=== PATIENT | male | born 1945 | race Caucasian/White ===

== ENCOUNTER 2017-04-14 15:30 | Inpatient (IN) | payer SELFPAY ==
--- NOTE | 2017-04-14 15:40 | ED PDOC ---
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 Shortness of breath has been progressively worsening for past 2 days. is at bedside and tells the history. Patient and speak French and international account representative machine is used. Pt is A&Ox 3. states that patient had subjective fever 2 days ago. Patient denies having any cough, CP, abd pain, N/V/D/C. Patient does complain of LE pain and per , patient is not ambulatory at home. No history of paracentesis. Patient has about 3-4 BMs daily. NKDA Denies Sx Denies tobacco, ETOH or drug use. GI: Dr. Bolivar (Shaniqua Smith) Past Medical History - Provider Review Nursing Documentation Reviewed: Yes - Travel History Have you recently traveled outside [place] w/in the past 3 mons?: No <Shaniqua Smith - Last Filed: 04/14/17 17:31> Family/Social History - Physician Review Nursing Documentation Reviewed: Yes Family/Social History: Unknown Family HX <Shaniqua Smith - Last Filed: 04/14/17 17:31> Allergies/Home Meds <Shaniqua Smith - Last Filed: 04/14/17 17:31> <Freddy Carney - Last Filed: 04/14/17 17:47> Allergies/Adverse Reactions: Allergies No Known Allergies Allergy (Verified 04/14/17 15:49) Home Medications: Home Meds Medication Instructions Recorded Confirmed Dicyclomine [Bentyl] 20 mg PO BID 04/14/17 04/14/17 Furosemide [Lasix] 20 mg PO DAILY 04/14/17 04/14/17 Ledipasvir/Sofosbuvir [Harvoni 1 tab PO DAILY 04/14/17 04/14/17 90-400 mg Tablet] Spironolactone [Aldactone] 50 g PO BID 04/14/17 04/14/17 Review of Systems - Review of Systems Constitutional: Fevers. absent: Fatigue, Weight Change Eyes: Normal. absent: Vision Changes, Photophobia ENT: Normal. absent: Hearing Changes, Sore Throat, Rhinorrhea Respiratory: SOB, Wheezing. absent: Cough, Sputum Cardiovascular: Normal. absent: Chest Pain, Palpitations, Edema, Calf Pain Gastrointestinal: Other (abdominal swelling ). absent: Abdominal Pain, Constipation, Diarrhea, Nausea, Vomiting Genitourinary Male: Normal. absent: Dysuria, Frequency Musculoskeletal: Joint Swelling (LE swelling B/L ). absent: Arthralgias, Back Pain, Neck Pain Skin: Normal. absent: Rash, Pruritis, Skin Lesions, Laceration Neurological: Normal. absent: Headache, Dizziness Endocrine: Normal. absent: Diaphoresis, Polyuria Hemo/Lymphatic: Normal. absent: Adenopathy Psychiatric: Normal. absent: Anxiety, Depression <Amn Saraha - Last Filed: 04/14/17 17:31> Physical Exam Vital Signs Reviewed: Yes Temperature: Febrile Blood Pressure: Normal Pulse: Tachycardic Respiratory Rate: Tachypneic Appearance: Positive for: Ill-Appearing, Uncomfortable Pain Distress: Mild Mental Status: Positive for: Alert and Oriented X 3 - Systems Exam Head: Present: Atraumatic, Normocephalic Pupils: Present: PERRL Conjunctiva: Present: Icteric Mouth: Present: Moist Mucous Membranes Respiratory/Chest: Present: Good Air Exchange, Wheezes, Tachypneic. No: Respiratory Distress, Accessory Muscle Use, Rales, Rhonchi Cardiovascular: Present: Normal S1, S2, Tachycardic. No: Irregular Rhythm Abdomen: Present: Distention, Normal Bowel Sounds. No: Tenderness, Peritoneal Signs, Rebound, Guarding Lower Extremity: Present: Edema (B/L LE edema 2+). No: CALF TENDERNESS Neurological: Present: GCS=15 Skin: Present: Warm, Dry, Normal Color. No: Rashes Psychiatric: Present: Alert, Oriented x 3, Normal Insight, Normal Concentration <SarahShaniqua - Last Filed: 04/14/17 17:31> Medical Decision Making - EKG Interpretation Interpreted by ED Physician: Yes Type: 12 lead EKG <Shaniqua Smith - Last Filed: 04/14/17 17:31> <Freddy Carney - Last Filed: 04/14/17 17:47> ED Course and Treatment: 04/14/17 16:19 71 y/o M presents for SOB likely 2/2 worsening ascites VS. PNA vs. brinchitis Will check: CBC, CMP, cardiac enzymes, lipase, ammonia, PT, PTT, blood and urine cultures, UA Patient will be given motrin, NS 500 cc bolus, xopenex. 04/14/17 16:41 Code sepsis is called at 4:41 pm. Patient is tachycardic, febrile and has lactic acid of 2.3 04/14/17 17:22 Therpeutic paracentesis performed at bedside. Dr. Carney spoke with Dr. Vines who accepts pt under hospitalists service. (Shaniqua Smith) pt seen with resident. pt with liver cirrhosis, febrile, tachycardic, r/o pna, sbp, sepsis. code sepsis called. diagnositic and therapeutic paracentesis performed under US guidance. 4 L removed. accepted by hospital r/o sbp 04/14/17 17:43 (Freddy Carney) - Lab Interpretations Narrative Lab Interpretation (Text): 04/14/17 16:42 lactic acid is 2.3 (Shaniqua Smith) Lab Results: 04/14/17 15:50 04/14/17 15:50 Lab Results 04/14/17 16:48: Ammonia 31 04/14/17 15:50: PT 16.4 H, INR 1.52 H, APTT 37.7 H 04/14/17 15:50: Sodium 130 L, Chloride 99, Potassium 3.8, Carbon Dioxide 27, Anion Gap 8 L, BUN 16, Creatinine 1.0, Est GFR ( Amer) > 60, Est GFR (Non -Af Amer) > 60, Random Glucose 107, Calcium 7.5 L, Total Bilirubin 1.8 H, AST 64 H, ALT 25, Alkaline Phosphatase 127, Lactate Dehydrogenase 574, Total Creatine Kinase 276 H, CK-MB (CK-2) < 0.2, CK-MB (CK-2) % Cancelled, Troponin I 0.03, Total Protein 7.6, Albumin 2.4 L, Globulin 5.2, Albumin/Globulin Ratio 0.5 L, Lipase 180 04/14/17 15:50: pO2 39, VBG pH 7.40, VBG pCO2 45.0, VBG HCO3 27.9, VBG Total CO2 29.3 H, VBG O2 Sat (Calc) 80.7 H, VBG Base Excess 2.6 H, VBG Potassium 4.0, Sodium 131.0 L, Chloride 97.0 L, Glucose 110, Lactate 2.3 H, FiO2 21.0, Venous Blood Potassium 4.0 04/14/17 15:50: WBC 10.3 D, RBC 3.89, Hgb 11.4 L, Hct 33.3 L, MCV 85.6, MCH 29.3, MCHC 34.2, RDW 15.1 H, Plt Count 98 L, MPV 10.4 - RAD Interpretation Radiology Orders: 04/14/17 16:08 CHEST PORTABLE [RAD] Stat - EKG Interpretation EKG Interpretation (Text): 04/14/17 15:40 Sinus tachycardia HR of [address] changes, normal interval and normal axis ( Karim,Shaniqua) - Medication Orders Current Medication Orders: Discontinued Medications Sodium Chloride (Sodium Chloride 0.9%) 500 mls @ 999 mls/hr IV .Q31M STA Stop: 04/14/17 16:36 Last Admin: 04/14/17 16:26 Dose: 999 mls/hr Vancomycin HCl (Vancomycin 1gm) 1 gm in 250 mls @ 167 mls/hr IVPB STAT STA PRN Reason: Protocol Stop: 04/14/17 17:37 Last Admin: 04/14/17 17:13 Dose: 167 mls/hr Piperacillin Sod/Tazobactam Sod (Zosyn 3.375 In Ns 100ml) 100 mls @ 200 mls/hr IVPB STAT STA PRN Reason: Protocol Stop: 04/14/17 16:37 Last Admin: 04/14/17 16:25 Dose: 200 mls/hr Ibuprofen (Motrin Tab) 400 mg PO STAT STA Stop: 04/14/17 16:25 Last Admin: 04/14/17 16:48 Dose: 400 mg Levalbuterol HCl (Xopenex) 0.63 mg IH ONCE STA Stop: 04/14/17 16:10 Last Admin: 04/14/17 16:24 Dose: 0.63 mg Procedures - Time-Out Type of Procedure: therapeutic paracentesis Site of Procedure: RLQ Correct Patient (with visual ID + MR# on ID Band): Yes Correct Procedure: Yes Correct Site Marked: Yes Physician Name: Dr. Shaniqua Smith <Shaniqua Smith - Last Filed: 04/14/17 17:31> Disposition/Present on Arrival - Present on Arrival Any Indicators Present on Arrival: No - Disposition Have Diagnosis and Disposition been Completed?: Yes Disposition Time: 17:23 Patient Plan: Admission <Shaniqua Smith - Last Filed: 04/14/17 17:31> <Freddy Carney - Last Filed: 04/14/17 17:47> - Disposition Diagnosis: Ascites, Sepsis, Shortness of breath Disposition: HOSPITALIZED Patient Problems: Current Active Problems Problem Status Onset Ascites Acute Sepsis Acute Shortness of breath Acute Condition: STABLE Discharge Instructions (ExitCare): Sepsis (ED) Referrals: Franky Rosario [Primary Care Provider] - Follow up with primary Procedure: Fluid Aspiration - Procedure Procedure: Paracentesis - Consent Obtained Consent obtained: Written - Performed By Performed by: Attending Physician - Indications Indication(s): Therapeutic, Diagnostic, Massive ascites, [email or web address] - Contraindications Contraindications: None - Location Location: Right, Abdomen - Anesthetic Technique Anesthetic Technique: Local Anesthetic: Lidocaine 1% Procedure: Usual prep and drape - Appearance Appearance: Straw-colored - Post-procedure Post-procedure: No fluid leak - Complications Complications: None - Patient tolerated procedure Patient tolerated procedure: Well <HadleyyeimiShaniqua - Last Filed: 04/14/17 17:31> - Time Performed Time Performed: 17:30 - Time Out Time Out: Side verified, Site verified, Patient ID confirmed, Sterile procedures obs. - Procedure Procedure: Paracentesis - Consent Obtained Consent obtained: Written - Performed By Performed by: Attending Physician - Indications Indication(s): Therapeutic, Diagnostic, Massive ascites, [email or web address] - Contraindications Contraindications: Coagulopathy (inr 1.5) - Location Location: Right - Anesthetic Technique Anesthetic Technique: Local Anesthetic: Lidocaine 1% Procedure: Usual prep and drape, Ultrasnd. guidance util. - Appearance Appearance: Serous - Drained Drained ml: 4 liters - Post-procedure Post-procedure: No fluid leak - Complications Complications: None - Patient tolerated procedure Patient tolerated procedure: Well <Freddy Carney - Last Filed: 04/14/17 17:47>
[2017-04-14] MEDS ORDERED: Sodium Chloride 0.9% 500 ML IV STA (16:06)
[2017-04-14] MEDS ORDERED: Piperacillin/Tazobact 3.375 gm 100 ML IVPB STA (16:08)
[2017-04-14] MEDS ORDERED: Vancomycin 1gm in NS 250ml 1 GM/250 ML BAG IVPB STA (16:08)
[2017-04-14] MEDS ORDERED: Levalbuterol 0.63 MG/3 ML Inhal Soln UD IH STA (16:09)
[2017-04-14 16:20] LABS: HEMATOCRIT 33.3 % (42.0-52.0); MEAN CELL VOLUME 85.6 fl (80.0-105.0); MEAN CORPUSCULAR HEMOGLOBIN 29.3 pg (25.0-35.0); MEAN CORPUSCULAR HGB CONC 34.2 g/dl (31.0-37.0); MEAN PLATELET VOLUME 10.4 fl (7.0-11.0); RED CELL DISTRIBUTION WIDTH 15.1 % (11.5-14.5); WHITE BLOOD COUNT 10.3 10^3/ul (4.5-11.0)
[2017-04-14 16:26] LABS: VENOUS BLOOD GAS BASE EXCESS 2.6 mmol/L (0.0-2.0)
[2017-04-14 16:36] LABS: ALB/GLOB RATIO 0.5 (1.1-1.8); ALKALINE PHOSPHATASE 127 U/L (38-133); ALT/SGPT 25 U/L (7-56); AST/SGOT 64 U/L (15-59); BILIRUBIN,TOTAL 1.8 mg/dL (0.2-1.3); BLOOD UREA NITROGEN 16 mg/dL (7-21); CALCIUM 7.5 mg/dL (8.4-10.5); CARBON DIOXIDE 27 mmol/L (21-33); CHLORIDE 99 mmol/L (98-107); GFR AFRICAN-AMERICAN > 60; GLUCOSE,RANDOM 107 mg/dL (70-110); LIPASE 180 U/L (23-300); POTASSIUM 3.8 mmol/L (3.6-5.0); SODIUM 130 mmol/L (132-148); TOTAL PROTEIN 7.6 g/dL (5.8-8.3)
[2017-04-14 16:41] LABS: INR 1.52 (0.93-1.08); PARTIAL THROMBOPLASTIN TIME 37.7 Seconds (23.7-30.8)
--- NOTE | 2017-04-14 16:46 | RAD ---
HISTORY: shortness of breath COMPARISON: No prior. FINDINGS: LUNGS: No active pulmonary disease. PLEURA: No significant pleural effusion identified, no pneumothorax apparent. CARDIOVASCULAR: Mild cardiomegaly OSSEOUS STRUCTURES: No significant abnormalities. VISUALIZED UPPER ABDOMEN: Normal. OTHER FINDINGS: None. IMPRESSION: No active disease.
[2017-04-14 16:48] LABS: TROPONIN I 0.03 ng/mL
[2017-04-14 18:08] LABS: BODY FLUID TYPE PERITONEAL
--- NOTE | 2017-04-14 18:26 | CP.PCM.HP ---
<ZEV WETZEL - Last Filed: 04/14/17 19:25> History of Present Illness - History of Present Illness History of Present Illness: CC: Shortness of breath 71 yo M Syriac-only speaking with 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 Pt son and mother is at bedside to translate. For the last 2 days, pt c/o worsening shortness of breath with subjective fevers. Pt states that he was unable to take care of him on his own at home as his condition was worsening and decided to bring him to the ED. Pt reports having a distended abdomen since being in [place], but denied ever having a paracentesis. Pt also c/o of b/l LE swelling and right LE pain with no apparent injury; pt is not ambulatory at home. Son reports no change in patient's mental status. Pt is originally from [place], where he was initially receiving treatment for his cirrhosis and hepatitis C. Pt came to the [place] about 1 year ago and is continuing treatment with [facility]. Pt denies CP, n/v/d, abdominal pain, melena, BRBPR, dysuria, pyuria, hematuria, chills, dizziness, ADAM, or rashes. PMHx: cirrhosis 2/2 hepatitis C Surg: denied PMHx: non-contributory All: NKDA Social: Denies tobacco, EtOH, or illicit drug use Meds: - Harvoni 90/400 daily - Dicyclomine 20 mg BID - Spironolactone 50 mg BID - Lasix 20 mg Daily Present on Admission - Present on Admission Any Indicators Present on Admission: No Review of Systems - Review of Systems Systems not reviewed;Unavailable: Language Barrier (Syriac speaking) - Constitutional Constitutional: Fever, Weakness. absent: Chills, Fatigue, Headache, Lethargy - EENT Eyes: absent: Change in Vision, Pain, Photophobia Ears: absent: Ear Pain Nose/Mouth/Throat: absent: Nasal Congestion, Nasal Discharge, Nasal Obstruction - Cardiovascular Cardiovascular: Leg Edema (b/l). absent: Chest Pain, Irregular Heart Rhythm, Syncope - Respiratory Respiratory: Dyspnea, Dyspnea on Exertion. absent: Hemoptysis, Wheezing, Stridor - Gastrointestinal Gastrointestinal: Bloating. absent: Abdominal Pain, Change in Stool Character, Coffee Ground Emesis, Constipation, Diarrhea, Dysphagia, Hematemesis, Hematochezia, Loose Stools, Melena - Genitourinary Genitourinary: absent: Dysuria, Flank Pain, Hematuria, Pyuria - Musculoskeletal Musculoskeletal: Arthralgias (RLE), Myalgias (RLE). absent: Numbness, Stiffness , Tingling - Integumentary Integumentary: absent: Erythema, Lesions, Non-Healing Lesions, Pruritus, Rash, Skin Ulcer, Jaundice - Neurological Neurological: absent: Behavioral Changes, Dizziness, Numbness, Tremor - Endocrine Endocrine: As Per HPI - Hematologic/Lymphatic Hematologic: As Per HPI Past Patient History - Infectious Disease Hx of Infectious Diseases: None - Past Social History Smoking Status: Never Smoked - CARDIAC Hx Cardiac Disorders: No - PULMONARY Hx Respiratory Disorders: No - NEUROLOGICAL Hx Neurological Disorder: No - HEENT Hx HEENT Problems: No - RENAL Hx Chronic Kidney Disease: No - ENDOCRINE/METABOLIC Hx Endocrine Disorders: No - HEMATOLOGICAL/ONCOLOGICAL Hx Blood Disorders: Yes Hx Hepatitis C: Yes - INTEGUMENTARY Hx Dermatological Problems: No - MUSCULOSKELETAL/RHEUMATOLOGICAL Hx Musculoskeletal Disorders: No - GASTROINTESTINAL Hx Gastrointestinal Disorders: Yes Hx Liver Failure: Yes - GENITOURINARY/GYNECOLOGICAL Hx Genitourinary Disorders: No - PSYCHIATRIC Hx Psychophysiologic Disorder: No Hx Substance Use: No - SURGICAL HISTORY Hx Surgeries: No - ANESTHESIA Hx Anesthesia: No Meds Allergies/Adverse Reactions: Allergies Allergy/AdvReac Type Severity Reaction Status Date / Time No Known Allergies Allergy Verified 04/14/17 15:49 Physical Exam - Constitutional Appears: No Acute Distress - Head Exam Head Exam: ATRAUMATIC, NORMOCEPHALIC - Eye Exam Eye Exam: EOMI, PERRL. absent: Scleral icterus Additional comments: Arcus senilis b/l - ENT Exam ENT Exam: Normal Oropharynx - Neck Exam Neck exam: Positive for: Full Rom. Negative for: Lymphadenopathy, Tenderness, Thyromegaly - Respiratory Exam Respiratory Exam: Clear to Auscultation Bilateral. absent: Rales, Rhonchi, Wheezes - Cardiovascular Exam Cardiovascular Exam: Tachycardia. absent: Diastolic murmur, Gallop, Rubs, Systolic Murmur - GI/Abdominal Exam GI & Abdominal Exam: Distended. absent: Firm, Guarding, Rebound, Tenderness ( No fluid wave, no caput medusae) - Exam Exam: Scrotal Swelling - Extremities Exam Extremities exam: Positive for: pedal edema (b/l L>R 2+/4 up to tibial plateau) , pedal pulses present. Negative for: normal capillary refill (slightly delayed ~3 seconds) Additional comments: L hip/knee PROM wnl, not TTP, negative anterior/posterior drawer test - Neurological Exam Neurological exam: Alert, CN II-XII Intact, Oriented x3 - Psychiatric Exam Psychiatric exam: Normal Affect, Normal Mood - Skin Skin Exam: Dry, Intact, Normal Color, Warm Additional comments: Poor skin turgor, no spider angiomas, no palmar erythema Results - Vital Signs Recent Vital Signs: Last Vital Signs Temp 102.9 F H 04/14/17 16:48 Pulse 116 H 04/14/17 15:30 Resp 18 04/14/17 15:42 BP 135/74 04/14/17 15:30 Pulse Ox 100 04/14/17 16:04 - Labs Result Diagrams: 04/14/17 15:50 04/14/17 15:50 Labs: Laboratory Results - last 24 hr 04/14/17 18:07 Fluid Source Peritoneal Assessment & Plan - Assessment and Plan (Free Text) Assessment: 71 yo Syriac speaking M with PMHx of cirrhosis 2/2 hepatitis C will be admitted for evaluation and treatment of sepsis and SOB 2/2 worsening ascites due to cirrhosis/hepatitis C. Plan: 1. Sepsis * On admission, pt febrile at 102.9 F, tachycardic at 116, and ascites * Code sepsis called in ED * Rocephin 1 gm IVPB daily * F/u fluid, blood, and urine cultures * F/u procalcitonin * Monitor on telemetry 2. Ascities 2/2 cirrhosis/hepatitis C * Paracentesis in the ED yielded 4 L of straw colored fluid * F/u peritoneal fluid analysis (Cell count, glucose, LDH, lipase, protein, culture) * Pt hypotensive s/p paracentesis, start Albumin 12.5 gm in AM * Cont. Harvoni daily x 5 days to complete treatment 3. Peripheral edema * Lasix 40 mg IVP * Spironolactone 50 mg PO BID GI/DVT PPx * Protonix * SCDs, will not give anticoagulation at this time as the pt is coagulopathic 2/ 2 cirrhosis Pt seen with Dr[address] Vines. <Humberto Vines B - Last Filed: 04/15/17 14:50> Results - Vital Signs Recent Vital Signs: Last Vital Signs Temp 98.5 F 04/15/17 00:01 Pulse 83 04/15/17 09:07 Resp 20 04/15/17 00:01 BP 98/67 L 04/15/17 09:20 Pulse Ox 100 04/15/17 00:01 - Labs Result Diagrams: 04/15/17 04:30 04/15/17 04:30 Labs: Laboratory Results - last 24 hr 04/14/17 04/14/17 04/15/17 18:07 19:10 04:30 WBC 5.9 D RBC 3.24 L Hgb 9.2 L D Hct 27.9 L MCV 86.1 MCH 28.4 MCHC 33.0 RDW 15.3 H Plt Count 86 L MPV 10.3 pO2 108 H VBG pH 7.44 H VBG pCO2 41.0 VBG HCO3 27.8 VBG Total CO2 29.1 H VBG O2 Sat (Calc) 99.2 H VBG Base Excess 3.3 H VBG Potassium 3.8 Sodium 131.0 L Chloride 103.0 Glucose 98 Lactate 1.7 FiO2 21.0 Potassium Carbon Dioxide Anion Gap BUN Creatinine Est GFR ( Amer) Est GFR (Non-Af Amer) Random Glucose Lactic Acid Calcium Phosphorus Magnesium Total Bilirubin AST ALT Alkaline Phosphatase Total Protein Albumin Globulin Albumin/Globulin Ratio Venous Blood Potassium 3.8 Urine Color Urine Appearance Urine pH Ur Specific Soper Urine Protein Urine Glucose (UA) Urine Ketones Urine Blood Urine Nitrate Urine Bilirubin Urine Urobilinogen Ur Leukocyte Esterase Urine RBC Urine WBC Urine Bacteria Fluid Source Peritoneal Fluid Appearance Clear Fluid WBC 25.3 Fluid RBC 26.4 H Fluid Tot Cell Count 100 H Fluid Neutrophils 1.0 H Fluid Lymphocytes 90.0 H Fld Monocyte/Macrophag 9 H Fluid Comment Yellow 04/15/17 04/15/17 04/15/17 04:30 09:08 10:33 WBC RBC Hgb Hct MCV MCH MCHC RDW Plt Count MPV pO2 VBG pH VBG pCO2 VBG HCO3 VBG Total CO2 VBG O2 Sat (Calc) VBG Base Excess VBG Potassium Sodium 133 Chloride 102 Glucose Lactate FiO2 Potassium 3.7 Carbon Dioxide 25 Anion Gap 10 BUN 21 Creatinine 1.2 Est GFR ( Amer) > 60 Est GFR (Non-Af Amer) 60 Random Glucose 84 Lactic Acid 4.1 H* Calcium 7.1 L Phosphorus 3.6 Magnesium 1.6 L Total Bilirubin 1.8 H AST 57 ALT 23 Alkaline Phosphatase 86 Total Protein 6.4 Albumin 2.1 L Globulin 4.3 Albumin/Globulin Ratio 0.5 L Venous Blood Potassium Urine Color Yellow Urine Appearance Sl cloudy Urine pH 5.5 Ur Specific Soper 1.025 Urine Protein 30 H Urine Glucose (UA) Negative Urine Ketones Negative Urine Blood Large H Urine Nitrate Positive H Urine Bilirubin Small H Urine Urobilinogen 1.0 H Ur Leukocyte Esterase Moderate H Urine RBC 1 - 3 Urine WBC 10 - 15 Urine Bacteria Many Fluid Source Fluid Appearance Fluid WBC Fluid RBC Fluid Tot Cell Count Fluid Neutrophils Fluid Lymphocytes Fld Monocyte/Macrophag Fluid Comment Attending/Attestation - Attestation I have personally seen and examined this patient.: Yes I have fully participated in the care of the patient.: Yes I have reviewed all pertinent clinical information: Yes Notes (Text): I have seen and examined patient at bedside. 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 Upon admission, he was found to have fever, tachycardia, coagulopathy, transaminitis and lactic acidosis. SBP was suspected. Ascitic fluid was tapped and 3-4 L were removed. Bergeron cultures ordered along with procal. Will start 3rd generation cephalosporin. Will follow up on ascitic fluid analysis. Subsequently he developed hypotension, therefore albumin was started. Hold diuretics due to hemodynamic instability. Will monitor patient very closely. Will order duplex US to rule out PVT. Ammonia level normal. Chilg Mora 9 and MELD score of 13. Will consult ID and GI. Upon discharge patient will follow up with Dr Little. Dr Humberto Vines
[2017-04-14 19:27] LABS: VENOUS BLOOD GAS BASE EXCESS 3.3 mmol/L (0.0-2.0); VENOUS BLOOD PH 7.44 (7.32-7.43)
[2017-04-14 20:40] LABS: BF GROSS APPEARANCE CLEAR (CLEAR)
[2017-04-14] MEDS: HARVONI PO SCH (21:00)
[2017-04-14] MEDS ORDERED: Pneumococcal 23-Valent Vaccine IM ONE (21:55)
[2017-04-14 22:27] VITALS: BMI 29.2
--- NOTE | 2017-04-14 23:54 | PCM.SEPTIC ---
<America Ambrose - Last Filed: 04/14/17 23:54> Sepsis Progress Note - Reassessment Type Date of Evaluation: 04/14/17 Time of Evaluation: 23:54 Reassessment Type: Non-invasive reassessment - Non Invasive Reassessment Were the most recent vital sign reviewed: Yes Vital Sign (Latest): Temp Pulse Resp BP Pulse Ox 98.3 F 96 H 20 84/48 L 100 04/14/17 21:39 04/14/17 21:39 04/14/17 21:39 04/14/17 21:39 04/14/17 18:30 Cardiovascular: Yes: Regular Rate, Rhythm Respiratory: Yes: Normal Breath Sounds Capillary Refill: Normal (Less than 2 sec) Pulses: Normal Radial, Normal Dorsalis Pedis, Normal Posterior Tibialis Skin: Normal Color <CarballoChio - Last Filed: 04/15/17 05:08> Sepsis Progress Note - Non Invasive Reassessment Vital Sign (Latest): Temp Pulse Resp BP Pulse Ox 98.5 F 83 20 88/43 L 100 04/15/17 00:01 04/15/17 02:00 04/15/17 00:01 04/15/17 00:01 04/15/17 00:01 Attending/Attestation - Attestation I have personally seen and examined this patient.: Yes I have fully participated in the care of the patient.: Yes I have reviewed all pertinent clinical information, including history, physical exam and plan: Yes Notes (Text): 04/15/17 05:07 Agree with biomedical engineering internship.
[2017-04-15 05:24] LABS: HEMATOCRIT 27.9 % (42.0-52.0); MEAN CELL VOLUME 86.1 fl (80.0-105.0); MEAN CORPUSCULAR HEMOGLOBIN 28.4 pg (25.0-35.0); MEAN PLATELET VOLUME 10.3 fl (7.0-11.0); RED CELL DISTRIBUTION WIDTH 15.3 % (11.5-14.5); WHITE BLOOD COUNT 5.9 10^3/ul (4.5-11.0)
[2017-04-15] MEDS ORDERED: Sodium Chloride 0.9% 500 ML IV STA ×2 (05:39→05:40)
[2017-04-15] MEDS: Albumin Human 25% (12.5 gm/50 ml) IV SCH ×3 (05:50→13:30)
[2017-04-15 06:38] LABS: ALB/GLOB RATIO 0.5 (1.1-1.8); ALKALINE PHOSPHATASE 86 U/L (38-133); ALT/SGPT 23 U/L (7-56); AST/SGOT 57 U/L (15-59); BILIRUBIN,TOTAL 1.8 mg/dL (0.2-1.3); BLOOD UREA NITROGEN 21 mg/dL (7-21); CALCIUM 7.1 mg/dL (8.4-10.5); CARBON DIOXIDE 25 mmol/L (21-33); CHLORIDE 102 mmol/L (95-110); GFR AFRICAN-AMERICAN > 60; GLUCOSE,RANDOM 84 mg/dL (70-110); MAGNESIUM 1.6 mg/dL (1.7-2.2); PHOSPHOROUS 3.6 mg/dL (2.5-4.5); POTASSIUM 3.7 mmol/L (3.6-5.0); SODIUM 133 mmol/L (132-148); TOTAL PROTEIN 6.4 g/dL (5.8-8.3)
--- NOTE | 2017-04-15 08:36 | US ---
PROCEDURE: Portal vein duplex ultrasound. CLINICAL HISTORY: Cirrhosis. Deteriorating liver function. Evaluate for portal vein thrombosis. PHYSICIAN(S): Ludwig Girard M.D. FINDINGS: The liver parenchyma is heterogeneous with a nodular contour, consistent with cirrhosis. No obvious mass is appreciated on these limited images. The extrahepatic portal vein is patent with hepatopetal flow. The hepatic artery is patent. Imaging of the central patent veins are patent. The spleen is borderline enlarged. There is moderate ascites in the upper abdomen. IMPRESSION: 1. Patent portal vein with hepatopetal flow.
[2017-04-15] MEDS ORDERED: Magnesium Sulfate 2 GM in Sodium Chloride 0.9% 100 ML IVPB ONE (08:55)
[2017-04-15] MEDS: Levalbuterol 0.63 MG/3 ML Inhal Soln UD IH SCH ×3 (08:59→20:06)
--- NOTE | 2017-04-15 09:18 | RAD ---
HISTORY: SOB COMPARISON: 04/14/2017 FINDINGS: LUNGS: No active pulmonary disease. PLEURA: No significant pleural effusion identified, no pneumothorax apparent. CARDIOVASCULAR: Mild vascular congestion OSSEOUS STRUCTURES: No significant abnormalities. VISUALIZED UPPER ABDOMEN: Normal. OTHER FINDINGS: None. IMPRESSION: Mild vascular congestion.
[2017-04-15 09:32] LABS: PH,URINE 5.5 (4.7-8.0); URINE BILIRUBIN SMALL (NEGATIVE); URINE BLOOD LARGE (NEGATIVE); URINE GLUCOSE (UA) NEGATIVE (NEGATIVE); URINE KETONE NEGATIVE (NEGATIVE); URINE LEUKOCYTE ESTERASE MODERATE Leu/uL (NEGATIVE); URINE PROTEIN 30 mg/dL (<30 mg/dL)
[2017-04-15 09:34] LABS: URINE APPEARANCE SL CLOUDY (CLEAR); URINE COLOR YELLOW (YELLOW)
--- NOTE | 2017-04-15 09:39 | CARD ---
APPROVED REPORT EKG Measurement Heart [id number] <Conclusion> Sinus tachycardia Otherwise normal ECG
[2017-04-15 09:44] LABS: URINE BACTERIA MANY (NEG)
[2017-04-15 09:52] LABS: BODY FLUID TOTAL COUNT 100 (0-0)
[2017-04-15] MEDS ORDERED: cefTRIAXone 1 gm 1 GM/100 ML BAG IVPB SCH (10:00)
[2017-04-15] MEDS ORDERED: Vancomycin 1gm in NS 250ml 1 GM/250 ML BAG IVPB SCH (10:15)
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
--- NOTE | 2017-04-15 11:41 | CP.PCM.PN ---
<Raquel Mccann - Last Filed: 04/15/17 12:57> Subjective - Date & Time of Evaluation Date of Evaluation: 04/15/17 Time of Evaluation: 07:50 - Subjective Subjective: Raquel Mccann DO, PGY-1, Internal Medicine, Hospitalist Service Patient seen and examined at bedside. Per nursing, patient has been tachycardic with HR in 140s and hypotensive overnight. Patient is s/p paracentesis with removal of 3L of fluid. Patient currently short of breath and c/o dysuria. Denies headache, dizziness, changes in vision, cp, palpitations, cough, diarrhea. Objective - Vital Signs/Intake and Output Vital Signs (last 24 hours): Temp Pulse Resp BP Pulse Ox 98.5 F 83 20 98/67 L 100 04/15/17 00:01 04/15/17 09:07 04/15/17 00:01 04/15/17 09:20 04/15/17 00:01 Intake and Output: 04/15/17 04/15/17 06:59 18:59 Intake Total 0 1200 Output Total 200 Balance 0 1000 - Medications Medications: Current Medications Albumin Human (Albumin Human 25% (12.5 Gm/50 Ml)) 12.5 gm IV Q6 [facility] Stop: 04/15/17 12:01 Last Admin: 04/15/17 05:50 Dose: 12.5 gm Famotidine (Pepcid) 40 mg PO HS [facility] Last Admin: 04/14/17 22:00 Dose: 40 mg Furosemide (Lasix) 40 mg IVP DAILY [facility] Home Med (Home Med) 1 unit PO 2000 [facility] Stop: 04/18/17 20:01 Last Admin: 04/14/17 21:00 Dose: 1 unit Vancomycin HCl (Vancomycin 1gm) 1 gm in 250 mls @ 167 mls/hr IVPB DAILY [facility] PRN Reason: Protocol Ceftriaxone Sodium (Rocephin 1 Gram Ivpb) 1 gm in 100 mls @ 100 mls/hr IVPB DAILY [facility] PRN Reason: Protocol Levalbuterol HCl (Xopenex) 0.63 mg IH [id number] [facility] Last Admin: 04/15/17 08:59 Dose: 0.63 mg Spironolactone (Aldactone) 50 mg PO BID [facility] - Labs Labs: 04/15/17 04:30 04/15/17 04:30 PT 16.4 Seconds (9.9-11.8) H 04/14/17 15:50 INR 1.52 (0.93-1.08) H 04/14/17 15:50 APTT 37.7 Seconds (23.7-30.8) H 04/14/17 15:50 - Constitutional Appears: In Acute Distress - Head Exam Head Exam: ATRAUMATIC, NORMAL INSPECTION - Eye Exam Eye Exam: EOMI, Normal appearance - ENT Exam ENT Exam: Mucous Membranes Moist - Neck Exam Neck Exam: Full ROM - Respiratory Exam Respiratory Exam: Rhonchi, Wheezes, Respiratory Distress. absent: Rales - Cardiovascular Exam Cardiovascular Exam: Tachycardia, +S1, +S2. absent: Murmur - GI/Abdominal Exam GI & Abdominal Exam: Distended, Soft. absent: Rigid, Tenderness - Exam Exam: Scrotal Swelling Additional comments: Valdez in - Extremities Exam Additional comments: +1 LE edema bilaterally + pedal pulses - Back Exam Back Exam: NORMAL INSPECTION - Neurological Exam Neurological Exam: Alert, Awake, Oriented x3 - Psychiatric Exam Psychiatric exam: Normal Affect, Normal Mood - Skin Skin Exam: Normal Color, Warm Assessment and Plan - Assessment and Plan (Free Text) Assessment: 71 yo Tajik speaking M with PMHx of cirrhosis 2/2 hepatitis C will be admitted for evaluation and treatment of sepsis and SOB 2/2 worsening ascites due to cirrhosis/hepatitis C. Plan: 1. Sepsis likely 2/2 to urinary tract infection * On admission, pt febrile at 102.9 F, tachycardic at 116, and ascites, lactate 2.3 * Code sepsis called in ED, recieved Vanco and Zosyn in the ED * Patient became hypotensive despite NS 500cc bolus x 2, receiving albumin * Patient was also tachypnic and in respiratory distress this morning, received Xopenex, lasix 20mg IVP STAT * CXR showing mild vascular congestion * ICU called to evaluate patient, BP on evaluation was 127/63, afebrile, will continue to monitor * Continue Rocephin 1 gm IVPB daily (day 1), started on Vancomycin (day 2) * UA showing +nitrates, +leuk esterase, many bacteria * ID consulted, f/u recommendations * F/u fluid, blood, and urine cultures * Urine output minimal, continue to monitor * F/u procalcitonin, lactate, repeat ammonia levels * Abd US: patent portal vein w hepatopetal flow * Monitor on telemetry 2. Ascities 2/2 cirrhosis/chronic hepatitis C * Paracentesis in the ED yielded 3 L of straw colored fluid * Low suspicion for SBP as fluid WBCs low * F/u peritoneal fluid analysis (Cell count, glucose, LDH, lipase, protein, culture) * Pt hypotensive s/p paracentesis, started on Albumin * Cont. Harvoni daily x 5 days to complete treatment * Will hold Diuresis for now 3. Scrotal Edema * Testicular US ordered * Urology consulted, f/u recommendations 4. Peripheral edema * S/P 500cc NS bolus x 2 * F/U echocardiogram to assess EF * Will hold diueresis at this time * LE doppler ordered to r/o DVT 5. Thrombocytopenia likely 2/2 Cirrhosis * Platelets 86 * Continue to monitor 6. Hypomagnesemia * Mg 1.6, will repleat * Continue to monitor GI/DVT PPx * Pepcid * SCDs, will not give anticoagulation at this time as the pt is coagulopathic 2/ 2 cirrhosis <Humberto Vines B - Last Filed: 04/15/17 15:12> Objective - Vital Signs/Intake and Output Vital Signs (last 24 hours): Temp Pulse Resp BP Pulse Ox 98.5 F 83 20 98/67 L 100 04/15/17 00:01 04/15/17 09:07 04/15/17 00:01 04/15/17 09:20 04/15/17 00:01 Intake and Output: 04/15/17 04/15/17 06:59 18:59 Intake Total 0 1200 Output Total 200 Balance 0 1000 - Medications Medications: Current Medications Famotidine (Pepcid) 40 mg PO [facility] Last Admin: 04/14/17 22:00 Dose: 40 mg Furosemide (Lasix) 40 mg IVP DAILY [facility] Home Med (Home Med) 1 unit PO 1999 [facility] Stop: 04/18/17 20:01 Last Admin: 04/14/17 21:00 Dose: 1 unit Vancomycin HCl (Vancomycin 1gm) 1 gm in 250 mls @ 167 mls/hr IVPB DAILY [facility] PRN Reason: Protocol Ceftriaxone Sodium (Rocephin 1 Gram Ivpb) 1 gm in 100 mls @ 100 mls/hr IVPB DAILY [facility] PRN Reason: Protocol Levalbuterol HCl (Xopenex) 0.63 mg IH [id number] [facility] Last Admin: 04/15/17 13:33 Dose: 0.63 mg Spironolactone (Aldactone) 50 mg PO BID [facility] - Labs Labs: 04/15/17 04:30 04/15/17 04:30 PT 16.4 Seconds (9.9-11.8) H 04/14/17 15:50 INR 1.52 (0.93-1.08) H 04/14/17 15:50 APTT 37.7 Seconds (23.7-30.8) H 04/14/17 15:50 Attending/Attestation - Attestation I have personally seen and examined this patient.: Yes I have fully participated in the care of the patient.: Yes I have reviewed all pertinent clinical information, including history, physical exam and plan: Yes Notes (Text): I have seen and examined patient at bedside. This is 71 year old Tajik male with history of hep c induced cirrhosis on Harvoni who was admitted for evaluation of worsening shortness of breath and worsening of abdominal distention and scrotal swelling. Upon admission, he was found to have fever, tachycardia, coagulopathy, transaminitis and lactic acidosis. SBP was suspected. Ascitic fluid was tapped and 3-4 L were removed. Subsequently he developed hypotension. Albumin was given. Since last night BP has been low. Patient also has been tachycardic and afebrile. NS bolus was given this morning. When I saw the patient, he was sob and crackles were noted. CXR revealed venous congestion. Lasix 20 IVP was given. As patient was hypotensive and was requiring lasix, ICU consult was obtained for hypotension however patient's BP improved on its own. Decision was made to closely observe the patient. Last night patient was not able to pass urine and valdez was inserted. UA was sent this morning and it is suggestive of UTI. Continue rocephin. Discussed with ID and GI. Today scrotal US, LE US and urology consult was ordered. Abdomen US revealed patent portal veins. Upon discharge patient will follow up with Dr Little. Dr Humberto Vines
[2017-04-15] MEDS ORDERED: Piperacillin/Tazobact 3.375 gm 100 ML IVPB SCH (12:00)
--- NOTE | 2017-04-15 12:48 | US ---
HISTORY: Scrotal edema TECHNIQUE: Realtime sonography through the scrotum with color and doppler flow. COMPARISON: None Available. FINDINGS: RIGHT TESTICLE: Measures 2.6 x 0.9 x 2.7 cm. Normal echotexture and flow. RIGHT EPIDIDYMIS: Right epididymis is not clearly visualized. . LEFT TESTICLE: Measures 2.3 x 1.7 x 3.9 cm. Normal echotexture and flow. LEFT EPIDIDYMIS: Left epididymis is not clearly visualized. HYDROCELE: Moderate to large left-sided hydrocele is seen VARICOCELE: None. OTHER FINDINGS: None. IMPRESSION: No evidence of testicular torsion or mass. [id number] left-sided hydroceles. Both epididymis are not well visualized in this study.
--- NOTE | 2017-04-15 13:17 | US ---
HISTORY: Leg pain and swelling. Evaluate for DVT PHYSICIAN(S): Ludwig Girard MD. TECHNIQUE: Duplex sonography and color-flow Doppler with graded compression were used to evaluate the deep venous systems of both lower extremities. FINDINGS: The visualized deep venous systems of both lower extremities are sonographically normal and compressible. Normal wave forms and augmentation are seen. There is no sonographic evidence for deep venous thrombosis in the visualized segments of both lower extremities. IMPRESSION: No sonographic evidence for deep venous thrombosis in the visualized segments of both lower extremities.
[2017-04-15] MEDS: cefTRIAXone 1 gm 1 GM/100 ML BAG IVPB SCH (14:58)
--- NOTE | 2017-04-15 17:37 | CARD ---
APPROVED REPORT EXAM: Two-dimensional and M-mode echocardiogram with Doppler and color Doppler. INDICATION CIRRHOTIC CMP 2D DIMENSIONS IVSd0.9 (0.7-1.1cm)LVDd4.5 (3.9-5.9cm) PWd1.0 (0.7-1.1cm)LVDs2.9 (2.5-4.0cm) FS (%) 35.0 %LVEF (%)64.5 (>50%) M-Mode DIMENSIONS Aortic Root3.20 (2.2-3.7cm)Aortic Cusp Exc.1.80 (1.5-2.0cm) Aortic Valve AoV Peak Oghrdcom863.0cm/sAoV VTI36.3cmAO Peak GR.20mmHg LVOT Peak Rlshjghi836.0cm/sLVOT VTI31.30cmAO Mean GR.10mmHg Mitral Valve MV E Lvicalbl21.7cm/sMV A Azfqvulx30.8cm/sE/A ratio1.1 TDI Lateral E' Peak V10.20cm/sMedial E' Peak V6.43cm/sE/Lateral E'9.5 E/Medial E'15.0 Pulmonary Valve PV Peak Hpxjzvgr54.3cm/sPV Peak Grad.3mmHg Tricuspid Valve TR Peak [id number]/sRAP SEAOWNCO61tyEdUR Peak Gr.30mmHg [id number] LEFT VENTRICLE The left ventricle is normal size. There is normal left ventricular wall thickness. The left ventricular function is normal. The left ventricular ejection fraction is within the normal range. There is normal LV segmental wall motion. The left ventricular diastolic function is normal. No left ventricle thrombus noted on this study. There is no ventricular septal defect visualized. There is no left ventricular aneurysm. There is no mass noted in the left ventricle. RIGHT VENTRICLE The right ventricle is normal size. There is normal right ventricular wall thickness. The right ventricular systolic function is normal. ATRIA The left atrium size is normal. The right atrium size is normal. The interatrial septum is intact with no evidence for an atrial septal defect. AORTIC VALVE The aortic valve is thickened but opens well. The aortic valve is severely sclerotic. There is trace aortic regurgitation. There is no aortic valvular stenosis. There is no aortic valvular vegetation. MITRAL VALVE The mitral valve is thickened but opens well. Mitral regurgitation is mild to moderate. There is no mitral valve stenosis. There is no evidence of mitral valve prolapse. TRICUSPID VALVE The tricuspid valve leaflets are thickened , but open well. There is mild to moderate tricuspid regurgitation.RVSP-40 mmof hg. There is no tricuspid valve stenosis. There is no tricuspid valve prolapse or vegetation. PULMONIC VALVE The pulmonary valve is normal in structure. There is trace pulmonic valvular regurgitation. There is no pulmonic valvular stenosis. GREAT VESSELS The aortic root is normal in size. The ascending aorta is normal in size. The pulmonary artery is normal. The IVC is normal in size and collapses >50% with inspiration. PERICARDIAL EFFUSION There is no pleural effusion. There is no pericardial effusion. <Conclusion> Normal Chamber SIZE. EF-60-65% The aortic valve is severely sclerotic. There is no aortic valvular stenosis. Mitral regurgitation is mild to moderate. There is mild to moderate tricuspid regurgitation.RVSP-40 mmof hg. The IVC is normal in size and collapses >50% with inspiration. There is no pericardial effusion. No Vegetation or thrombus noted.
[2017-04-15] MEDS: HARVONI PO SCH (21:57)
--- NOTE | 2017-04-15 23:37 | CON ---
DATE: 04/15/2017 REQUESTING PHYSICIAN: Dr. Vines. REASON FOR CONSULTATION: I have been asked to see this 71-year-old male with a history of cirrhosis of the liver secondary to hepatitis C, currently being treated with Harvoni, who comes to the hospital with increasing shortness of breath over the last several months. The patient only speaks Kinyarwanda, history is obtained from the chart and the patient's nurse. I have been asked to see this patient for possible sepsis and SBP, he underwent a large-volume paracentesis yesterday with removal of several liters of clear fluid. The fluid WBC was only 25. The patient's urine shows white blood cell count and is nitrite positive. The patient apparently has been having increasing abdominal distention and increasing scrotal size over the last several weeks. PAST MEDICAL HISTORY: Is as above. SOCIAL HISTORY: He denies cigarette smoking or alcohol use. FAMILY HISTORY: Noncontributory. REVIEW OF SYSTEMS: A 14-point review of systems is unobtainable due to language barrier. PHYSICAL EXAMINATION: GENERAL: An elderly male lying in bed, appearing comfortable. VITAL SIGNS: Reveal temperature of 98.5, blood pressure 98/67, heart rate of 83. HEENT: Reveal sclerae to be white. Conjunctivae pink. NECK: Supple. CHEST: Reveal scattered rales at the bases. HEART: Reveals a regular rate and rhythm. ABDOMEN: Softly distended, nontender. No mass. EXTREMITIES: Show 1+ pedal edema. He does have a markedly edematous fluid-filled scrotum. LABORATORY DATA: Reveal white blood cell count 5.9, hemoglobin 9.2. Chemistries reveal normal electrolytes, AST is 57, ALT 23, alkaline phosphatase of 86. Fluid white blood cell count is 25.3. Urine is positive for moderate leukocyte esterase and positive nitrites. IMPRESSION: This is a 71-year-old male with cirrhosis of the liver secondary to hepatitis C, admitted to the hospital with shortness of breath and possible sepsis. This does not appear to be spontaneous bacterial peritonitis as indicated by a non-elevated white blood cell count on paracentesis. He may have a urinary tract infection. He also has a markedly enlarged scrotum from third spacing. RECOMMENDATIONS: 1. Continue judicious diuresis with Lasix and Aldactone, closely monitoring his BUN and creatinine. 2. Urology evaluation. 3. No further GI workup is planned at this time. Mario Aguilar MD
[2017-04-16] MEDS: Levalbuterol 0.63 MG/3 ML Inhal Soln UD IH SCH ×5 (00:58→19:08)
[2017-04-16 07:36] LABS: BASO # 0.01 K/mm3 (0.0-2.0); BASO % 0.1 % (0.0-3.0); EOS % 0.1 % (1.5-5.0); GRAN % 81.5 % (50.0-68.0); HEMATOCRIT 27.6 % (42.0-52.0); LYMPH # 0.5 (1.2-3.4); LYMPH % 5.5 % (22.0-35.0); MEAN CELL VOLUME 84.4 fl (80.0-105.0); MEAN CORPUSCULAR HEMOGLOBIN 28.4 pg (25.0-35.0); MEAN CORPUSCULAR HGB CONC 33.7 g/dl (31.0-37.0); MEAN PLATELET VOLUME 10.2 fl (7.0-11.0); MONO # 1.1 (0.1-0.6); MONO % 12.8 % (1.0-6.0); PLATELET COUNT 87 10^3/uL (120.0-450.0); RED CELL DISTRIBUTION WIDTH 15.1 % (11.5-14.5); WHITE BLOOD COUNT 8.2 10^3/ul (4.5-11.0)
[2017-04-16 07:43] LABS: ALB/GLOB RATIO 0.5 (1.1-1.8); ALKALINE PHOSPHATASE 113 U/L (38-133); ALT/SGPT 29 U/L (7-56); AST/SGOT 77 U/L (15-59); BILIRUBIN,TOTAL 1.6 mg/dL (0.2-1.3); BLOOD UREA NITROGEN 32 mg/dL (7-21); CALCIUM 7.1 mg/dL (8.4-10.5); CARBON DIOXIDE 23 mmol/L (21-33); CHLORIDE 102 mmol/L (98-107); GFR AFRICAN-AMERICAN > 60; GLUCOSE,RANDOM 70 mg/dL (70-110); MAGNESIUM 2.1 mg/dL (1.7-2.2); PHOSPHOROUS 2.2 mg/dL (2.5-4.5); POTASSIUM 4.2 mmol/L (3.6-5.0); SODIUM 131 mmol/L (132-148); TOTAL PROTEIN 6.4 g/dL (5.8-8.3)
[2017-04-16 10:03] LABS: ANISOCYTOSIS 1+; HYPOCHROMIA 1+; NEUTROPHIL 86 % (50.0-70.0); PLATELET ESTIMATE LOW (NORMAL)
[2017-04-16 10:04] LABS: TOXIC GRANULATION 1+
[2017-04-16] MEDS: cefTRIAXone 1 gm 1 GM/100 ML BAG IVPB SCH (10:29)
--- NOTE | 2017-04-16 11:18 | CP.PCM.PN ---
Subjective - Date & Time of Evaluation Date of Evaluation: 04/16/17 Time of Evaluation: 08:30 - Subjective Subjective: I have seen and examined patient at bedside. Patient is alert however he is oriented to self only. He is not oriented to place or person. As per nursing staff, he constantly wants to get up and walk around. 1:1 started for safety purposes. Denies any complaints as per elevator troubleshooter. He does not appear to be in distress. Refusing to eat breakfast and is waiting for his family. Objective - Vital Signs/Intake and Output Vital Signs (last 24 hours): Temp Pulse Resp BP Pulse Ox 99.1 F 93 H 20 101/57 L 96 04/16/17 06:00 04/16/17 06:00 04/16/17 06:00 04/16/17 06:00 04/16/17 06:00 Intake and Output: 04/16/17 04/16/17 06:59 18:59 Intake Total 180 Output Total 300 Balance -120 - Medications Medications: Current Medications Famotidine (Pepcid) 40 mg PO [facility] Last Admin: 04/15/17 21:00 Dose: 40 mg Furosemide (Lasix) 40 mg IVP DAILY [facility] Last Admin: 04/15/17 14:52 Dose: Not Given Home Med (Home Med) 1 unit PO 2000 [facility] Stop: 04/18/17 20:01 Last Admin: 04/15/17 21:57 Dose: 1 unit Ceftriaxone Sodium (Rocephin 1 Gram Ivpb) 1 gm in 100 mls @ 100 mls/hr IVPB DAILY [facility] PRN Reason: Protocol Last Admin: 04/15/17 14:58 Dose: 100 mls/hr Lactulose (Enulose) 10 gm PO ONCE ONE Stop: 04/16/17 10:27 Levalbuterol HCl (Xopenex) 0.63 mg IH [id number] [facility] Last Admin: 04/16/17 07:49 Dose: 0.63 mg Spironolactone (Aldactone) 50 mg PO BID [facility] Last Admin: 04/15/17 18:20 Dose: 50 mg - Labs Labs: 04/16/17 07:15 04/16/17 07:15 PT 16.4 Seconds (9.9-11.8) H 04/14/17 15:50 INR 1.52 (0.93-1.08) H 04/14/17 15:50 APTT 37.7 Seconds (23.7-30.8) H 04/14/17 15:50 - Constitutional Appears: No Acute Distress - Head Exam Head Exam: ATRAUMATIC, NORMAL INSPECTION, NORMOCEPHALIC - Eye Exam Eye Exam: EOMI, Normal appearance Pupil Exam: PERRL - ENT Exam ENT Exam: Mucous Membranes Moist - Neck Exam Neck Exam: Full ROM, Normal Inspection - Respiratory Exam Respiratory Exam: Decreased Breath Sounds, Rales (at bases) - Cardiovascular Exam Cardiovascular Exam: REGULAR RHYTHM, +S1, +S2 - GI/Abdominal Exam GI & Abdominal Exam: Distended, Soft, Normal Bowel Sounds. absent: Tenderness Additional comments: fluid thrill - Rectal Exam Rectal Exam: Deferred - Exam Exam: Scrotal Swelling Additional comments: Avldez catheter in place - Extremities Exam Extremities Exam: Full ROM, Normal Capillary Refill, Normal Inspection - Back Exam Back Exam: Full ROM, NORMAL INSPECTION. absent: CVA tenderness (L), CVA tenderness (R), paraspinal tenderness, rash noted, tenderness, vertebral tenderness - Neurological Exam Neurological Exam: Alert, Awake. absent: Motor Sensory Deficit, Oriented x3 Neuro motor strength exam: Left Upper Extremity: 5, Right Upper Extremity: 5, Left Lower Extremity: 5, Right Lower Extremity: 5 - Psychiatric Exam Psychiatric exam: Normal Affect, Normal Mood - Skin Skin Exam: Dry, Intact, Pallor, Warm Additional comments: ziegler erythema Assessment and Plan - Assessment and Plan (Free Text) Plan: This is 71 year old Indonesian male with history of hep c induced cirrhosis on Harvoni who was admitted for evaluation of worsening shortness of breath and worsening of abdominal distention and scrotal swelling. Upon admission, he was found to have fever, tachycardia, coagulopathy, transaminitis, urinary retention and lactic acidosis. SBP was suspected. Ascitic fluid was tapped and 3 -4 L were removed. Subsequently he developed hypotension. Albumin was given. 1-Sepsis: Secondary to GNR bacteremia and UTI. Continue Rocephin. He has been afebrile overnight. HR improved. There is no leukocytosis. LA was 4 yesterday. Patient was hypotensive s/p paracentesis which improved with albumin infusion. SBP ruled out. Procal is elevated. Blood and urine culture is positive for GNR. Discussed with ID. 2-Scrotal edema: secondary to dependent edema due to decompensated Cirrhosis. Scrotal US ruled out testicular neoplasm and other inflammatory scrotal conditions. Awaiting urology consult. Patient also has urinary retention and valdez is in place 3-Decompensated cirrhosis secondary to Hep C: Almost completed 12 weeks of Harvoni as per patients son. Patient obtained this medication from [place]. Continue lasix and aldactone if BP tolerated that. There is no portal venous thrombosis. 4-AMS: Patient was oriented x3 for the past 2 days and I met the patient when family was at the bedside. Today electric motor winder helped with the translation and he appears slightly confused. He is very alert though. Ordered ammonia level which was normal yesterday and also ordered one dose of lactulose. 5-Peripheral edema: Improved. Continue diuretics. Echo did not reveal cirrhotic cardiomyopathy. Echo normal. LE duplex negative for DVT. 6-Thrombocytopenia: Most likely due to liver cirrhosis however can be due to consumption coagulopathy secondary to sepsis. 7-Coagulopathy: Due to cirrhosis. No active bleeding. Avoid anticoagulants. 8-Hyponatremia: secondary to inability to excrete free water primarily from high levels of ADH due to cirrhosis. 9-GI prophylaxis: continue pepcid 10--DVT prophylaxis: SCD's. 11-Dispo: Upon discharge patient will follow up with Dr Little.
[2017-04-16 12:12] LABS: GLUCOSE PERITONEAL FLUID 134 mg/dL; LDH PERITONEAL FLUID 32 U/L (<63); TOTAL PROTEIN PERITONEAL FLUID <3.0 g/dL
--- NOTE | 2017-04-16 17:06 | PN ---
DATE: 04/16/2017 SUBJECTIVE: The patient is in bed, in no acute distress, nontoxic, he appears to be comfortable. PHYSICAL EXAMINATION: VITAL SIGNS: Temperature is 98, blood pressure is 101/50, respiratory rate of 20. HEENT: Unremarkable. NECK: Supple. LUNGS: Decreased breath sounds. HEART: Normal S1 and S2. ABDOMEN: Soft and nontender. SCROTUM: With edema. LABORATORY DATA: Reveal the patient's white count of 8.2, hemoglobin of 9, platelets of 87, 86% polys. Chemistries reveal a BUN of 32, creatinine of 1.2, which is up to 1.4. AST is 77. Urinalysis is noted, 10 to 15 wbc's and 25 wbc's noted from the peritoneal fluid, 90% were lymphocytosis. Microbiology reveals a gram-negative lawrence in the blood and gram-negative lawrence in the urine and review of orders reveal the patient to be on ceftriaxone. ASSESSMENT AND PLAN: A 71-year-old male with past medical history of hepatitis C, liver cirrhosis and was treated with Harvoni and now presents with sepsis with gram-negative lawrence bacteremia secondary to gram-negative lawrence in urine and gram-negative lawrence in the blood. We will continue with ceftriaxone pending identification and sensitivity of the gram-negative lawrence in the urine and the blood and Dr. Madera is on consult for and pending his input, we will follow with you. Vasquez Luther MD
[2017-04-16] MEDS: Albuterol-Ipratrop 3 mg / 0.5 (3 ml) UD IH PRN ×2 (18:32→22:05)
[2017-04-16] MEDS: HARVONI PO SCH (21:49)
[2017-04-17] MEDS: Levalbuterol 0.63 MG/3 ML Inhal Soln UD IH SCH ×4 (02:50→20:40)
--- NOTE | 2017-04-17 09:01 | CT ---
PROCEDURE: CT HEAD WITHOUT CONTRAST. HISTORY: AMS COMPARISON: None available. TECHNIQUE: Axial computed tomography images were obtained through the head/brain without intravenous contrast. Radiation dose: Total exam DLP = 725.84 mGy-cm. This CT exam was performed using one or more of the following dose reduction techniques: Automated exposure control, adjustment of the mA and/or kV according to patient size, and/or use of iterative reconstruction technique. FINDINGS: HEMORRHAGE: No intracranial hemorrhage. BRAIN: No mass effect or edema. 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 No evidence of acute infarct. VENTRICLES: Unremarkable. No hydrocephalus. CALVARIUM: Unremarkable. PARANASAL SINUSES: Unremarkable as visualized. No significant inflammatory changes. MASTOID AIR CELLS: Unremarkable as visualized. No inflammatory changes. OTHER FINDINGS: None. IMPRESSION: No evidence of acute infarct. No intracranial mass or hemorrhage. 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
[2017-04-17] MEDS: cefTRIAXone 1 gm 1 GM/100 ML BAG IVPB SCH (10:36)
--- NOTE | 2017-04-17 12:14 | CP.PCM.PN ---
<ANIA RUDOLPH - Last Filed: 04/17/17 11:44> Subjective - Date & Time of Evaluation Date of Evaluation: 04/17/17 Time of Evaluation: 11:44 - Subjective Subjective: MEDICINE PROGRESS NOTE: Pt seen and examined at bedside with family members present and translating. Pt had no new complaints and was eating breakfast when evaluated. He is currently having a difficult time orienting to place and states that he is in the pharmacy when asked where he is. Patients family endorses that his mental status is changed from his baseline. Pt currently denies any headache, fever, chills, shortness of breath, chest pain, abdominal pain, N/V, diarrhea or constipation. Objective - Vital Signs/Intake and Output Vital Signs (last 24 hours): Temp Pulse Resp BP Pulse Ox 98.1 F 97 H 18 105/62 100 04/17/17 06:00 04/17/17 06:00 04/17/17 06:00 04/17/17 06:00 04/17/17 06:00 Intake and Output: 04/17/17 04/17/17 06:59 18:59 Intake Total 520 Output Total 1100 Balance -580 - Medications Medications: Current Medications Albuterol/Ipratropium (Duoneb 3 Mg/0.5 Mg (3 Ml) Ud) 3 ml IH Q2H PRN PRN Reason: Shortness of Breath Last Admin: 04/16/17 22:05 Dose: 3 ml Famotidine (Pepcid) 40 mg PO HS [facility] Last Admin: 04/16/17 21:52 Dose: 40 mg Furosemide (Lasix) 40 mg IVP DAILY [facility] Home Med (Home Med) 1 unit PO 1999 [facility] Stop: 04/18/17 20:01 Last Admin: 04/16/17 21:49 Dose: 1 unit Ceftriaxone Sodium (Rocephin 1 Gram Ivpb) 1 gm in 100 mls @ 100 mls/hr IVPB DAILY [facility] PRN Reason: Protocol Last Admin: 04/17/17 10:36 Dose: 100 mls/hr Levalbuterol HCl (Xopenex) 0.63 mg IH [id number] [facility] Last Admin: 04/17/17 08:18 Dose: 0.63 mg Spironolactone (Aldactone) 50 mg PO BID [facility] Last Admin: 04/17/17 10:36 Dose: 50 mg - Labs Labs: 04/16/17 07:15 04/16/17 07:15 PT 16.4 Seconds (9.9-11.8) H 04/14/17 15:50 INR 1.52 (0.93-1.08) H 04/14/17 15:50 APTT 37.7 Seconds (23.7-30.8) H 04/14/17 15:50 - Constitutional Appears: No Acute Distress - Head Exam Head Exam: ATRAUMATIC, NORMAL INSPECTION, NORMOCEPHALIC - Eye Exam Eye Exam: EOMI, Normal appearance, PERRL - ENT Exam ENT Exam: Mucous Membranes Moist - Neck Exam Neck Exam: Full ROM, Normal Inspection - Respiratory Exam Respiratory Exam: Decreased Breath Sounds, Rales Additional comments: At bases - Cardiovascular Exam Cardiovascular Exam: REGULAR RHYTHM, +S1, +S2 - GI/Abdominal Exam GI & Abdominal Exam: Distended, Soft, Normal Bowel Sounds. absent: Tenderness Additional comments: Fluid thrill - Exam Exam: Scrotal Swelling - Extremities Exam Extremities Exam: Full ROM, Normal Capillary Refill, Normal Inspection. absent : Calf Tenderness, Pedal Edema - Back Exam Back Exam: Full ROM, NORMAL INSPECTION. absent: CVA tenderness (L), CVA tenderness (R), paraspinal tenderness, rash noted, vertebral tenderness - Neurological Exam Neurological Exam: Alert, Awake. absent: Motor Sensory Deficit, Oriented x3 Neuro motor strength exam: Left Upper Extremity: 5, Right Upper Extremity: 5, Left Lower Extremity: 5, Right Lower Extremity: 5 - Psychiatric Exam Psychiatric exam: Normal Affect, Normal Mood - Skin Skin Exam: Dry, Intact, Pallor, Warm Additional comments: Palmar Erythema Assessment and Plan - Assessment and Plan (Free Text) Assessment: This is 71 year old Latvian male with history of hep c induced cirrhosis on Harvoni who was admitted for evaluation of worsening shortness of breath and worsening of abdominal distention and scrotal swelling. Upon admission, he was found to have fever, tachycardia, coagulopathy, transaminitis, urinary retention and lactic acidosis. SBP was suspected. Ascitic fluid was tapped and 3 -4 L were removed. Subsequently he developed hypotension. Albumin was given. Plan: 1. Sepsis -likely secondary to UTI with gram negative lawrence bacteremia with SBP ruled out -currently afebrile, normotensive, with no leukocytosis or tachycardia -continue rocephin (day 3) -blood and urine culture positive for gram negative rods -ID consulted, appreciate all recommendations 2. Scrotal Edema -likely secondary to dependent edema due to decompensated cirrhosis -scrotal US ruled out testicular neoplasm and other inflammatory scrotal conditions -valdez catheter in place for urinary retention -Urology consulted, appreciate all recommendations 3. Decompensated Cirrhosis -secondary to Hepatitis C -completed 12 weeks of harvoni therapy, per family -continue aldactone -holding lasix for uptrending creatinine -GI consulted, appreciate all recommendation 4. AMS -patient became acutely disoriented and agitated on 04/16 and was put on 1-to-1 monitoring and given a dose of lactulose -CT head negative for any acute infarct or bleed -ammonia level wnl -patients son endorsed that his fathers mental status is different from his baseline at todays evaluation -will continue to monitor 5. Peripheral Edema -improving on in physical exam -holding lasix for uptrending creatinine -Echo did not reveal cirrhotic cardiomyopathy and was otherwise normal -LE duplex negative for DVT 6. Thrombocytopenia -likely secondary to liver cirrhosis but also considering consumption coagulopathy secondary to sepsis -platelets at 87 on 04/17 7. Hyponatremia -secondary to high levels of ADH due to cirrhosis -sodium at 131 on 04/17 8. GI/DVT Prophylaxis -Pepcid/scd's Patient seen and case discussed with attending, Dr. Humberto Vines. <Humberto Vines B - Last Filed: 04/18/17 17:20> Objective - Vital Signs/Intake and Output Vital Signs (last 24 hours): Temp Pulse Resp BP Pulse Ox 97.5 F L 73 18 101/62 96 04/18/17 12:00 04/18/17 12:00 04/18/17 12:00 04/18/17 12:04 04/18/17 05:55 Intake and Output: 04/18/17 04/18/17 06:59 18:59 Intake Total 660 120 Output Total 620 1300 Balance 40 -1180 - Medications Medications: Current Medications Albuterol/Ipratropium (Duoneb 3 Mg/0.5 Mg (3 Ml) Ud) 3 ml IH Q2H PRN PRN Reason: Shortness of Breath Last Admin: 04/16/17 22:05 Dose: 3 ml Emollient Ointment (Vaseline Oint) 5 gm TOP Q6H PRN PRN Reason: Dry skin Famotidine (Pepcid) 40 mg PO HS [facility] Last Admin: 04/17/17 21:43 Dose: 40 mg Furosemide (Lasix) 40 mg IVP DAILY [facility] Home Med (Home Med) 1 unit PO 1999 [facility] Stop: 04/18/17 20:01 Last Admin: 04/17/17 21:43 Dose: 1 unit Ceftriaxone Sodium (Rocephin 2 Gm Ivpb) 2 gm in 100 mls @ 100 mls/hr IVPB DAILY [facility] PRN Reason: Protocol Last Admin: 04/18/17 09:15 Dose: 100 mls/hr Levalbuterol HCl (Xopenex) 0.63 mg IH [id number] [facility] Last Admin: 04/18/17 14:17 Dose: 0.63 mg Spironolactone (Aldactone) 50 mg PO BID [facility] Last Admin: 04/18/17 09:16 Dose: 50 mg - Labs Labs: 04/18/17 08:50 04/18/17 08:50 PT 16.4 Seconds (9.9-11.8) H 04/14/17 15:50 INR 1.52 (0.93-1.08) H 04/14/17 15:50 APTT 37.7 Seconds (23.7-30.8) H 04/14/17 15:50 Attending/Attestation - Attestation I have personally seen and examined this patient.: Yes I have fully participated in the care of the patient.: Yes I have reviewed all pertinent clinical information, including history, physical exam and plan: Yes Notes (Text): I have seen and examined the patient at bedside. Agree with the above note with the following additions/ exceptions: Briefly this is 71 year old Latvian male with history of hep c induced cirrhosis on Harvoni who was admitted for evaluation of worsening shortness of breath and worsening of abdominal distention and scrotal swelling. Upon admission, he was found to have sepsis, coagulopathy, transaminitis, urinary retention and lactic acidosis. Ascitic fluid was tapped and 3-4 L were removed. SBP ruled out. Sepsis is secondary to E cloacae bacteremia and UTI which is sensitive to rocephin. He has been afebrile. Urology consult appreciated. Patient also has urinary retention and valdez is in place. Continue lasix and aldactone . There is no portal venous thrombosis. Patient is alert, awake and oriented x3. Patients son is at the bedside. Son reported that patient was confused earlier. CT head ordered. Ammonia level normal. Continue diuretics. Echo normal. LE duplex negative for DVT. Most likely due to liver cirrhosis however can be due to consumption coagulopathy secondary to sepsis. Upon discharge patient will follow up with Dr Little. Dr Humberto Vines
--- NOTE | 2017-04-17 15:43 | PN ---
SUBJECTIVE: The patient is in bed, in no acute distress. PHYSICAL EXAMINATION: VITAL SIGNS: Temperature is 98, blood pressure is 105/60, respiratory rate of 18. HEENT: Unremarkable. NECK: Supple. LUNGS: Decreased breath sounds. HEART: Normal S1 and S2. ABDOMEN: Soft and nontender. LABORATORY DATA: Reveals a white count of 8.2, hemoglobin of 9, platelets of 87, BUN of 32, creatinine of 1.4, and urinalysis is noted and peritoneal fluid is noted. Microbiology reveals Enterobacter cloacae species in the blood and Enterobacter cloacae in the urine. It is pansensitive. It is sensitive to ceftriaxone, which is what the patient is on. The patient had a CAT scan of the head today and no infarct is noted. ASSESSMENT AND PLAN: A 71-year-old male with past medical history of hepatitis C, liver cirrhosis treated with Harvoni, presents with sepsis with Enterobacter cloacae bacteremia secondary to Enterobacter cloacae in the urine, currently on ceftriaxone. Continue the present course. Urology consultation has been requested for Dr. Ricky Navarro. Vasquez Luther MD
[2017-04-17] MEDS: HARVONI PO SCH (21:43)
[2017-04-18] MEDS: Levalbuterol 0.63 MG/3 ML Inhal Soln UD IH SCH ×4 (01:46→20:35)
--- NOTE | 2017-04-18 07:42 | CON ---
DATE: 04/15/2017 CHIEF COMPLAINT: Shortness of breath. HISTORY OF PRESENT ILLNESS: This is a 71-year-old French-speaking male with a history of cirrhosis, hepatitis C, who presented with worsening shortness of breath. A consultation was requested regarding scrotal swelling. The patient is seen with family there to interpret. Family reports the scrotum has been like this for many months and has not been worsening or improving. The patient has abdominal ascites as well and had a recent ascites tap. He currently has a Guajardo catheter in place. He denies any dysuria or gross hematuria. Unclear how many months the Guajardo catheter has been placed for. PAST MEDICAL HISTORY: Significant for cirrhosis and hepatitis C. MEDICATIONS: Include Harvoni, dicyclomine, spironolactone, and Lasix. ALLERGIES: NO KNOWN DRUG ALLERGIES. FAMILY HISTORY: Noncontributory. SOCIAL HISTORY: No smoking or ETOH use. REVIEW OF SYSTEMS: As per the HPI. PHYSICAL EXAMINATION GENERAL: The patient is awake, alert, lying in bed, in no acute distress. He is afebrile. VITAL SIGNS: Temperature 98.5, pulse 83, BP 88/43, and respirations 20. NECK: Supple. There is no adenopathy. CHEST: Revealed a normal inspiratory effort. CARDIAC: Shows positive S1 and S2. ABDOMEN: The abdomen is distended. There is a positive ascitic wave. There is no obvious organomegaly. There is no tenderness. No rebound or guarding. GENITOURINARY: Phallus is hidden in the edema. There is a Guajardo catheter exiting from the urethral meatus, draining clear urine. Scrotum is markedly distended with fluid. This does not appear to be an obvious hydrocele. The testicles are not palpable or are the epididymides. LABORATORY DATA: GFR is greater than 60. Lactic acid is 4.1. Albumin of 2.1. On imaging, the patient had a testicular ultrasound which showed no evidence of torsion or mass, [id number] left-sided hydroceles. Both epididymides are now well-visualized. The patient had an abdominal ultrasound done yesterday, showed moderate ascites. There was competent patent portal vein with hepatopetal flow. IMPRESSION AND PLAN: This is a 71-year-old male with multiple medical issues including ascites and scrotal edema. These do not appear to be hydroceles. The scrotal swelling appears to be related to his ascites, which appears to be due to liver failure and cirrhosis. The plan urologically is to elevate the scrotum on folded towels. The patient should be continued on diuretics and whatever treatment that will reduce the ascites, should reduce the scrotal swelling. There is no evidence of scrotal infection or abscess. I do not recommend any surgical intervention for the scrotal swelling as it should be improved with medical treatment. Paramjit Castro MD
[2017-04-18] MEDS ORDERED: Vancomycin 1gm in NS 250ml 1 GM/250 ML BAG IVPB STA (08:49)
[2017-04-18 08:53] LABS: BASO # 0.07 K/mm3 (0.0-2.0); BASO % 0.9 % (0.0-3.0); EOS # 0.2 (0.0-0.7); EOS % 3.2 % (1.5-5.0); GRAN # 4.43 (1.4-6.5); GRAN % 59.1 % (50.0-68.0); LYMPH # 0.6 (1.2-3.4); LYMPH % 8.4 % (22.0-35.0); MEAN CELL VOLUME 83.6 fl (80.0-105.0); MEAN CORPUSCULAR HEMOGLOBIN 27.8 pg (25.0-35.0); MEAN CORPUSCULAR HGB CONC 33.2 g/dl (31.0-37.0); MEAN PLATELET VOLUME 9.9 fl (7.0-11.0); MONO # 2.1 (0.1-0.6); MONO % 28.4 % (1.0-6.0); PLATELET COUNT 81 10^3/uL (120.0-450.0); RED CELL DISTRIBUTION WIDTH 14.9 % (11.5-14.5); WHITE BLOOD COUNT 7.5 10^3/ul (4.5-11.0)
[2017-04-18] MEDS ORDERED: Barium Sulfate Susp 2.1% w/v, 2.0% w/w 450 mL Bottle PO ONE (08:53)
[2017-04-18 09:07] LABS: ALB/GLOB RATIO 0.5 (1.1-1.8); ALKALINE PHOSPHATASE 143 U/L (38-133); ALT/SGPT 32 U/L (7-56); AST/SGOT 75 U/L (15-59); BILIRUBIN,TOTAL 1.5 mg/dL (0.2-1.3); BLOOD UREA NITROGEN 22 mg/dL (7-21); CALCIUM 7.5 mg/dL (8.4-10.5); CARBON DIOXIDE 27 mmol/L (21-33); CHLORIDE 103 mmol/L (98-107); GFR AFRICAN-AMERICAN > 60; GLUCOSE,RANDOM 105 mg/dL (70-110); MAGNESIUM 1.9 mg/dL (1.7-2.2); PHOSPHOROUS 2.2 mg/dL (2.5-4.5); SODIUM 134 mmol/L (132-148); TOTAL PROTEIN 6.2 g/dL (5.8-8.3)
[2017-04-18] MEDS: cefTRIAXone 2 GM IN NS 2 GM/100 ML BAG IVPB SCH (09:15)
[2017-04-18 09:33] LABS: BAND 2 % (0-2); NEUTROPHIL 70 % (50.0-70.0)
[2017-04-18 09:34] LABS: EOSINOPHIL 2 % (0.0-3.0)
[2017-04-18 09:35] LABS: ANISOCYTOSIS 1+; HYPOCHROMIA 1+; MICROCYTOSIS 1+; PLATELET ESTIMATE LOW (NORMAL); POLYCHROMASIA SLIGHT
[2017-04-18 09:36] LABS: LARGE PLATELETS PRESENT; OVALOCYTES SLIGHT
[2017-04-18] MEDS ORDERED: Iohexol 350 MG/100 ML VIAL ONE (10:48)
[2017-04-18 11:37] LABS: CHOLESTEROL 72 mg/dL (130-200)
[2017-04-18] MEDS ORDERED: Petrolatum Oint Foilpak (5 gm) TOP PRN ×2 (11:49→11:58)
--- NOTE | 2017-04-18 12:21 | CP.PCM.PN ---
<Mary Mccannm - Last Filed: 04/18/17 12:28> Subjective - Date & Time of Evaluation Date of Evaluation: 04/18/17 Time of Evaluation: 09:10 - Subjective Subjective: Raquel Mccann DO, PGY-1, Internal Medicine, Hospitalist Service Patient seen and examined at bedside. Patient had a 102.2 rectal temp last night , tylenol given with relief. Currently afebrile, No complaints this morning. Denies headache, dizziness, cp, sob, abdominal pain, changes in bowel habits. Objective - Vital Signs/Intake and Output Vital Signs (last 24 hours): Temp Pulse Resp BP Pulse Ox 98.1 F 84 18 101/51 L 96 04/18/17 05:55 04/18/17 05:55 04/18/17 05:55 04/18/17 05:55 04/18/17 05:55 Intake and Output: 04/18/17 04/18/17 06:59 18:59 Intake Total 660 Output Total 620 Balance 40 - Medications Medications: Current Medications Albuterol/Ipratropium (Duoneb 3 Mg/0.5 Mg (3 Ml) Ud) 3 ml IH Q2H PRN PRN Reason: Shortness of Breath Last Admin: 04/16/17 22:05 Dose: 3 ml Emollient Ointment (Vaseline Oint) 5 gm TOP Q6H PRN PRN Reason: Dry skin Famotidine (Pepcid) 40 mg PO HS [facility] Last Admin: 04/17/17 21:43 Dose: 40 mg Furosemide (Lasix) 40 mg IVP DAILY [facility] Home Med (Home Med) 1 unit PO 1999 [facility] Stop: 04/18/17 20:01 Last Admin: 04/17/17 21:43 Dose: 1 unit Ceftriaxone Sodium (Rocephin 2 Gm Ivpb) 2 gm in 100 mls @ 100 mls/hr IVPB DAILY [facility] PRN Reason: Protocol Last Admin: 04/18/17 09:15 Dose: 100 mls/hr Levalbuterol HCl (Xopenex) 0.63 mg IH [id number] [facility] Last Admin: 04/18/17 08:10 Dose: 0.63 mg Spironolactone (Aldactone) 50 mg PO BID [facility] Last Admin: 04/18/17 09:16 Dose: 50 mg - Labs Labs: 04/18/17 08:50 04/18/17 08:50 PT 16.4 Seconds (9.9-11.8) H 04/14/17 15:50 INR 1.52 (0.93-1.08) H 04/14/17 15:50 APTT 37.7 Seconds (23.7-30.8) H 04/14/17 15:50 - Constitutional Appears: No Acute Distress - Head Exam Head Exam: ATRAUMATIC, NORMAL INSPECTION - Eye Exam Eye Exam: EOMI, Normal appearance Pupil Exam: NORMAL ACCOMODATION - ENT Exam ENT Exam: Mucous Membranes Moist - Neck Exam Neck Exam: Full ROM - Respiratory Exam Respiratory Exam: Clear to Ausculation Bilateral, NORMAL BREATHING PATTERN. absent: Rales, Rhonchi, Wheezes - Cardiovascular Exam Cardiovascular Exam: REGULAR RHYTHM, +S1, +S2 - GI/Abdominal Exam GI & Abdominal Exam: Distended, Soft, Hypoactive Bowel Sounds. absent: Guarding , Rigid, Tenderness - Exam Exam: Scrotal Swelling Additional comments: +Scrotal edema Valdez Catheter in draining yellow urine - Extremities Exam Extremities Exam: Pedal Edema. 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 Upon admission, he was found to have fever, tachycardia, coagulopathy, transaminitis, urinary retention and lactic acidosis. SBP was suspected. Ascitic fluid was tapped and 3 -4 L were removed. Subsequently he developed hypotension. Albumin was given. Plan: 1. Sepsis likely 2/2 UTI and bacteremia -Urine cx and Blood cx gram negative lawrence; SBP ruled out -Tmax 102.2 (rectal), Tylenol given with relief -Currently afebrile, normotensive, with no leukocytosis or tachycardia -Lactate within normal limits -Continue rocephin (day 4), Vancomycin x 1 dose -CT abd/pelvis ordered to rule out intraabdominal pathology -ID consulted, appreciate all recommendations 2. Scrotal Edema -Likely secondary to dependent edema due to decompensated cirrhosis -Scrotal US ruled out testicular neoplasm and other inflammatory scrotal conditions -Valdez catheter in place for urinary retention -Keep Scrotrum elevated -Urology consulted, appreciate all recommendations 3. Decompensated Cirrhosis -Secondary to Hepatitis C -Completed 12 weeks of harvoni therapy, per family -Continue aldactone -Lasix 40mg IV daily -GI consulted, appreciate all recommendation 4. AMS -Patient became acutely disoriented and agitated on 04/16 and was put on 1-to-1 monitoring and s/p lactulose -CT head negative for any acute infarct or bleed -Ammonia level wnl -Patients son endorsed that his fathers mental status is different from his baseline at todays evaluation -Will continue to monitor 5. Peripheral Edema -Improving on in physical exam -Lasix 40mg IV daily -Echo did not reveal cirrhotic cardiomyopathy and was otherwise normal -LE duplex negative for DVT 6. Thrombocytopenia -Likely secondary to liver cirrhosis but also considering consumption coagulopathy secondary to sepsis -Platelets at 81 on 04/18 7. Hyponatremia -Secondary to high levels of ADH due to cirrhosis -Improving -Sodium at 134 on 04/18 8. GI/DVT Prophylaxis -Pepcid/scd's <Humberto Vines - Last Filed: 04/18/17 15:47> Objective - Vital Signs/Intake and Output Vital Signs (last 24 hours): Temp Pulse Resp BP Pulse Ox 97.5 F L 73 18 101/62 96 04/18/17 12:00 04/18/17 12:00 04/18/17 12:00 04/18/17 12:04 04/18/17 05:55 Intake and Output: 04/18/17 04/18/17 06:59 18:59 Intake Total 660 120 Output Total 620 1300 Balance 40 -1180 - Medications Medications: Current Medications Albuterol/Ipratropium (Duoneb 3 Mg/0.5 Mg (3 Ml) Ud) 3 ml IH Q2H PRN PRN Reason: Shortness of Breath Last Admin: 04/16/17 22:05 Dose: 3 ml Emollient Ointment (Vaseline Oint) 5 gm TOP Q6H PRN PRN Reason: Dry skin Famotidine (Pepcid) 40 mg PO HS [facility] Last Admin: 04/17/17 21:43 Dose: 40 mg Furosemide (Lasix) 40 mg IVP DAILY [facility] Home Med (Home Med) 1 unit PO 1999 [facility] Stop: 04/18/17 20:01 Last Admin: 04/17/17 21:43 Dose: 1 unit Ceftriaxone Sodium (Rocephin 2 Gm Ivpb) 2 gm in 100 mls @ 100 mls/hr IVPB DAILY [facility] PRN Reason: Protocol Last Admin: 04/18/17 09:15 Dose: 100 mls/hr Levalbuterol HCl (Xopenex) 0.63 mg IH [id number] [facility] Last Admin: 04/18/17 14:17 Dose: 0.63 mg Spironolactone (Aldactone) 50 mg PO BID [facility] Last Admin: 04/18/17 09:16 Dose: 50 mg - Labs Labs: 04/18/17 08:50 04/18/17 08:50 PT 16.4 Seconds (9.9-11.8) H 04/14/17 15:50 INR 1.52 (0.93-1.08) H 04/14/17 15:50 APTT 37.7 Seconds (23.7-30.8) H 04/14/17 15:50 Attending/Attestation - Attestation I have personally seen and examined this patient.: Yes I have fully participated in the care of the patient.: Yes I have reviewed all pertinent clinical information, including history, physical exam and plan: Yes Notes (Text): I have seen and examined the patient at bedside. 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 Upon admission, he was found to have sepsis, coagulopathy, transaminitis, urinary retention and lactic acidosis. Ascitic fluid was tapped and 3-4 L were removed. SBP ruled out. Sepsis is secondary to E cloacae bacteremia and UTI which is sensitive to rocephin. He was febrile yesterday. He was given one dose of vanco as well. CT abdomen ordered. Urology consult appreciated. Patient also has urinary retention and valdez is in place. Continue lasix and aldactone . There is no portal venous thrombosis. Patient is alert, awake and oriented x3. CT head did not show any acute changes. Ammonia level normal. Continue diuretics. Echo normal. LE duplex negative for DVT. Most likely due to liver cirrhosis however can be due to consumption coagulopathy secondary to sepsis. Hyponatremia is secondary to inability to excrete free water primarily from high levels of ADH due to cirrhosis. Upon discharge patient will follow up with Dr Little. Dr Humberto Vines
--- NOTE | 2017-04-18 12:41 | CP.PCM.PN ---
Subjective - Date & Time of Evaluation Date of Evaluation: 04/18/17 Time of Evaluation: 10:10 - Subjective Subjective: Patient is comfortable in bed, but had fevers overnight. Objective - Vital Signs/Intake and Output Vital Signs (last 24 hours): Temp Pulse Resp BP Pulse Ox 98.1 F 84 18 101/51 L 96 04/18/17 05:55 04/18/17 05:55 04/18/17 05:55 04/18/17 05:55 04/18/17 05:55 Intake and Output: 04/18/17 04/18/17 06:59 18:59 Intake Total 660 Output Total 620 Balance 40 - Medications Medications: Current Medications Albuterol/Ipratropium (Duoneb 3 Mg/0.5 Mg (3 Ml) Ud) 3 ml IH Q2H PRN PRN Reason: Shortness of Breath Last Admin: 04/16/17 22:05 Dose: 3 ml Famotidine (Pepcid) 40 mg PO HS [facility] Last Admin: 04/17/17 21:43 Dose: 40 mg Furosemide (Lasix) 40 mg IVP DAILY [facility] Home Med (Home Med) 1 unit PO 1999 [facility] Stop: 04/18/17 20:01 Last Admin: 04/17/17 21:43 Dose: 1 unit Ceftriaxone Sodium (Rocephin 2 Gm Ivpb) 2 gm in 100 mls @ 100 mls/hr IVPB DAILY [facility] PRN Reason: Protocol Vancomycin HCl (Vancomycin 1gm) 1 gm in 250 mls @ 167 mls/hr IVPB [facility] PRN Reason: Protocol Stop: 04/18/17 10:18 Levalbuterol HCl (Xopenex) 0.63 mg IH [id number] [facility] Last Admin: 04/18/17 08:10 Dose: 0.63 mg Spironolactone (Aldactone) 50 mg PO BID [facility] Last Admin: 04/17/17 17:49 Dose: 50 mg - Labs Labs: 04/16/17 07:15 04/16/17 07:15 PT 16.4 Seconds (9.9-11.8) H 04/14/17 15:50 INR 1.52 (0.93-1.08) H 04/14/17 15:50 APTT 37.7 Seconds (23.7-30.8) H 08/17/17 15:50 - Constitutional Appears: Non-toxic, No Acute Distress - Head Exam Head Exam: NORMAL INSPECTION - ENT Exam ENT Exam: Mucous Membranes Moist - Neck Exam Neck Exam: absent: Meningismus - Respiratory Exam Respiratory Exam: Decreased Breath Sounds - Cardiovascular Exam Cardiovascular Exam: +S1, +S2 - GI/Abdominal Exam GI & Abdominal Exam: Soft. absent: Tenderness Assessment and Plan - Assessment and Plan (Free Text) Plan: Assessment sepsis due to Enterobacter UTI with bacteremia; new onset fever R/O intra- abdominal infection ascites S/P paracentesis - no evidence of spontaneous bacterial peritonitis since WBC count in the peritoneal fluid is only 25 chronic active hepatitis C with liver cirrhosis on treatment for Hepatitis C with Harvoni Plan will repeat blood and urine cx; will continue Rocephin and give a dose of IV Vancomycin will get CT scan of the abdomen and pelvis will continue to monitor clinically discussed with Dr. Vines
--- NOTE | 2017-04-18 13:21 | CT ---
PROCEDURE: CT Abdomen and Pelvis with contrast HISTORY: rule out intra-abdominal abscess COMPARISON: None. TECHNIQUE: Contrast dose: 100 cc of Omni 350 Radiation dose: Total exam DLP = 2508 mGy-cm. This CT exam was performed using one or more of the following dose reduction techniques: Automated exposure control, adjustment of the mA and/or kV according to patient size, and/or use of iterative reconstruction technique. FINDINGS: LOWER THORAX: Unremarkable. LIVER: There is severe cirrhosis and atrophy of the liver. The liver has an irregular contour. There is normal enhancement of the portal veins and hepatic veins. GALLBLADDER AND BILE DUCTS: Unremarkable. PANCREAS: Unremarkable. No gross lesion or ductal dilatation. SPLEEN: Unremarkable. ADRENALS: Unremarkable. No mass. KIDNEYS AND URETERS: Unremarkable. No hydronephrosis. No solid mass. VASCULATURE: Unremarkable. No aortic aneurysm. BOWEL: Unremarkable. No obstruction. No gross mural thickening. APPENDIX: Normal appendix. PERITONEUM: There is severe ascites the distends the abdomen and fills the pelvis. Fluid also extends into the left scrotum which measures 15 cm in diameter. This is best seen on coronal image 57. There is no evidence of a discrete abscess. There is also a moderate amount of subcutaneous edema LYMPH NODES: Unremarkable. No enlarged lymph nodes. BLADDER: Unremarkable. REPRODUCTIVE: Unremarkable. BONES: Multilevel degenerative changes are seen in the lumbar spine OTHER FINDINGS: None. IMPRESSION: Severe cirrhosis. Severe ascites. Ascites extends into the left scrotum via an inguinal hernia. The scrotum is grossly enlarged measuring 15 cm. No evidence of discrete abscess
[2017-04-18] MEDS ORDERED: Potassium & Sodium Phosphate PO ONE (15:30)
[2017-04-18 18:19] LABS: URINE BILIRUBIN NEGATIVE (NEGATIVE); URINE BLOOD SMALL (NEGATIVE); URINE GLUCOSE (UA) NEGATIVE (NEGATIVE); URINE KETONE NEGATIVE (NEGATIVE); URINE LEUKOCYTE ESTERASE MODERATE Leu/uL (NEGATIVE); URINE PROTEIN NEGATIVE mg/dL (<30 mg/dL); URINE UROBILINOGEN 0.2 E.U./dL (<1 E.U./dL)
[2017-04-18 18:36] LABS: URINE APPEARANCE CLEAR (CLEAR); URINE COLOR YELLOW (YELLOW)
--- NOTE | 2017-04-18 18:46 | PN ---
DATE: 04/18/2017 SUBJECTIVE: The patient is lying in bed comfortable. There is no report of abdominal pain, nausea or vomiting. PHYSICAL EXAMINATION: VITAL SIGNS: Reveal temperature of 98.1, blood pressure 101/51, heart rate of 84. ABDOMEN: Distended with ascites. EXTREMITIES: Show 1+ pedal edema. There is also a large scrotal edema. LABORATORY DATA: Reveal BUN 22, creatinine 0.9, albumin 2.0, AST 75, ALT 32, total bilirubin 1.5, hemoglobin of 9.3. White blood cell count 7.5, platelet count 81,000. Blood and urine cultures are positive for Enterobacter cloacae. IMPRESSION: This is a 71-year-old male with advanced cirrhosis of the liver secondary to hepatitis C with ascites, scrotal edema, Enterobacter sepsis secondary to Enterobacter urinary tract infection, currently on IV antibiotics. The patient did have a large-volume paracentesis which was not suggestive of SPP. RECOMMENDATIONS: Continue IV Lasix 40 mg once a day as well as Aldactone 50 mg b.i.d. Continue IV antibiotics for urosepsis. The patient's long-term prognosis is guarded. Mario Aguilar MD
[2017-04-18 19:10] LABS: URINE BACTERIA SMALL (NEG); URINE EPITHELIAL CELLS 0 - 2 /hpf (0-5)
[2017-04-18] MEDS: HARVONI PO SCH (20:42)
[2017-04-19] MEDS: Levalbuterol 0.63 MG/3 ML Inhal Soln UD IH SCH ×4 (02:05→19:56)
[2017-04-19 07:17] LABS: BASO # 0.17 K/mm3 (0.0-2.0); EOS # 0.3 (0.0-0.7); EOS % 3.7 % (1.5-5.0); GRAN # 4.85 (1.4-6.5); GRAN % 58.2 % (50.0-68.0); HEMATOCRIT 27.5 % (42.0-52.0); LYMPH # 1.4 (1.2-3.4); LYMPH % 16.2 % (22.0-35.0); MEAN CELL VOLUME 82.8 fl (80.0-105.0); MEAN CORPUSCULAR HGB CONC 33.8 g/dl (31.0-37.0); MEAN PLATELET VOLUME 9.5 fl (7.0-11.0); MONO # 1.7 (0.1-0.6); MONO % 19.9 % (1.0-6.0); RED CELL DISTRIBUTION WIDTH 14.9 % (11.5-14.5); WHITE BLOOD COUNT 8.3 10^3/ul (4.5-11.0)
[2017-04-19 07:32] LABS: ALB/GLOB RATIO 0.5 (1.1-1.8); ALKALINE PHOSPHATASE 135 U/L (38-133); ALT/SGPT 35 U/L (7-56); AST/SGOT 77 U/L (15-59); BILIRUBIN,TOTAL 1.4 mg/dL (0.2-1.3); BLOOD UREA NITROGEN 21 mg/dL (7-21); CALCIUM 7.7 mg/dL (8.4-10.5); CARBON DIOXIDE 28 mmol/L (21-33); CHLORIDE 101 mmol/L (98-107); GFR AFRICAN-AMERICAN > 60; GLUCOSE,RANDOM 83 mg/dL (70-110); MAGNESIUM 1.6 mg/dL (1.7-2.2); PHOSPHOROUS 2.4 mg/dL (2.5-4.5); POTASSIUM 4.2 mmol/L (3.6-5.0); SODIUM 135 mmol/L (132-148); TOTAL PROTEIN 6.4 g/dL (5.8-8.3)
[2017-04-19] MEDS ORDERED: Magnesium Sulfate 1 gm in D5W 1 GM/100 ML BAG IVPB ONE (07:50)
[2017-04-19] MEDS: cefTRIAXone 2 GM IN NS 2 GM/100 ML BAG IVPB SCH (09:54)
[2017-04-19 10:01] LABS: INR 1.45 (0.93-1.08); PARTIAL THROMBOPLASTIN TIME 38.5 Seconds (23.7-30.8)
--- NOTE | 2017-04-19 12:16 | CP.PCM.PN ---
Subjective - Date & Time of Evaluation Date of Evaluation: 04/19/17 Time of Evaluation: 10:10 - Subjective Subjective: Comfortable, not in distress, afebrile overnight, no abdominal pain. Objective - Vital Signs/Intake and Output Vital Signs (last 24 hours): Temp Pulse Resp BP Pulse Ox 98.8 F 91 H 18 111/71 94 L 04/19/17 06:00 04/19/17 10:00 04/19/17 06:00 04/19/17 09:05 04/19/17 06:00 Intake and Output: 04/19/17 04/19/17 06:59 18:59 Intake Total 240 Output Total 500 Balance -260 - Medications Medications: Current Medications Albuterol/Ipratropium (Duoneb 3 Mg/0.5 Mg (3 Ml) Ud) 3 ml IH Q2H PRN PRN Reason: Shortness of Breath Last Admin: 04/16/17 22:05 Dose: 3 ml Emollient Ointment (Vaseline Oint) 5 gm TOP Q6H PRN PRN Reason: Dry skin Famotidine (Pepcid) 40 mg PO HS [facility] Last Admin: 04/18/17 21:12 Dose: 40 mg Furosemide (Lasix) 40 mg IVP DAILY [facility] Last Admin: 04/19/17 09:05 Dose: 40 mg Ceftriaxone Sodium (Rocephin 2 Gm Ivpb) 2 gm in 100 mls @ 100 mls/hr IVPB DAILY [facility] PRN Reason: Protocol Last Admin: 04/19/17 09:54 Dose: 100 mls/hr Lactulose (Enulose) 20 gm PO DAILY [facility] PRN Reason: titrate for 2 soft BMs/day Last Admin: 04/19/17 11:45 Dose: 20 gm Levalbuterol HCl (Xopenex) 0.63 mg IH [id number] [facility] Last Admin: 04/19/17 08:24 Dose: 0.63 mg Potassium Phos/Sodium Phos (Neutra-Phos) 3 pkt PO BID [facility] Spironolactone (Aldactone) 50 mg PO BID [facility] Last Admin: 04/19/17 09:05 Dose: 50 mg - Labs Labs: 04/19/17 07:00 04/19/17 07:00 PT 15.7 Seconds (9.9-11.8) H 04/19/17 09:16 INR 1.45 (0.93-1.08) H 04/19/17 09:16 APTT 38.5 Seconds (23.7-30.8) H 04/19/17 09:16 - Constitutional Appears: Non-toxic, No Acute Distress - Head Exam Head Exam: NORMAL INSPECTION - ENT Exam ENT Exam: Mucous Membranes Moist - Neck Exam Neck Exam: absent: Meningismus - Respiratory Exam Respiratory Exam: Decreased Breath Sounds - Cardiovascular Exam Cardiovascular Exam: +S1, +S2 - GI/Abdominal Exam GI & Abdominal Exam: Distended, Soft. absent: Firm, Guarding, Rigid, Tenderness , Rebound Assessment and Plan - Assessment and Plan (Free Text) Plan: Assessment sepsis due to Enterobacter UTI with bacteremia; new onset fever R/O intra- abdominal infection ascites S/P paracentesis - no evidence of spontaneous bacterial peritonitis since WBC count in the peritoneal fluid is only 25 chronic active hepatitis C with liver cirrhosis on treatment for Hepatitis C with Harvoni Plan follow up repeat blood and urine cx from yesterday (negative x 1 day); will continue Rocephin and gave a dose of IV Vancomycin CT scan of the abdomen and pelvis did not show acute pathology will continue to monitor clinically discussed with Dr. Vines previously
--- NOTE | 2017-04-19 15:10 | CP.PCM.PN ---
Subjective - Date & Time of Evaluation Date of Evaluation: 04/19/17 Time of Evaluation: 07:15 - Subjective Subjective: Raquel Mccann DO, PGY-1, Internal Medicine, Hospitalist Service Patient seen and examined at bedside. Per nursing, no acute events overnight. Patient is doing well, no complaints at this time. Denies headaches, dizziness, nausea, vomiting, cp, palpitations, sob, abdominal pain. Per the , patient occasionally gets confused, currently AAOx3. Objective - Vital Signs/Intake and Output Vital Signs (last 24 hours): Temp Pulse Resp BP Pulse Ox 98.6 F 87 19 101/62 94 L 04/19/17 12:00 04/19/17 14:00 04/19/17 12:00 04/19/17 12:00 04/19/17 06:00 Intake and Output: 04/19/17 04/19/17 06:59 18:59 Intake Total 240 Output Total 500 Balance -260 - Medications Medications: Current Medications Albuterol/Ipratropium (Duoneb 3 Mg/0.5 Mg (3 Ml) Ud) 3 ml IH Q2H PRN PRN Reason: Shortness of Breath Last Admin: 04/16/17 22:05 Dose: 3 ml Emollient Ointment (Vaseline Oint) 5 gm TOP Q6H PRN PRN Reason: Dry skin Famotidine (Pepcid) 40 mg PO HS [facility] Last Admin: 04/18/17 21:12 Dose: 40 mg Furosemide (Lasix) 40 mg IVP DAILY [facility] Last Admin: 04/19/17 09:05 Dose: 40 mg Ceftriaxone Sodium (Rocephin 2 Gm Ivpb) 2 gm in 100 mls @ 100 mls/hr IVPB DAILY [facility] PRN Reason: Protocol Last Admin: 04/19/17 09:54 Dose: 100 mls/hr Lactulose (Enulose) 20 gm PO DAILY [facility] PRN Reason: titrate for 2 soft BMs/day Last Admin: 04/19/17 11:45 Dose: 20 gm Levalbuterol HCl (Xopenex) 0.63 mg IH [id number] [facility] Last Admin: 04/19/17 13:57 Dose: 0.63 mg Potassium Phos/Sodium Phos (Neutra-Phos) 3 pkt PO BID [facility] Spironolactone (Aldactone) 50 mg PO BID [facility] Last Admin: 04/19/17 09:05 Dose: 50 mg - Labs Labs: 04/19/17 07:00 04/19/17 07:00 PT 15.7 Seconds (9.9-11.8) H 04/19/17 09:16 INR 1.45 (0.93-1.08) H 04/19/17 09:16 APTT 38.5 Seconds (23.7-30.8) H 04/19/17 09:16 - Constitutional Appears: Non-toxic, No Acute Distress - Head Exam Head Exam: ATRAUMATIC, NORMAL INSPECTION - Eye Exam Eye Exam: EOMI, Normal appearance Pupil Exam: NORMAL ACCOMODATION - ENT Exam ENT Exam: Mucous Membranes Moist, Normal Exam - Neck Exam Neck Exam: Full ROM, Normal Inspection - Respiratory Exam Respiratory Exam: Clear to Ausculation Bilateral, NORMAL BREATHING PATTERN. absent: Rales, Rhonchi, Wheezes - Cardiovascular Exam Cardiovascular Exam: REGULAR RHYTHM, +S1, +S2. absent: Diastolic murmur - GI/Abdominal Exam GI & Abdominal Exam: Distended, Soft. 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 Upon admission, he was found to have fever, tachycardia, coagulopathy, transaminitis, urinary retention and lactic acidosis. SBP was suspected. Ascitic fluid was tapped and 3 -4 L were removed. Subsequently he developed hypotension. Albumin was given. Plan: 1. Sepsis likely 2/2 UTI and bacteremia -Stable, afebrile -Currently normotensive, with no leukocytosis or tachycardia -Urine cx and Blood cx on admission growing gram negative lawrence; SBP ruled out -Repeat blood cx showing no growth x 24 hours; urine cx showing no growth -Continue Rocephin (day 5), s/p Vancomycin x 1 dose -CT abd/pelvis ordered to rule out intraabdominal pathology -ID consulted, appreciate all recommendations 2. Scrotal Edema -Likely secondary to dependent edema due to decompensated cirrhosis -Scrotal US ruled out testicular neoplasm and other inflammatory scrotal conditions -Guajardo catheter in place for urinary retention -Keep Scrotrum elevated -Urology consulted, appreciate all recommendations 3. Decompensated Cirrhosis -Secondary to Hepatitis C -Completed 12 weeks of harvoni therapy, per family -Continue aldactone -Lasix 40mg IV daily -GI consulted, appreciate all recommendation 4. AMS -Currently on 1:1 as patient occasionally becomes confused -CT head negative for any acute infarct or bleed -Ammonia level wnl -Will order Lactulose 20mg every other day, titrate to 2 BMs/day -Will continue to monitor 5. Peripheral Edema -Improving on in physical exam -Lasix 40mg IV daily -Echo did not reveal cirrhotic cardiomyopathy and was otherwise normal -LE duplex negative for DVT 6. Thrombocytopenia -Likely secondary to liver cirrhosis but also considering consumption coagulopathy secondary to sepsis -Platelets at 106 today -Continue to monitor 7. Hyponatremia -Secondary to high levels of ADH due to cirrhosis -Improving -Sodium at 135 on 04/19 8. Hypomagnesemia -Mg repleted -Continue to monitor 9. GI/DVT Prophylaxis -Pepcid -In the setting of thrombocytopenia, will keep patient on SCDs for DVT ppx -Will avoid Heparin at this time
[2017-04-19] MEDS: Potassium & Sodium Phosphate PO SCH (17:20)
[2017-04-19] MEDS: Albuterol-Ipratrop 3 mg / 0.5 (3 ml) UD IH PRN (23:51)
[2017-04-20] MEDS: Levalbuterol 0.63 MG/3 ML Inhal Soln UD IH SCH ×4 (01:21→20:30)
[2017-04-20 07:35] LABS: BASO # 0.12 K/mm3 (0.0-2.0); BASO % 1.7 % (0.0-3.0); EOS # 0.6 (0.0-0.7); EOS % 7.9 % (1.5-5.0); GRAN # 3.94 (1.4-6.5); GRAN % 56.4 % (50.0-68.0); HEMATOCRIT 25.9 % (42.0-52.0); LYMPH # 0.9 (1.2-3.4); LYMPH % 12.9 % (22.0-35.0); MEAN CORPUSCULAR HEMOGLOBIN 27.9 pg (25.0-35.0); MEAN CORPUSCULAR HGB CONC 33.6 g/dl (31.0-37.0); MEAN PLATELET VOLUME 9.3 fl (7.0-11.0); MONO # 1.5 (0.1-0.6); MONO % 21.1 % (1.0-6.0); RED CELL DISTRIBUTION WIDTH 15.3 % (11.5-14.5)
[2017-04-20 07:47] LABS: INR 1.44 (0.93-1.08); PARTIAL THROMBOPLASTIN TIME 37.6 Seconds (23.7-30.8)
[2017-04-20 07:49] LABS: ALB/GLOB RATIO 0.5 (1.1-1.8); ALKALINE PHOSPHATASE 126 U/L (38-133); ALT/SGPT 34 U/L (7-56); AST/SGOT 74 U/L (15-59); BILIRUBIN,TOTAL 1.4 mg/dL (0.2-1.3); BLOOD UREA NITROGEN 21 mg/dL (7-21); CALCIUM 7.8 mg/dL (8.4-10.5); CARBON DIOXIDE 30 mmol/L (21-33); CHLORIDE 102 mmol/L (98-107); GFR AFRICAN-AMERICAN > 60; GLUCOSE,RANDOM 88 mg/dL (70-110); MAGNESIUM 1.7 mg/dL (1.7-2.2); PHOSPHOROUS 2.9 mg/dL (2.5-4.5); POTASSIUM 3.9 mmol/L (3.6-5.0); SODIUM 136 mmol/L (132-148); TOTAL PROTEIN 6.2 g/dL (5.8-8.3)
[2017-04-20] MEDS: cefTRIAXone 2 GM IN NS 2 GM/100 ML BAG IVPB SCH (10:18)
[2017-04-20] MEDS: Potassium & Sodium Phosphate PO SCH ×2 (10:18→17:37)
--- NOTE | 2017-04-20 15:05 | CP.PCM.PN ---
Subjective - Date & Time of Evaluation Date of Evaluation: 04/20/17 Time of Evaluation: 10:10 - Subjective Subjective: Comfortable, not in distress, afebrile, no abdominal pain. Objective - Vital Signs/Intake and Output Vital Signs (last 24 hours): Temp Pulse Resp BP Pulse Ox 98.2 F 90 18 102/60 96 04/20/17 05:50 04/20/17 05:50 04/20/17 05:50 04/20/17 05:50 04/20/17 05:50 Intake and Output: 04/20/17 04/20/17 06:59 18:59 Intake Total 500 Output Total 1500 Balance -1000 - Medications Medications: Current Medications Albuterol/Ipratropium (Duoneb 3 Mg/0.5 Mg (3 Ml) Ud) 3 ml IH Q2H PRN PRN Reason: Shortness of Breath Last Admin: 04/19/17 23:51 Dose: 3 ml Emollient Ointment (Vaseline Oint) 5 gm TOP Q6H PRN PRN Reason: Dry skin Famotidine (Pepcid) 40 mg PO HS [facility] Last Admin: 04/19/17 22:20 Dose: 40 mg Furosemide (Lasix) 40 mg IVP DAILY [facility] Last Admin: 04/19/17 09:05 Dose: 40 mg Ceftriaxone Sodium (Rocephin 2 Gm Ivpb) 2 gm in 100 mls @ 100 mls/hr IVPB DAILY [facility] PRN Reason: Protocol Last Admin: 04/19/17 09:54 Dose: 100 mls/hr Lactulose (Enulose) 20 gm PO DAILY PRN PRN Reason: titrate for 2 soft BMs/day Last Admin: 04/19/17 11:45 Dose: 20 gm Levalbuterol HCl (Xopenex) 0.63 mg IH [id number] [facility] Last Admin: 04/20/17 01:21 Dose: Not Given Potassium Phos/Sodium Phos (Neutra-Phos) 3 pkt PO BID [facility] Last Admin: 04/19/17 17:20 Dose: 3 pkt Spironolactone (Aldactone) 50 mg PO BID [facility] Last Admin: 04/19/17 17:20 Dose: 50 mg - Labs Labs: 04/19/17 07:00 04/19/17 07:00 PT 15.7 Seconds (9.9-11.8) H 04/19/17 09:16 INR 1.45 (0.93-1.08) H 04/19/17 09:16 APTT 38.5 Seconds (23.7-30.8) H 04/19/17 09:16 - Constitutional Appears: Non-toxic, No Acute Distress - Head Exam Head Exam: NORMAL INSPECTION - Neck Exam Neck Exam: absent: Meningismus - Respiratory Exam Respiratory Exam: Decreased Breath Sounds - Cardiovascular Exam Cardiovascular Exam: +S1, +S2 - GI/Abdominal Exam GI & Abdominal Exam: Distended, Guarding, Soft. absent: Rigid, Tenderness, Rebound Assessment and Plan - Assessment and Plan (Free Text) Plan: Assessment sepsis due to Enterobacter UTI with bacteremia; no evidence of intra-abdominal infection ascites S/P paracentesis - no evidence of spontaneous bacterial peritonitis since WBC count in the peritoneal fluid is only 25 chronic active hepatitis C with liver cirrhosis on treatment for Hepatitis C with Harvoni Plan repeat blood and urine cx from 2 days ago are negative; will continue Rocephin ( day 6 of antibiotics) CT scan of the abdomen and pelvis did not show acute pathology will continue to monitor clinically discussed with Dr. Vines previously
--- NOTE | 2017-04-20 15:17 | CP.PCM.PN ---
Subjective - Date & Time of Evaluation Date of Evaluation: 04/20/17 Time of Evaluation: 07:30 - Subjective Subjective: Raquel Mccann DO, PGY-1, Internal Medicine, Hospitalist Service Patient seen and examined at bedside. Per nursing no acute events overnight. Patient is doing well, AAOx3. Offers no complaints at this time. Refusing to wear SCDs. Denies headaches, dizziness, chest pain, palpitations, sob, abdominal pain, urinary symptoms, changes in bowel habits. Objective - Vital Signs/Intake and Output Vital Signs (last 24 hours): Temp Pulse Resp BP Pulse Ox 98 F 84 19 122/69 96 04/20/17 12:00 04/20/17 12:00 04/20/17 12:00 04/20/17 12:00 04/20/17 05:50 Intake and Output: 04/20/17 04/20/17 06:59 18:59 Intake Total 500 Output Total 1500 Balance -1000 - Medications Medications: Current Medications Albuterol/Ipratropium (Duoneb 3 Mg/0.5 Mg (3 Ml) Ud) 3 ml IH Q2H PRN PRN Reason: Shortness of Breath Last Admin: 04/19/17 23:51 Dose: 3 ml Emollient Ointment (Vaseline Oint) 5 gm TOP Q6H PRN PRN Reason: Dry skin Famotidine (Pepcid) 40 mg PO HS [facility] Last Admin: 04/19/17 22:20 Dose: 40 mg Furosemide (Lasix) 40 mg IVP DAILY [facility] Last Admin: 04/20/17 10:17 Dose: 40 mg Furosemide (Lasix) 20 mg IVP ONCE ONE Stop: 04/20/17 18:01 Ceftriaxone Sodium (Rocephin 2 Gm Ivpb) 2 gm in 100 mls @ 100 mls/hr IVPB DAILY [facility] PRN Reason: Protocol Last Admin: 04/20/17 10:18 Dose: 100 mls/hr Lactulose (Enulose) 20 gm PO DAILY PRN PRN Reason: titrate for 2 soft BMs/day Last Admin: 04/19/17 11:45 Dose: 20 gm Levalbuterol HCl (Xopenex) 0.63 mg IH [id number] [facility] Last Admin: 04/20/17 13:31 Dose: 0.63 mg Potassium Phos/Sodium Phos (Neutra-Phos) 3 pkt PO BID [facility] Last Admin: 04/20/17 10:18 Dose: 3 pkt Spironolactone (Aldactone) 50 mg PO BID [facility] Last Admin: 04/20/17 10:17 Dose: 50 mg - Labs Labs: 04/20/17 06:30 04/20/17 06:30 PT 15.5 Seconds (9.9-11.8) H 04/20/17 06:30 INR 1.44 (0.93-1.08) H 04/20/17 06:30 APTT 37.6 Seconds (23.7-30.8) H 04/20/17 06:30 - Constitutional Appears: Well, No Acute Distress - Head Exam Head Exam: ATRAUMATIC, NORMAL INSPECTION - Eye Exam Eye Exam: EOMI, Normal appearance - ENT Exam ENT Exam: Mucous Membranes Moist - Neck Exam Neck Exam: Full ROM - Respiratory Exam Respiratory Exam: Clear to Ausculation Bilateral, Wheezes, NORMAL BREATHING PATTERN. absent: Rales, Rhonchi - Cardiovascular Exam Cardiovascular Exam: REGULAR RHYTHM, +S1, +S2, Murmur - GI/Abdominal Exam GI & Abdominal Exam: Distended, Soft, Normal Bowel Sounds. 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 Upon admission, he was found to have fever, tachycardia, coagulopathy, transaminitis, urinary retention and lactic acidosis. SBP was suspected. Ascitic fluid was tapped and 3 -4 L were removed. Subsequently he developed hypotension. Albumin was given. Plan: 1. Sepsis likely 2/2 UTI and bacteremia -Stable, afebrile -Currently normotensive, with no leukocytosis or tachycardia -Urine cx and Blood cx on admission growing gram negative lawrence; SBP ruled out -Repeat blood cx showing no growth x 48 hours; urine cx showing no growth -Continue Rocephin (day 6), s/p Vancomycin x 1 dose -CT abd/pelvis ordered to rule out intraabdominal pathology -ID consulted, appreciate all recommendations 2. Scrotal Edema -Likely secondary to dependent edema due to decompensated cirrhosis -Scrotal US ruled out testicular neoplasm and other inflammatory scrotal conditions -Guajardo catheter in place for urinary retention -Keep Scrotrum elevated -Urology consulted, appreciate all recommendations 3. Decompensated Cirrhosis -Secondary to Hepatitis C -Completed 12 weeks of harvoni therapy, per family -Continue Aldactone 50mg BID -Lasix 40mg IV daily -Will give additional Lasix 20mg IV this evening -GI consulted, appreciate all recommendation 4. AMS -Currently on 1:1 as patient occasionally becomes confused -CT head negative for any acute infarct or bleed -Ammonia level wnl -Continue lactulose, titrate to 2 BMs/day -Will continue to monitor 5. Peripheral Edema -Improving on in physical exam -Lasix 40mg IV daily -Echo did not reveal cirrhotic cardiomyopathy and was otherwise normal -LE duplex negative for DVT 6. Thrombocytopenia -Likely secondary to liver cirrhosis but also considering consumption coagulopathy secondary to sepsis -Platelets at 106 today -Continue to monitor 7. Hyponatremia -Secondary to high levels of ADH due to cirrhosis -Improving -Sodium at 136 on 04/19 8. Hypomagnesemia -Continue to monitor 9. GI/DVT Prophylaxis -Pepcid daily -In the setting of thrombocytopenia, will keep patient on SCDs for DVT ppx -Will avoid Heparin at this time
[2017-04-21] MEDS: Levalbuterol 0.63 MG/3 ML Inhal Soln UD IH SCH ×4 (01:36→20:52)
[2017-04-21 07:20] LABS: BASO # 0.1 K/mm3 (0.0-2.0); BASO % 1.4 % (0.0-3.0); EOS # 0.6 (0.0-0.7); EOS % 7.8 % (1.5-5.0); GRAN # 4.65 (1.4-6.5); GRAN % 63.9 % (50.0-68.0); HEMATOCRIT 26.1 % (42.0-52.0); LYMPH % 13.6 % (22.0-35.0); MEAN CELL VOLUME 83.7 fl (80.0-105.0); MEAN CORPUSCULAR HEMOGLOBIN 28.2 pg (25.0-35.0); MEAN CORPUSCULAR HGB CONC 33.7 g/dl (31.0-37.0); MEAN PLATELET VOLUME 9.1 fl (7.0-11.0); MONO % 13.3 % (1.0-6.0); RED CELL DISTRIBUTION WIDTH 15.5 % (11.5-14.5); WHITE BLOOD COUNT 7.3 10^3/ul (4.5-11.0)
[2017-04-21 07:33] LABS: ALB/GLOB RATIO 0.5 (1.1-1.8); ALKALINE PHOSPHATASE 138 U/L (38-133); ALT/SGPT 33 U/L (7-56); AST/SGOT 71 U/L (15-59); BILIRUBIN,TOTAL 1.4 mg/dL (0.2-1.3); BLOOD UREA NITROGEN 19 mg/dL (7-21); CALCIUM 7.9 mg/dL (8.4-10.5); CARBON DIOXIDE 31 mmol/L (21-33); CHLORIDE 100 mmol/L (98-107); GFR AFRICAN-AMERICAN > 60; GLUCOSE,RANDOM 79 mg/dL (70-110); MAGNESIUM 1.5 mg/dL (1.7-2.2); PHOSPHOROUS 3.7 mg/dL (2.5-4.5); POTASSIUM 4.4 mmol/L (3.6-5.0); SODIUM 136 mmol/L (132-148); TOTAL PROTEIN 6.6 g/dL (5.8-8.3)
[2017-04-21 07:40] LABS: INR 1.45 (0.93-1.08); PARTIAL THROMBOPLASTIN TIME 36.3 Seconds (23.7-30.8)
[2017-04-21] MEDS ORDERED: Magnesium Sulfate 2 GM in Sodium Chloride 0.9% 100 ML IVPB ONE (08:56)
[2017-04-21] MEDS: Potassium & Sodium Phosphate PO SCH ×2 (09:34→17:29)
[2017-04-21] MEDS: cefTRIAXone 2 GM IN NS 2 GM/100 ML BAG IVPB SCH (09:35)
--- NOTE | 2017-04-21 10:25 | CP.PCM.PN ---
Subjective - Date & Time of Evaluation Date of Evaluation: 04/21/17 Time of Evaluation: 08:55 - Subjective Subjective: Comfortable in bed, not in distress, afebrile. Objective - Vital Signs/Intake and Output Vital Signs (last 24 hours): Temp Pulse Resp BP Pulse Ox 99.1 F 74 19 100/59 L 96 04/21/17 00:01 04/21/17 02:00 04/21/17 00:01 04/21/17 00:01 04/20/17 05:50 Intake and Output: 04/20/17 04/21/17 18:59 06:59 Intake Total 180 Output Total 250 Balance -70 - Medications Medications: Current Medications Albuterol/Ipratropium (Duoneb 3 Mg/0.5 Mg (3 Ml) Ud) 3 ml IH Q2H PRN PRN Reason: Shortness of Breath Last Admin: 04/19/17 23:51 Dose: 3 ml Emollient Ointment (Vaseline Oint) 5 gm TOP Q6H PRN PRN Reason: Dry skin Famotidine (Pepcid) 40 mg PO HS [facility] Last Admin: 04/20/17 21:28 Dose: 40 mg Furosemide (Lasix) 40 mg IVP DAILY [facility] Last Admin: 04/20/17 10:17 Dose: 40 mg Ceftriaxone Sodium (Rocephin 2 Gm Ivpb) 2 gm in 100 mls @ 100 mls/hr IVPB DAILY [facility] PRN Reason: Protocol Last Admin: 04/20/17 10:18 Dose: 100 mls/hr Lactulose (Enulose) 20 gm PO DAILY PRN PRN Reason: titrate for 2 soft BMs/day Last Admin: 04/19/17 11:45 Dose: 20 gm Levalbuterol HCl (Xopenex) 0.63 mg IH [id number] [facility] Last Admin: 04/21/17 01:36 Dose: Not Given Potassium Phos/Sodium Phos (Neutra-Phos) 3 pkt PO BID [facility] Last Admin: 04/20/17 17:37 Dose: 3 pkt Spironolactone (Aldactone) 50 mg PO BID [facility] Last Admin: 04/20/17 17:37 Dose: 50 mg - Labs Labs: 04/20/17 06:30 04/20/17 06:30 PT 15.5 Seconds (9.9-11.8) H 04/20/17 06:30 INR 1.44 (0.93-1.08) H 04/20/17 06:30 APTT 37.6 Seconds (23.7-30.8) H 04/20/17 06:30 - Constitutional Appears: Non-toxic, No Acute Distress - Head Exam Head Exam: NORMAL INSPECTION - ENT Exam ENT Exam: Mucous Membranes Moist - Neck Exam Neck Exam: absent: Lymphadenopathy, Meningismus - Respiratory Exam Respiratory Exam: Decreased Breath Sounds - Cardiovascular Exam Cardiovascular Exam: +S1, +S2 - GI/Abdominal Exam GI & Abdominal Exam: Soft. absent: Tenderness Assessment and Plan - Assessment and Plan (Free Text) Plan: Assessment sepsis due to Enterobacter UTI with bacteremia; no evidence of intra-abdominal infection ascites S/P paracentesis - no evidence of spontaneous bacterial peritonitis since WBC count in the peritoneal fluid is only 25 chronic active hepatitis C with liver cirrhosis on treatment for Hepatitis C with Harvoni Plan repeat blood and urine cx from 3 days ago are negative; will continue Rocephin ( day 7 of antibiotics) - target 10-14 days of antibiotics - can switch to PO Ciprofloxacin or Levaquin when ready for discharge to complete therapy CT scan of the abdomen and pelvis did not show acute pathology will continue to monitor clinically discussed with Dr. Vines previously
--- NOTE | 2017-04-21 14:49 | CP.PCM.PN ---
<Raquel Mccann - Last Filed: 04/21/17 16:34> Subjective - Date & Time of Evaluation Date of Evaluation: 04/21/17 Time of Evaluation: 07:50 - Subjective Subjective: Raquel Mccann DO, PGY-1, Internal Medicine, Hospitalist Service Patient seen and examined at bedside. Per nursing, no acute events overnight. Patient is doing well, offers no complaints at this time. SOB improving. Denies headaches, dizziness, cp, palpitations, abdominal pain, urinary symptoms, changes in bowel habit. Objective - Vital Signs/Intake and Output Vital Signs (last 24 hours): Temp Pulse Resp BP Pulse Ox 98.7 F 83 21 113/73 96 04/21/17 12:00 04/21/17 12:00 04/21/17 12:00 04/21/17 12:00 04/21/17 06:00 Intake and Output: 04/21/17 04/21/17 06:59 18:59 Intake Total 280 1100 Output Total 250 2854 Balance 30 -1754 - Medications Medications: Current Medications Albuterol/Ipratropium (Duoneb 3 Mg/0.5 Mg (3 Ml) Ud) 3 ml IH Q2H PRN PRN Reason: Shortness of Breath Last Admin: 04/19/17 23:51 Dose: 3 ml Emollient Ointment (Vaseline Oint) 5 gm TOP Q6H PRN PRN Reason: Dry skin Famotidine (Pepcid) 40 mg PO HS [facility] Last Admin: 04/20/17 21:28 Dose: 40 mg Furosemide (Lasix) 40 mg IVP Q12 [facility] Ceftriaxone Sodium (Rocephin 2 Gm Ivpb) 2 gm in 100 mls @ 100 mls/hr IVPB DAILY [facility] PRN Reason: Protocol Last Admin: 04/21/17 09:35 Dose: 100 mls/hr Lactulose (Enulose) 20 gm PO DAILY PRN PRN Reason: titrate for 2 soft BMs/day Last Admin: 04/21/17 07:11 Dose: 20 gm Levalbuterol HCl (Xopenex) 0.63 mg IH [id number] [facility] Last Admin: 04/21/17 14:04 Dose: 0.63 mg Potassium Phos/Sodium Phos (Neutra-Phos) 3 pkt PO BID [facility] Last Admin: 04/21/17 09:34 Dose: 3 pkt Spironolactone (Aldactone) 50 mg PO BID [facility] Last Admin: 04/21/17 09:34 Dose: 50 mg - Labs Labs: 04/21/17 06:30 04/21/17 06:30 PT 15.7 Seconds (9.9-11.8) H 04/21/17 06:30 INR 1.45 (0.93-1.08) H 04/21/17 06:30 APTT 36.3 Seconds (23.7-30.8) H 04/21/17 06:30 - Constitutional Appears: No Acute Distress - Head Exam Head Exam: ATRAUMATIC, NORMAL INSPECTION - Eye Exam Eye Exam: EOMI, Normal appearance Pupil Exam: NORMAL ACCOMODATION - ENT Exam ENT Exam: Mucous Membranes Moist - Neck Exam Neck Exam: Full ROM - Respiratory Exam Respiratory Exam: Clear to Ausculation Bilateral, NORMAL BREATHING PATTERN. absent: Rales, Rhonchi, Wheezes - Cardiovascular Exam Cardiovascular Exam: REGULAR RHYTHM, +S1, +S2, Murmur - GI/Abdominal Exam GI & Abdominal Exam: Distended, Soft, Normal Bowel Sounds. absent: Guarding, Rigid, Tenderness - Rectal Exam Rectal Exam: Deferred - Extremities Exam Extremities Exam: Normal Capillary Refill, Normal Inspection. 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 Upon admission, he was found to have fever, tachycardia, coagulopathy, transaminitis, urinary retention and lactic acidosis. SBP was suspected. Ascitic fluid was tapped and 3 -4 L were removed. Subsequently he developed hypotension. Albumin was given. Plan: 1. Sepsis likely 2/2 UTI and bacteremia -Stable, afebrile -Currently normotensive, with no leukocytosis or tachycardia -Urine cx and Blood cx on admission growing gram negative lawrence; SBP ruled out -Repeat blood cx showing no growth x 3 days; urine cx showing no growth -Continue Rocephin (day 7), s/p Vancomycin x 1 dose -CT abd/pelvis did not show acute pathology -ID consulted, appreciate all recommendations 2. Scrotal Edema -Secondary to ascites -Scrotal US ruled out testicular neoplasm and other inflammatory scrotal conditions -Will discontinue valdez, f/u voiding trial -Keep Scrotrum elevated -Continue diuresis -Urology consulted, appreciate all recommendations 3. Decompensated Cirrhosis -Secondary to Hepatitis C -Completed 12 weeks of harvoni therapy, per family -Continue Aldactone 50mg BID -Lasix 40mg IV BID -GI consulted, appreciate all recommendation 4. AMS -Currently on 1:1 as patient occasionally becomes confused -CT head negative for any acute infarct or bleed -Ammonia level wnl -Continue lactulose, titrate to 2 BMs/day -Will continue to monitor 5. Peripheral Edema -Improving on in physical exam -Lasix 40mg IV BID -LE duplex negative for DVT 6. Thrombocytopenia -Likely secondary to liver cirrhosis but also considering consumption coagulopathy secondary to sepsis -Platelets at 126 today -Continue to monitor 7. Hyponatremia -Secondary to high levels of ADH due to cirrhosis -Improving -Sodium at 136 on 04/21 8. Hypomagnesemia -Continue to monitor 9. GI/DVT Prophylaxis -Pepcid daily -In the setting of thrombocytopenia, will keep patient on SCDs for DVT ppx -Will avoid Heparin at this time <Humberto Vines - Last Filed: 04/21/17 17:40> Objective - Vital Signs/Intake and Output Vital Signs (last 24 hours): Temp Pulse Resp BP Pulse Ox 98.1 F 77 18 109/77 100 04/21/17 16:00 04/21/17 16:00 04/21/17 16:00 04/21/17 16:00 04/21/17 16:00 Intake and Output: 04/21/17 04/21/17 06:59 18:59 Intake Total 280 1460 Output Total 250 3894 Balance 30 -2434 - Medications Medications: Current Medications Albuterol/Ipratropium (Duoneb 3 Mg/0.5 Mg (3 Ml) Ud) 3 ml IH Q2H PRN PRN Reason: Shortness of Breath Last Admin: 04/19/17 23:51 Dose: 3 ml Emollient Ointment (Vaseline Oint) 5 gm TOP Q6H PRN PRN Reason: Dry skin Famotidine (Pepcid) 40 mg PO HS [facility] Last Admin: 04/20/17 21:28 Dose: 40 mg Furosemide (Lasix) 40 mg IVP Q12 [facility] Ceftriaxone Sodium (Rocephin 2 Gm Ivpb) 2 gm in 100 mls @ 100 mls/hr IVPB DAILY [facility] PRN Reason: Protocol Last Admin: 04/21/17 09:35 Dose: 100 mls/hr Lactulose (Enulose) 20 gm PO DAILY PRN PRN Reason: titrate for 2 soft BMs/day Last Admin: 04/21/17 07:11 Dose: 20 gm Levalbuterol HCl (Xopenex) 0.63 mg IH [id number] [facility] Last Admin: 04/21/17 14:04 Dose: 0.63 mg Potassium Phos/Sodium Phos (Neutra-Phos) 3 pkt PO BID [facility] Last Admin: 04/21/17 17:29 Dose: 3 pkt Spironolactone (Aldactone) 50 mg PO BID [facility] Last Admin: 04/21/17 17:29 Dose: 50 mg - Labs Labs: 04/21/17 06:30 04/21/17 06:30 PT 15.7 Seconds (9.9-11.8) H 04/21/17 06:30 INR 1.45 (0.93-1.08) H 04/21/17 06:30 APTT 36.3 Seconds (23.7-30.8) H 04/21/17 06:30 Attending/Attestation - Attestation I have personally seen and examined this patient.: Yes I have fully participated in the care of the patient.: Yes I have reviewed all pertinent clinical information, including history, physical exam and plan: Yes Notes (Text): I have seen and examined the patient at bedside. 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 Upon admission, he was found to have sepsis, coagulopathy, transaminitis, urinary retention and lactic acidosis. Ascitic fluid was tapped and 3-4 L were removed. SBP ruled out. Sepsis is secondary to E cloacae bacteremia and UTI which is sensitive to rocephin. Repeat cultures are all negative. Urology consult appreciated. Patient also had urinary retention and valdez is in place. Increase lasix and continue aldactone . There is no portal venous thrombosis. Will discontinue valdez today. Patient is alert, awake and oriented x3. CT head did not show any acute changes. Ammonia level normal. Continue diuretics. Echo normal. LE duplex negative for DVT. Upon discharge patient will follow up with Dr Little. Dr Humberto Vines
[2017-04-22] MEDS: Levalbuterol 0.63 MG/3 ML Inhal Soln UD IH SCH ×3 (02:24→13:20)
[2017-04-22 08:05] LABS: BASO # 0.08 K/mm3 (0.0-2.0); BASO % 1.2 % (0.0-3.0); EOS # 0.5 (0.0-0.7); EOS % 6.8 % (1.5-5.0); GRAN # 4.41 (1.4-6.5); GRAN % 66.1 % (50.0-68.0); HEMATOCRIT 28.4 % (42.0-52.0); LYMPH # 0.9 (1.2-3.4); LYMPH % 13.4 % (22.0-35.0); MEAN CELL VOLUME 84.5 fl (80.0-105.0); MEAN CORPUSCULAR HGB CONC 33.1 g/dl (31.0-37.0); MEAN PLATELET VOLUME 8.9 fl (7.0-11.0); MONO # 0.8 (0.1-0.6); MONO % 12.5 % (1.0-6.0); RED CELL DISTRIBUTION WIDTH 15.5 % (11.5-14.5); WHITE BLOOD COUNT 6.7 10^3/ul (4.5-11.0)
[2017-04-22 08:11] LABS: ALB/GLOB RATIO 0.5 (1.1-1.8); ALKALINE PHOSPHATASE 135 U/L (38-133); ALT/SGPT 28 U/L (7-56); AST/SGOT 91 U/L (15-59); BILIRUBIN,TOTAL 1.7 mg/dL (0.2-1.3); BLOOD UREA NITROGEN 17 mg/dL (7-21); CALCIUM 8.1 mg/dL (8.4-10.5); CARBON DIOXIDE 34 mmol/L (21-33); CHLORIDE 98 mmol/L (98-107); GFR AFRICAN-AMERICAN > 60; GLUCOSE,RANDOM 78 mg/dL (70-110); MAGNESIUM 1.6 mg/dL (1.7-2.2); POTASSIUM 4.3 mmol/L (3.6-5.0); SODIUM 134 mmol/L (132-148); TOTAL PROTEIN 7.1 g/dL (5.8-8.3)
[2017-04-22 08:32] VITALS: PULSE 81; RESP 21; TEMP 98.2; O2SAT 95
[2017-04-22] MEDS ORDERED: Magnesium Sulfate 2 GM in Sodium Chloride 0.9% 100 ML IVPB ONE (09:35)
[2017-04-22] MEDS: Potassium & Sodium Phosphate PO SCH (09:49)
[2017-04-22 09:55] VITALS: BP 110/63
--- NOTE | 2017-04-22 11:20 | CP.PCM.DIS ---
<Raquel Mccann - Last Filed: 04/22/17 17:26> Provider - Provider Date of Admission: 04/14/17 17:18 Attending physician: Humberto Vines MD Primary care physician: Franky Rosario MD Consults: GI: Dr Aguilar ID: Dr Giron Urology: Dr. Navarro Time Spent in preparation of Discharge (in minutes): 33 Hospital Course - Lab Results Lab Results: Micro Results 04/18/17 09:36 Blood-Venous Blood Culture - Preliminary NO GROWTH AFTER 4 DAYS 04/18/17 09:36 Blood-Venous Blood Culture - Preliminary NO GROWTH AFTER 4 DAYS 04/14/17 18:07 Peritoneal Fluid Gram Stain - Final 04/14/17 18:07 Peritoneal Fluid Body Fluid Culture - Final No growth. 04/18/17 18:00 Urine,Valdez Urine Culture - Final No Growth (<1,000 CFU/ML) 04/15/17 09:08 Urine Urine Culture - Final Enterobacter Cloacae Ssp Cloac Most Recent Lab Values WBC 6.7 10^3/ul (4.5-11.0) 04/22/17 07:30 RBC 3.36 10^6/uL (3.5-6.1) L 04/22/17 07:30 Hgb 9.4 g/dL (14.0-18.0) L 04/22/17 07:30 Hct 28.4 % (42.0-52.0) L 04/22/17 07:30 MCV 84.5 fl (80.0-105.0) 04/22/17 07:30 MCH 28.0 pg (25.0-35.0) 04/22/17 07:30 MCHC 33.1 g/dl (31.0-37.0) 04/22/17 07:30 RDW 15.5 % (11.5-14.5) H 04/22/17 07:30 Plt Count 159 10^3/uL (120.0-450.0) 04/22/17 07:30 MPV 8.9 fl (7.0-11.0) 04/22/17 07:30 Gran % 66.1 % (50.0-68.0) 04/22/17 07:30 Lymph % (Auto) 13.4 % (22.0-35.0) L 04/22/17 07:30 [place] % (Auto) 12.5 % (1.0-6.0) H 04/22/17 07:30 Eos % (Auto) 6.8 % (1.5-5.0) H 04/22/17 07:30 Baso % (Auto) 1.2 % (0.0-3.0) 04/22/17 07:30 Gran # 4.41 (1.4-6.5) 04/22/17 07:30 Lymph # 0.9 (1.2-3.4) L 04/22/17 07:30 [place] # 0.8 (0.1-0.6) H 04/22/17 07:30 Eos # 0.5 (0.0-0.7) 04/22/17 07:30 Baso # 0.08 K/mm3 (0.0-2.0) 04/22/17 07:30 Neutrophils % (Manual) 70 % (50.0-70.0) 04/18/17 08:50 Band Neutrophils % 2 % (0-2) 04/18/17 08:50 Lymphocytes % (Manual) 13 % (22.0-35.0) L 04/18/17 08:50 Monocytes % (Manual) 13 % (1.0-6.0) H 04/18/17 08:50 Eosinophils % (Manual) 2 % (0.0-3.0) 04/18/17 08:50 Toxic Granulation 1+ 04/16/17 07:15 Platelet Evaluation Low (NORMAL) 04/18/17 08:50 Large Platelets Present 04/18/17 08:50 Polychromasia Slight 04/18/17 08:50 Hypochromasia 1+ 04/18/17 08:50 Anisocytosis (manual) 1+ 04/18/17 08:50 Microcytosis (manual) 1+ 04/18/17 08:50 Ovalocytes Slight 04/18/17 08:50 PT 15.7 Seconds (9.9-11.8) H 04/21/17 06:30 INR 1.45 (0.93-1.08) H 04/21/17 06:30 APTT 36.3 Seconds (23.7-30.8) H 04/21/17 06:30 pO2 108 mm/Hg (30-55) H 04/14/17 19:10 VBG pH 7.44 (7.32-7.43) H 04/14/17 19:10 VBG pCO2 41.0 (40-60) 04/14/17 19:10 VBG HCO3 27.8 mmol/l (21-28) 04/14/17 19:10 VBG Total CO2 29.1 mmol.L (22-28) H 04/14/17 19:10 VBG O2 Sat (Calc) 99.2 % (40-65) H 04/14/17 19:10 VBG Base Excess 3.3 mmol/L (0.0-2.0) H 04/14/17 19:10 VBG Potassium 3.8 mmol/L (3.6-5.2) 04/14/17 19:10 Sodium 131.0 mmol/L (132-148) L 04/14/17 19:10 Chloride 103.0 mmol/L (98-107) 04/14/17 19:10 Glucose 98 mg/dl (75-110) 04/14/17 19:10 Lactate 1.7 mmol/L (0.7-2.1) 04/14/17 19:10 FiO2 21.0 % 04/14/17 19:10 Sodium 134 mmol/L (132-148) 04/22/17 07:30 Potassium 4.3 mmol/L (3.6-5.0) 04/22/17 07:30 Chloride 98 mmol/L (98-107) 04/22/17 07:30 Carbon Dioxide 34 mmol/L (21-33) H 04/22/17 07:30 Anion Gap 6 (10-20) L 04/22/17 07:30 BUN 17 mg/dL (7-21) 04/22/17 07:30 Creatinine 0.9 mg/dL (0.5-1.4) 04/22/17 07:30 Est GFR ( Amer) > 60 04/22/17 07:30 Est GFR (Non-Af Amer) > 60 04/22/17 07:30 Random Glucose 78 mg/dL (70-110) 04/22/17 07:30 Lactic Acid 1.1 mmol/L (0.7-2.1) 04/18/17 08:50 Calcium 8.1 mg/dL (8.4-10.5) L 04/22/17 07:30 Phosphorus 4.0 mg/dL (2.5-4.5) 04/22/17 07:30 Magnesium 1.6 mg/dL (1.7-2.2) L 04/22/17 07:30 Total Bilirubin 1.7 mg/dL (0.2-1.3) H 04/22/17 07:30 AST 91 U/L (15-59) H 04/22/17 07:30 ALT 28 U/L (7-56) 04/22/17 07:30 Alkaline Phosphatase 135 U/L (38-133) H 04/22/17 07:30 Ammonia 33 umol/L (9-33) 04/16/17 12:40 Lactate Dehydrogenase 574 U/L (333-699) 04/14/17 15:50 Total Creatine Kinase 276 U/L (35-230) H 04/14/17 15:50 CK-MB (CK-2) < 0.2 ng/mL (0.0-3.6) 04/14/17 15:50 CK-MB (CK-2) % Cancelled 04/14/17 15:50 Troponin I 0.03 ng/mL 04/14/17 15:50 Total Protein 7.1 g/dL (5.8-8.3) 04/22/17 07:30 Albumin 2.3 g/dL (3.0-4.8) L 04/22/17 07:30 Globulin 4.9 gm/dL 04/22/17 07:30 Albumin/Globulin Ratio 0.5 (1.1-1.8) L 04/22/17 07:30 Triglycerides 94 mg/dL (35-160) 04/18/17 11:14 Cholesterol 72 mg/dL (130-200) L 04/18/17 11:14 LDL Cholesterol Direct 39 mg/dL (0-129) 04/18/17 11:14 HDL Cholesterol 9 mg/dL (29-60) L 04/18/17 11:14 Lipase 180 U/L (23-300) 04/14/17 15:50 Procalcitonin 1.52 NG/ML (0.19-0.49) H 04/18/17 09:09 Venous Blood Potassium 3.8 mmol/L (3.6-5.2) 04/14/17 19:10 Urine Color Yellow (YELLOW) 04/18/17 18:00 Urine Appearance Clear (CLEAR) 04/18/17 18:00 Urine pH 6.0 (4.7-8.0) 04/18/17 18:00 Ur Specific [place] 1.010 (1.005-1.035) 04/18/17 18:00 Urine Protein Negative mg/dL (<30 mg/dL) 04/18/17 18:00 Urine Glucose (UA) Negative mg/dL (NEGATIVE) 04/18/17 18:00 Urine Ketones Negative mg/dL (NEGATIVE) 04/18/17 18:00 Urine Blood Small (NEGATIVE) H 04/18/17 18:00 Urine Nitrate Negative (NEGATIVE) 04/18/17 18:00 Urine Bilirubin Negative (NEGATIVE) 04/18/17 18:00 Urine Urobilinogen 0.2 E.U./dL (<1 E.U./dL) 04/18/17 18:00 Ur Leukocyte Esterase Moderate Stacie/uL (NEGATIVE) H 04/18/17 18:00 Urine RBC 5 - 10 /hpf (0-2) 04/18/17 18:00 Urine WBC 2 - 5 /hpf (0-6) 04/18/17 18:00 Ur Epithelial Cells 0 - 2 /hpf (0-5) 04/18/17 18:00 Urine Bacteria Small (NEG) 04/18/17 18:00 Fluid Source Peritoneal 04/14/17 18:07 Fluid Appearance Clear (CLEAR) 04/14/17 18:07 Fluid WBC 25.3 /uL (0.0-300.0) 04/14/17 18:07 Fluid RBC 26.4 /uL (0.0-0.0) H 04/14/17 18:07 Fluid Tot Cell Count 100 (0-0) H 04/14/17 18:07 Fluid Neutrophils 1.0 % (0-0) H 04/14/17 18:07 Fluid Lymphocytes 90.0 % (0-0) H 04/14/17 18:07 Fld Monocyte/Macrophag 9 % (0-0) H 04/14/17 18:07 Fluid Comment Yellow 04/14/17 18:07 Peritoneal Tot Protein <3.0 g/dL 04/14/17 18:07 Peritoneal LDH 32 U/L (<63) 04/14/17 18:07 Peritoneal Glucose 134 mg/dL 04/14/17 18:07 Peritoneal Lipase 5.0 U/L (<10) 04/14/17 18:07 - Hospital Course Hospital Course: 71 yo M Upper Sorbian-only speaking with 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 Pt son and mother is at bedside to translate. For the last 2 days, pt c/o worsening shortness of breath with subjective fevers. Pt states that he was unable to take care of him on his own at home as his condition was worsening and decided to bring him to the ED. Pt reports having a distended abdomen since being in [place], but denied ever having a paracentesis. Pt also c/o of b/l LE swelling and right LE pain with no apparent injury; pt is not ambulatory at home. Son reports no change in patient's mental status. Pt is originally from [place], where he was initially receiving treatment for his cirrhosis and hepatitis C. Pt came to the [place] about 1 year ago and is continuing treatment with [facility]. Pt denies CP, n/v/d, abdominal pain, melena, BRBPR, dysuria, pyuria, hematuria, chills, dizziness, ADAM, or rashes Patient with liver cirrhosis, was febrile and tachycardic. Code sepsis called. Diagnostic and therapeutic paracentesis performed under US guidance. 4 L removed. After the procedure, patient became hypotensive, was subsequently given fluid boluses and started on albumin. Fluid was analysis, SBP ruled out. Urine output was low so valdez catheter was inserted. Patient was evaluated for possible ICU admission however BPs improved. Patient was treated for sepsis 2/2 UTI and bacteremia. Lactate was elevated but eventually normalized. ID was consulted and on the case. Urine cx and Blood cx grew enterobacter. Patient was on Rocephin and completed 7 day course. Repeat blood and urine cx were negative. For shortness of breath, patient was given nebulizer treatments. Patient was also started on diuresis with Lasix and Aldactone. Patient presented with scrotal swelling and urinary retention. Testicular ultrasound was performed. Urology was consulted and on the case. Scrotum was elevated with towels. Patient was receiving Harvoni treatment for hepatitis C. Patient brought medication to the hospital and continued to course of treatment during his stay. Per the son, patient mobility is limited at home, in the setting of LE edema, LE dopplers were ordered to rule out DVT. Doppler were negative. On 04/17, patient spiked a fever of 102.2. Patient was given [address] abd/pelvis was ordered and showed no acute pathology. Patient remained afebrile for the remainder of hospital course. During hospital stay, patient was noted to be confused. CT head showed no acute intracranial findings. Patient was placed on 1:1 sitter, ammonia level was wnl. Started on lactulose which was titrated to two bowel movements. Labs were monitored and electrolytes were repleated as needed. On day of discharge, patient was doing well. OOB to chair. Patient was tolerating diet and voiding freely. PT evaluated the patient and recommended dispo home with services. Patient lives at home with the son, who states that he will be taking care of the patient. Prescription given for Cipro 500mg PO BID x 1 week. Patient also given prescription for Lasix 40mg BID. Keep scrotum elevated. Patient instructed to follow up with PMD, GI and urology within 1 week. All questions and concerns were addressed Discharge Exam - Head Exam Head Exam: ATRAUMATIC, NORMAL INSPECTION - Eye Exam Eye Exam: EOMI, Normal appearance, PERRL Pupil Exam: NORMAL ACCOMODATION - ENT Exam ENT Exam: Mucous Membranes Moist - Neck Exam Neck exam: Full Rom - Respiratory Exam Respiratory Exam: Clear to PA & Lateral, Wheezes, NORMAL BREATHING PATTERN. absent: Rales, Rhonchi - Cardiovascular Exam Cardiovascular Exam: REGULAR RHYTHM, +S1, +S2, Systolic Murmur - GI/Abdominal Exam GI & Abdominal Exam: Distended, Normal Bowel Sounds, Soft. absent: Guarding, Rebound, Rigid, Tenderness - Exam Exam: Scrotal Swelling. absent: Uretheral Discharge - Extremities Exam Extremities exam: normal inspection, pedal pulses present - Back Exam Back exam: NORMAL INSPECTION - Neurological Exam Neurological exam: Alert, Oriented x3 - Psychiatric Exam Psychiatric exam: Normal Affect, Normal Mood - Skin Skin Exam: Dry, Normal Color, Warm Discharge Plan - Discharge Medications Prescriptions: Ciprofloxacin HCl [Cipro] 500 mg PO BID 7 Days Furosemide [Lasix] 40 mg PO BID #60 tablet - Follow Up Plan Condition: STABLE Disposition: HOME/ ROUTINE Instructions: Sepsis (GEN), Ascites (DC), Dyspnea (GEN) Additional Instructions: Patient is cleared for discharge home. Continue antibiotics, Cipro 500mg BID x 7 days. Also prescribed Lasix 40mg PO BID. Patient completed Harvoni treatment. Instructed to follow up with PMD Urology and GI within 1 week. Continue scrotal support Referrals: Franky Rosario [Primary Care Provider] - <Humberto Vines - Last Filed: 04/23/17 10:16> Provider - Provider Date of Admission: 04/14/17 17:18 Attending physician: Humberto Vines MD Primary care physician: Franky Rosario MD Hospital Course - Lab Results Lab Results: Micro Results 04/18/17 09:36 Blood-Venous Blood Culture - Final NO GROWTH AFTER 5 DAYS 04/18/17 09:36 Blood-Venous Gram Stain - Final TEST NOT PERFORMED 04/18/17 09:36 Blood-Venous Blood Culture - Final NO GROWTH AFTER 5 DAYS 04/18/17 09:36 Blood-Venous Gram Stain - Final TEST NOT PERFORMED 04/14/17 18:07 Peritoneal Fluid Gram Stain - Final 04/14/17 18:07 Peritoneal Fluid Body Fluid Culture - Final No growth. 04/18/17 18:00 Urine,Valdez Urine Culture - Final No Growth (<1,000 CFU/ML) 04/15/17 09:08 Urine Urine Culture - Final Enterobacter Cloacae Ssp Cloac Most Recent Lab Values WBC 6.7 10^3/ul (4.5-11.0) 04/22/17 07:30 RBC 3.36 10^6/uL (3.5-6.1) L 04/22/17 07:30 Hgb 9.4 g/dL (14.0-18.0) L 04/22/17 07:30 Hct 28.4 % (42.0-52.0) L 04/22/17 07:30 MCV 84.5 fl (80.0-105.0) 04/22/17 07:30 MCH 28.0 pg (25.0-35.0) 04/22/17 07:30 MCHC 33.1 g/dl (31.0-37.0) 04/22/17 07:30 RDW 15.5 % (11.5-14.5) H 04/22/17 07:30 Plt Count 159 10^3/uL (120.0-450.0) 04/22/17 07:30 MPV 8.9 fl (7.0-11.0) 04/22/17 07:30 Gran % 66.1 % (50.0-68.0) 04/22/17 07:30 Lymph % (Auto) 13.4 % (22.0-35.0) L 04/22/17 07:30 [place] % (Auto) 12.5 % (1.0-6.0) H 04/22/17 07:30 Eos % (Auto) 6.8 % (1.5-5.0) H 04/22/17 07:30 Baso % (Auto) 1.2 % (0.0-3.0) 04/22/17 07:30 Gran # 4.41 (1.4-6.5) 04/22/17 07:30 Lymph # 0.9 (1.2-3.4) L 04/22/17 07:30 [place] # 0.8 (0.1-0.6) H 04/22/17 07:30 Eos # 0.5 (0.0-0.7) 04/22/17 07:30 Baso # 0.08 K/mm3 (0.0-2.0) 04/22/17 07:30 Neutrophils % (Manual) 70 % (50.0-70.0) 04/18/17 08:50 Band Neutrophils % 2 % (0-2) 04/18/17 08:50 Lymphocytes % (Manual) 13 % (22.0-35.0) L 04/18/17 08:50 Monocytes % (Manual) 13 % (1.0-6.0) H 04/18/17 08:50 Eosinophils % (Manual) 2 % (0.0-3.0) 04/18/17 08:50 Toxic Granulation 1+ 04/16/17 07:15 Platelet Evaluation Low (NORMAL) 04/18/17 08:50 Large Platelets Present 04/18/17 08:50 Polychromasia Slight 04/18/17 08:50 Hypochromasia 1+ 04/18/17 08:50 Anisocytosis (manual) 1+ 04/18/17 08:50 Microcytosis (manual) 1+ 04/18/17 08:50 Ovalocytes Slight 04/18/17 08:50 PT 15.7 Seconds (9.9-11.8) H 04/21/17 06:30 INR 1.45 (0.93-1.08) H 04/21/17 06:30 APTT 36.3 Seconds (23.7-30.8) H 04/21/17 06:30 pO2 108 mm/Hg (30-55) H 04/14/17 19:10 VBG pH 7.44 (7.32-7.43) H 04/14/17 19:10 VBG pCO2 41.0 (40-60) 04/14/17 19:10 VBG HCO3 27.8 mmol/l (21-28) 04/14/17 19:10 VBG Total CO2 29.1 mmol.L (22-28) H 04/14/17 19:10 VBG O2 Sat (Calc) 99.2 % (40-65) H 04/14/17 19:10 VBG Base Excess 3.3 mmol/L (0.0-2.0) H 04/14/17 19:10 VBG Potassium 3.8 mmol/L (3.6-5.2) 04/14/17 19:10 Sodium 131.0 mmol/L (132-148) L 04/14/17 19:10 Chloride 103.0 mmol/L (98-107) 04/14/17 19:10 Glucose 98 mg/dl (75-110) 04/14/17 19:10 Lactate 1.7 mmol/L (0.7-2.1) 04/14/17 19:10 FiO2 21.0 % 04/14/17 19:10 Sodium 134 mmol/L (132-148) 04/22/17 07:30 Potassium 4.3 mmol/L (3.6-5.0) 04/22/17 07:30 Chloride 98 mmol/L (98-107) 04/22/17 07:30 Carbon Dioxide 34 mmol/L (21-33) H 04/22/17 07:30 Anion Gap 6 (10-20) L 04/22/17 07:30 BUN 17 mg/dL (7-21) 04/22/17 07:30 Creatinine 0.9 mg/dL (0.5-1.4) 04/22/17 07:30 Est GFR ( Amer) > 60 04/22/17 07:30 Est GFR (Non-Af Amer) > 60 04/22/17 07:30 Random Glucose 78 mg/dL (70-110) 04/22/17 07:30 Lactic Acid 1.1 mmol/L (0.7-2.1) 04/18/17 08:50 Calcium 8.1 mg/dL (8.4-10.5) L 04/22/17 07:30 Phosphorus 4.0 mg/dL (2.5-4.5) 04/22/17 07:30 Magnesium 1.6 mg/dL (1.7-2.2) L 04/22/17 07:30 Total Bilirubin 1.7 mg/dL (0.2-1.3) H 04/22/17 07:30 AST 91 U/L (15-59) H 04/22/17 07:30 ALT 28 U/L (7-56) 04/22/17 07:30 Alkaline Phosphatase 135 U/L (38-133) H 04/22/17 07:30 Ammonia 33 umol/L (9-33) 04/16/17 12:40 Lactate Dehydrogenase 574 U/L (333-699) 04/14/17 15:50 Total Creatine Kinase 276 U/L (35-230) H 04/14/17 15:50 CK-MB (CK-2) < 0.2 ng/mL (0.0-3.6) 04/14/17 15:50 CK-MB (CK-2) % Cancelled 04/14/17 15:50 Troponin I 0.03 ng/mL 04/14/17 15:50 Total Protein 7.1 g/dL (5.8-8.3) 04/22/17 07:30 Albumin 2.3 g/dL (3.0-4.8) L 04/22/17 07:30 Globulin 4.9 gm/dL 04/22/17 07:30 Albumin/Globulin Ratio 0.5 (1.1-1.8) L 04/22/17 07:30 Triglycerides 94 mg/dL (35-160) 04/18/17 11:14 Cholesterol 72 mg/dL (130-200) L 04/18/17 11:14 LDL Cholesterol Direct 39 mg/dL (0-129) 04/18/17 11:14 HDL Cholesterol 9 mg/dL (29-60) L 04/18/17 11:14 Lipase 180 U/L (23-300) 04/14/17 15:50 Procalcitonin 1.52 NG/ML (0.19-0.49) H 04/18/17 09:09 Venous Blood Potassium 3.8 mmol/L (3.6-5.2) 04/14/17 19:10 Urine Color Yellow (YELLOW) 04/18/17 18:00 Urine Appearance Clear (CLEAR) 04/18/17 18:00 Urine pH 6.0 (4.7-8.0) 04/18/17 18:00 Ur Specific [place] 1.010 (1.005-1.035) 04/18/17 18:00 Urine Protein Negative mg/dL (<30 mg/dL) 04/18/17 18:00 Urine Glucose (UA) Negative mg/dL (NEGATIVE) 04/18/17 18:00 Urine Ketones Negative mg/dL (NEGATIVE) 04/18/17 18:00 Urine Blood Small (NEGATIVE) H 04/18/17 18:00 Urine Nitrate Negative (NEGATIVE) 04/18/17 18:00 Urine Bilirubin Negative (NEGATIVE) 04/18/17 18:00 Urine Urobilinogen 0.2 E.U./dL (<1 E.U./dL) 04/18/17 18:00 Ur Leukocyte Esterase Moderate Stacie/uL (NEGATIVE) H 04/18/17 18:00 Urine RBC 5 - 10 /hpf (0-2) 04/18/17 18:00 Urine WBC 2 - 5 /hpf (0-6) 04/18/17 18:00 Ur Epithelial Cells 0 - 2 /hpf (0-5) 04/18/17 18:00 Urine Bacteria Small (NEG) 04/18/17 18:00 Fluid Source Peritoneal 04/14/17 18:07 Fluid Appearance Clear (CLEAR) 04/14/17 18:07 Fluid WBC 25.3 /uL (0.0-300.0) 04/14/17 18:07 Fluid RBC 26.4 /uL (0.0-0.0) H 04/14/17 18:07 Fluid Tot Cell Count 100 (0-0) H 04/14/17 18:07 Fluid Neutrophils 1.0 % (0-0) H 04/14/17 18:07 Fluid Lymphocytes 90.0 % (0-0) H 04/14/17 18:07 Fld Monocyte/Macrophag 9 % (0-0) H 04/14/17 18:07 Fluid Comment Yellow 04/14/17 18:07 Peritoneal Tot Protein <3.0 g/dL 04/14/17 18:07 Peritoneal LDH 32 U/L (<63) 04/14/17 18:07 Peritoneal Glucose 134 mg/dL 04/14/17 18:07 Peritoneal Lipase 5.0 U/L (<10) 04/14/17 18:07 Attending/Attestation - Attestation I have personally seen and examined this patient.: Yes I have fully participated in the care of the patient.: Yes I have reviewed all pertinent clinical information, including history, physical exam and plan: Yes Notes (Text): I have seen and examined the patient at bedside. 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 Upon admission, he was found to have sepsis, coagulopathy, transaminitis, urinary retention and lactic acidosis. Ascitic fluid was tapped and 3-4 L were removed. SBP ruled out. Sepsis is secondary to E cloacae bacteremia and UTI which is sensitive to rocephin. Repeat cultures are all negative. Patient will be sent home on po cipro. Urology consult appreciated. Patient also had urinary retention and valdez was placed however valdez was removed prior to discharge and patient was able to void without any difficulty.Continue lasix and aldactone . There is no portal venous thrombosis. Patient is alert, awake and oriented x3. CT head did not show any acute changes. Ammonia level normal. Continue diuretics. Echo normal. LE duplex negative for DVT. PT recommended to discharge patient home with sevices. Patient lives with family at home with his and son. Upon discharge patient will follow up with Dr Little. Dr Humberto Vines
[2017-04-22] MEDS: cefTRIAXone 2 GM IN NS 2 GM/100 ML BAG IVPB SCH (11:54)
--- NOTE | 2017-04-23 02:37 | PN ---
DATE: 04/22/2017 SUBJECTIVE: Patient seen in bed in no acute distress, nontoxic. PHYSICAL EXAMINATION: VITAL SIGNS: Temperature is 98, blood pressure is 103/60 and respiratory rate of 21. HEENT: Unremarkable. NECK: Supple. LUNGS: Decreased breath sounds. HEART: Normal S1 and S2. ABDOMEN: Soft and nontender. LABORATORY DATA: Reveals white count of 6.7, hemoglobin of 9 and platelets of 159. Chemistry reveals BUN of 17 and creatinine of 0.9. Urinalysis is noted. Peritoneal fluid is noted and microbiology is reviewed. ASSESSMENT AND PLAN: This is a 71-year-old male seen earlier this morning in room #374, bed 1 with sepsis due to Enterobacter urinary tract infection and bacteremia. No evidence of intraabdominal infection. Study status post thoracentesis,no evidence of spontaneous bacterial peritonitis and day #8 of antibiotics and switched to p.o. Cipro and Levaquin upon discharge. Vasquez Luther MD
== END 2017-04-22 17:47 | disposition home or self-care (01) | DRG 584 ==
LOC: ED 15:30 → ERH 17:18 → 2RNO 21:30 → UNDODISIN 04-15 06:32 → 2RSO 04-16 07:05 → 3RSO 04-21 15:30
PROVIDERS: ADMIT Hospitalist; ATTEND Hospitalist
PROC: 0W9G3ZZ Drainage of Peritoneal Cavity, Percutaneous Approach (ICD-10-PCS; principal; 2017-04-14)
PROC: 3E0F7GC Introduction of Other Therapeutic Substance into Respiratory Tract, Via Natural or Artificial Opening (ICD-10-PCS; 2017-04-15)
DX: A41.59 Other Gram-negative sepsis (principal); R65.20 Severe sepsis without septic shock; N39.0 Urinary tract infection, site not specified; R18.8 Other ascites; B18.2 Chronic viral hepatitis C; K74.60 Unspecified cirrhosis of liver; E87.2 Acidosis; D65 Disseminated intravascular coagulation [defibrination syndrome]; E87.1 Hypo-osmolality and hyponatremia; N50.89 Other specified disorders of the male genital organs; R33.9 Retention of urine, unspecified; N50.82 Scrotal pain; D69.6 Thrombocytopenia, unspecified; E83.42 Hypomagnesemia

== ENCOUNTER 2018-09-02 21:35 | Inpatient (IN) | payer MEDICAID, SELFPAY ==
[2018-09-02 23:05] VITALS: BMI 28.5
[2018-09-02] MEDS ORDERED: Sodium Chloride 0.9% 1,000 ML IV STA (23:55)
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
[2018-09-03 00:15] LABS: BASO # 0.03 K/mm3 (0.0-2.0); BASO % 0.9 % (0.0-3.0); EOS % 0.6 % (1.5-5.0); GRAN # 2.8 (1.4-6.5); GRAN % 81.9 % (50.0-68.0); HEMOGLOBIN 12.3 g/dL (14.0-18.0); LYMPH # 0.3 (1.2-3.4); LYMPH % 9.6 % (22.0-35.0); MEAN CELL VOLUME 85.2 fl (80.0-105.0); MEAN CORPUSCULAR HEMOGLOBIN 27.6 pg (25.0-35.0); MEAN CORPUSCULAR HGB CONC 32.5 g/dl (31.0-37.0); MEAN PLATELET VOLUME 10.6 fl (7.0-11.0); MONO # 0.2 (0.1-0.6); RBC 4.45 10^6/uL (3.5-6.1); RED CELL DISTRIBUTION WIDTH 14.7 % (11.5-14.5); WHITE BLOOD COUNT 3.4 10^3/uL (4.5-11.0)
[2018-09-03 00:18] LABS: INR 1.22; PARTIAL THROMBOPLASTIN TIME 31.7 Seconds (25.1-36.5)
[2018-09-03 00:30] LABS: ALB/GLOB RATIO 0.8 (1.1-1.8); ALBUMIN 3.4 g/dL (3.0-4.8); ALT/SGPT 21 U/L (7-56); AST/SGOT 48 U/L (17-59); BLOOD UREA NITROGEN 11 mg/dL (7-21); CALCIUM 8.6 mg/dL (8.4-10.5); GFR NON-AFRICAN AMERICAN > 60; LIPASE 131 U/L (23-300)
[2018-09-03 00:41] LABS: TROPONIN I < 0.01 ng/mL
[2018-09-03] MEDS ORDERED: Iohexol 350 MG/100 ML VIAL ONE (01:47)
[2018-09-03 03:15] LABS: PH,URINE 6.5 (4.7-8.0); URINE BILIRUBIN NEGATIVE (NEGATIVE); URINE BLOOD TRACE-INTACT (NEGATIVE); URINE GLUCOSE (UA) NEGATIVE (NEGATIVE); URINE LEUKOCYTE ESTERASE NEGATIVE Leu/uL (NEGATIVE); URINE PROTEIN NEGATIVE mg/dL (<30 mg/dL); URINE UROBILINOGEN 0.2 E.U./dL (<1 E.U./dL)
[2018-09-03 03:19] LABS: URINE APPEARANCE CLEAR (CLEAR); URINE COLOR YELLOW (YELLOW)
[2018-09-03 03:31] LABS: URINE EPITHELIAL CELLS 0 - 2 /hpf (0-5); URINE WBC 0 - 2 /hpf (0-6)
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
[2018-09-03] MEDS: Sodium Chloride 0.9% 1,000 ML IV SCH (05:10)
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
[2018-09-03 05:31] LABS: VENOUS BLOOD GAS PO2 41 mm/Hg (30-55)
[2018-09-03] MEDS ORDERED: Morphine 2 mg/ml ISec IVP PRN ×2 (06:00→06:24)
--- NOTE | 2018-09-03 09:38 | CARD ---
APPROVED REPORT Date of service: 09/02/2018 EKG Measurement Heart [id number] <Conclusion> Normal sinus rhythm with sinus arrhythmia Normal ECG
--- NOTE | 2018-09-03 10:08 | RAD ---
Date of service: 09/03/2018 HISTORY: preop COMPARISON: 04/15/2017 TECHNIQUE: Chest PA and lateral FINDINGS: LUNGS: No active pulmonary disease. PLEURA: No significant pleural effusion identified. No pneumothorax apparent. CARDIOVASCULAR: No aortic atherosclerotic calcification present. Normal cardiac size. No pulmonary vascular congestion. OSSEOUS STRUCTURES: No significant abnormalities. VISUALIZED UPPER ABDOMEN: Normal. OTHER FINDINGS: None. IMPRESSION: No active disease.
[2018-09-03] MEDS ORDERED: Propofol 10 mg/ml Inj (20 ML) ONE (11:41)
[2018-09-03] MEDS ORDERED: Midazolam 2 MG/2 ML VIAL ONE (11:41)
[2018-09-03] MEDS ORDERED: Sevoflurane - Inhalation Anesthetic Liq (250 ml) ONE (11:42)
[2018-09-03] MEDS ORDERED: Rocuronium 10 mg/ml (5 ml) ONE (11:45)
[2018-09-03] MEDS ORDERED: Succinylcholine 200 mg/10 ml Inj IV ONE (11:45)
[2018-09-03] MEDS ORDERED: Phenylephrine 10 mg/ml Inj ONE (12:23)
[2018-09-03] MEDS ORDERED: CeFAZolin 1 gm in NS 100ml IVPB ONE (12:40)
[2018-09-03] MEDS ORDERED: Bupivacaine 0.5% 50 ML IJ ONE ×2 (12:43→13:30)
[2018-09-03] MEDS ORDERED: Glycopyrrolate 0.2 mg/ml (2ml vial) ONE (13:17)
[2018-09-03] MEDS ORDERED: Neostigmine Methylsulfate 3mg/3ml Syringe IV ONE (13:17)
[2018-09-03] MEDS ORDERED: HYDROmorphone 0.5 mg/0.5 ml ISec IVP PRN (13:55)
--- NOTE | 2018-09-03 13:57 | PCM.SURG1 ---
Surgeon's Initial Post Op Note - Surgeon's Notes Surgeon: Deandre Lithographic Proofer: Panfilo PGY4 Type of Anesthesia: General Endo, Local Pre-Operative Diagnosis: Incarcerated R spigelian hernia Operative Findings: Incarcerated loops small bowel, dusky in appearance, ascites Post-Operative Diagnosis: same Operation Performed: Open repair of R spigelian hernia w. 4.6cm ventralex mesh Specimen/Specimens Removed: hernia sac Estimated Blood Loss: EBL {In ML}: 25 Blood Products Given: N/A Drains Used: No Drains Post-Op Condition: Good Date of Surgery/Procedure: 09/03/18 Time of Surgery/Procedure: 14:01
[2018-09-03] MEDS ORDERED: Sodium Chloride 0.9% 1,000 ML IV SCH (14:00)
[2018-09-03] MEDS ORDERED: Oxycodone/Acetaminophen 5/325 mg Tab PO PRN (14:03)
--- NOTE | 2018-09-03 14:05 | CT ---
Date of service: 09/03/2018 PROCEDURE: CT Abdomen and Pelvis with contrast HISTORY: abdominal pain COMPARISON: 04/18/2017 CT TECHNIQUE: Contrast dose: 100 cc of Omni 350 Radiation dose: Total exam DLP = 406.69 mGy-cm. This CT exam was performed using one or more of the following dose reduction techniques: Automated exposure control, adjustment of the mA and/or kV according to patient size, and/or use of iterative reconstruction technique. FINDINGS: LOWER THORAX: Unremarkable. LIVER: The liver has an irregular contour consistent with cirrhosis. The portal vein is patent. There is significant improvement in the severe ascites seen previously GALLBLADDER AND BILE DUCTS: Multiple gallstones. No acute cholecystitis PANCREAS: Unremarkable. No gross lesion or ductal dilatation. SPLEEN: Unremarkable. ADRENALS: Unremarkable. No mass. KIDNEYS AND URETERS: Unremarkable. No hydronephrosis. No solid mass. 5 mm stone in the lower pole of the right kidney VASCULATURE: Unremarkable. No aortic aneurysm. No aortic atherosclerotic calcification or mural plaque present. BOWEL: Small bowel obstruction secondary to right inguinal hernia APPENDIX: Normal appendix. PERITONEUM: Bilateral abdominal wall hernias containing fluid collections at the level of the iliac crests. Right inguinal hernia containing a segment of small bowel with associated small bowel obstruction LYMPH NODES: Unremarkable. No enlarged lymph nodes. BLADDER: Unremarkable. REPRODUCTIVE: Unremarkable. BONES: No acute fracture. OTHER FINDINGS: The report concurs with the preliminary [facility] report IMPRESSION: Bilateral abdominal wall hernias containing fluid collections at the level of the iliac crests. Right inguinal hernia containing a segment of small bowel with associated small bowel obstruction See comments
[2018-09-03] MEDS ORDERED: DICYCLOMINE 20 MG PO SCH (18:00)
--- NOTE | 2018-09-04 02:00 | OP ---
PROCEDURE DATE: 09/03/2018 PREOPERATIVE DIAGNOSIS: Incarcerated right-sided spigelian hernia. POSTOPERATIVE DIAGNOSIS: Incarcerated right-sided spigelian hernia. PROCEDURE: Open repair of right-sided spigelian hernia with mesh. SURGEON: Luis Carrera MD. TECHNOLOGY INTEGRATION SPECIALIST: Bhavin Whittaker DO. INDICATIONS: This is a 72-year-old male who presented to the ER with acute onset of right lower quadrant abdominal pain. CAT scan done in the ED was significant for small bowel obstruction secondary to an incarcerated right-sided spigelian hernia. Operative repair was indicated. DESCRIPTION OF PROCEDURE: After informed consent was obtained, the patient was brought to the operating room and placed on the operating room table in a supine position. A general anesthesia was induced, and the patient was then prepped and draped in the usual sterile fashion. A timeout was then completed verifying correct patient, position, site, laterality, and implant. Next preoperative antibiotics were given and a transverse incision was made over the hernia in the right lower quadrant. The incision was deepened down to the external oblique at which time the external oblique was divided and the hernia sac was then encountered. The hernia sac was then dissected free and the peritoneum of the sac was then entered at which time a large amount of ascites was encountered as well as an ischemic appearing small bowel. Once the bowel was freed, in appearance and we were able to reduce it back into the abdomen without any difficulty. Next the sac was then suture ligated and the sac region was returned to the abdominal cavity. Next, a 4.6 cm Ventralex mesh was placed into the defect and this was sutured to the internal oblique in a running fashion using a #0 PDS. Next the external oblique was closed in a running manner using 2-0 Vicryl, and then the Foreign's fascia was closed using interrupted 2-0 Vicryl. Skin was then closed with sesar and the surgical site was infiltrated with Marcaine. The patient tolerated the procedure well and is brought to the PACU in stable condition. Bhavin Whittaker DO Luis Carrera MD [facility] # [id number]
[2018-09-04] MEDS: Sodium Chloride 0.9% 1,000 ML IV SCH ×2 (03:23→15:40)
--- NOTE | 2018-09-04 07:12 | CP.PCM.PN ---
<JudyShayyantonina L - Last Filed: 09/04/18 14:39> Subjective - Date & Time of Evaluation Date of Evaluation: 09/04/18 Time of Evaluation: 07:11 - Subjective Subjective: Resident Progress Note for Hospitalist Service Patient examined at bedside. No acute events overnight. Patient is POD#1 s/p repair of Spigelian hernia. Patient has not passed flatus or bowel movement yet. Tolerating liquid diet. Denies fevers, chills, chest pain, shortness of breath. Objective - Vital Signs/Intake and Output Vital Signs (last 24 hours): Temp Pulse Resp BP Pulse Ox 98.9 F 91 H 20 134/75 95 09/03/18 22:00 09/03/18 22:00 09/03/18 22:00 09/03/18 22:00 09/03/18 22:00 Intake and Output: 09/04/18 09/04/18 06:59 18:59 Intake Total 1100 Output Total 300 Balance 800 - Medications Medications: Current Medications Dicyclomine HCl (Bentyl) 20 mg PO BID [facility] Last Admin: 09/03/18 19:04 Dose: 20 mg Docusate Sodium (Colace) 100 mg PO BID [facility] Last Admin: 09/03/18 19:04 Dose: 100 mg Enoxaparin Sodium (Lovenox) 40 mg SC DAILY [facility]; Protocol Hydromorphone HCl (Dilaudid) 0.5 mg IVP Q15M PRN PRN Reason: Pain, Moderate/Severe (4-10) Sodium Chloride (Sodium Chloride 0.9%) 1,000 mls @ 100 mls/hr IV .Q10H [facility] Last Admin: 09/04/18 03:23 Dose: 100 mls/hr Ibuprofen (Motrin Tab) 400 mg PO Q6H PRN PRN Reason: Pain, Mild (1-3) Morphine Sulfate (Morphine) 1 mg IVP Q6H PRN PRN Reason: Pain, severe (8-10) Morphine Sulfate (Morphine) 2 mg IVP Q4 PRN PRN Reason: Pain, moderate (4-7) Ledipasvir/Sofosbuvir [Harvoni 90-400 Mg Tablet] 1 Tab (Home Med) 1 tab PO DAILY [facility] Ondansetron HCl (Zofran Inj) 4 mg IVP Q6H PRN PRN Reason: Nausea/Vomiting Last Admin: 09/03/18 04:05 Dose: 4 mg Oxycodone/Acetaminophen (Percocet 5/325 Mg Tab) 1 tab PO Q4H PRN PRN Reason: Pain, moderate (4-7) Stop: 09/06/18 14:04 Pantoprazole Sodium (Protonix Inj) 40 mg IVP DAILY [facility] Last Admin: 09/03/18 11:00 Dose: 40 mg - Labs Labs: 09/02/18 23:56 09/02/18 23:56 PT 14.0 SECONDS (9.4-12.5) H 09/02/18 23:56 INR 1.22 09/02/18 23:56 APTT 31.7 Seconds (25.1-36.5) 09/02/18 23:56 - Additional Findings Additional findings: - Constitutional Appears: Well, Non-toxic, No Acute Distress - Head Exam Head Exam: ATRAUMATIC, NORMAL INSPECTION, NORMOCEPHALIC - Eye Exam Eye Exam: EOMI Pupil Exam: PERRL - Respiratory Exam Respiratory Exam: Clear to Auscultation Bilateral, NORMAL BREATHING PATTERN - Cardiovascular Exam Cardiovascular Exam: REGULAR RHYTHM, RRR - GI/Abdominal Exam GI & Abdominal Exam: Soft, Tenderness (diffuse), Guarding. absent: Rebound, Distended. Additional comments: surgical dressing in RLQ clean/dry/intact - Extremities Exam Extremities exam: Positive for: full ROM - Neurological Exam Neurological exam: Alert, CN II-XII Intact, Oriented x3 - Skin Skin Exam: Dry, Intact, Normal Color Assessment and Plan - Assessment and Plan (Free Text) Assessment: 72 year old male with past medical history cirrhosis 2/2 to treated hepatitis C and hydrocele presents with diffuse abdominal pain, found to have right spigelian hernia and SBO, now s/p hernia repair POD#1. Plan: Spigelian hernia - s/p hernia repair POD#1 - further management per surgery team - advance diet as tolerated - Zofran PRN - morphine and dilaudid for pain control Calcified prostate gland - incidental finding suspicious for prostate cancer - asymptomatic at this time - outpatient urology for further evaluation History of cirrhosis - resolved Hepatitis C - CT Abdomen results consistent with diagnosis of cirrhosis, perihepatic ascites - AST and ALT are unremarkable. ALP is elevated at 191. - continue home Harvoni 90-400 mg tablet once daily PPX - Protonix 40 mg IVP daily - Lovenox 40 mg SC daily Case discussed with Dr. Arjun Kim PGY-1 <Gene Díaz - Last Filed: 09/06/18 08:56> Objective - Vital Signs/Intake and Output Vital Signs (last 24 hours): Temp Pulse Resp BP Pulse Ox 99.3 F 96 H 20 120/74 97 09/05/18 14:00 09/05/18 14:00 09/05/18 14:00 09/05/18 17:32 09/05/18 14:00 - Labs Labs: 09/05/18 06:30 09/05/18 06:30 PT 14.0 SECONDS (9.4-12.5) H 09/02/18 23:56 INR 1.22 09/02/18 23:56 APTT 31.7 Seconds (25.1-36.5) 09/02/18 23:56 Attending/Attestation - Attestation I have personally seen and examined this patient.: Yes I have fully participated in the care of the patient.: Yes I have reviewed all pertinent clinical information, including history, physical exam and plan: Yes Notes (Text): 09/06/18 08:56 Medical record note made by the resident after discussion with my direction and input after the patient was personally seen and examined by me. I have reviewed the chart and agree that the record accurately reflects by personal performance of the history, physical exam, data review, and medical decision-making, in the course for the patient. I have also personally directed the plan of care.
[2018-09-04 07:14] LABS: BASO # 0.02 K/mm3 (0.0-2.0); BASO % 0.3 % (0.0-3.0); EOS % 0.4 % (1.5-5.0); GRAN # 5.68 (1.4-6.5); HEMOGLOBIN 11.5 g/dL (14.0-18.0); LYMPH # 0.8 (1.2-3.4); LYMPH % 10.4 % (22.0-35.0); MEAN CELL VOLUME 85.4 fl (80.0-105.0); MEAN CORPUSCULAR HEMOGLOBIN 27.1 pg (25.0-35.0); MEAN CORPUSCULAR HGB CONC 31.8 g/dl (31.0-37.0); MEAN PLATELET VOLUME 10.7 fl (7.0-11.0); MONO # 1.1 (0.1-0.6); MONO % 13.9 % (1.0-6.0); RBC 4.24 10^6/uL (3.5-6.1); RED CELL DISTRIBUTION WIDTH 15.3 % (11.5-14.5); WHITE BLOOD COUNT 7.6 10^3/uL (4.5-11.0)
--- NOTE | 2018-09-04 07:46 | CP.PCM.PN ---
Subjective - Date & Time of Evaluation Date of Evaluation: 09/04/18 Time of Evaluation: 06:49 - Subjective Subjective: PGY-1 Scarlet Jain D.O. Surgery progress note for Dr. Carrera: Patient was seen and examined this morning. He states he is having pain at his incision site, but it is tolerable. He has not yet had a BM. He is tolerating a clear liquid diet. Denies nausea and vomiting. Objective - Vital Signs/Intake and Output Vital Signs (last 24 hours): Temp Pulse Resp BP Pulse Ox 98.9 F 91 H 20 134/75 95 09/03/18 22:00 09/03/18 22:00 09/03/18 22:00 09/03/18 22:00 09/03/18 22:00 Intake and Output: 09/04/18 09/04/18 06:59 18:59 Intake Total 1100 Output Total 300 Balance 800 - Medications Medications: Current Medications Dicyclomine HCl (Bentyl) 20 mg PO BID [facility] Last Admin: 09/03/18 19:04 Dose: 20 mg Docusate Sodium (Colace) 100 mg PO BID [facility] Last Admin: 09/03/18 19:04 Dose: 100 mg Enoxaparin Sodium (Lovenox) 40 mg SC DAILY [facility]; Protocol Hydromorphone HCl (Dilaudid) 0.5 mg IVP Q15M PRN PRN Reason: Pain, Moderate/Severe (4-10) Sodium Chloride (Sodium Chloride 0.9%) 1,000 mls @ 100 mls/hr IV .Q10H [facility] Last Admin: 09/04/18 03:23 Dose: 100 mls/hr Ibuprofen (Motrin Tab) 400 mg PO Q6H PRN PRN Reason: Pain, Mild (1-3) Morphine Sulfate (Morphine) 1 mg IVP Q6H PRN PRN Reason: Pain, severe (8-10) Morphine Sulfate (Morphine) 2 mg IVP Q4 PRN PRN Reason: Pain, moderate (4-7) Ledipasvir/Sofosbuvir [Harvoni 90-400 Mg Tablet] 1 Tab (Home Med) 1 tab PO DAILY [facility] Ondansetron HCl (Zofran Inj) 4 mg IVP Q6H PRN PRN Reason: Nausea/Vomiting Last Admin: 09/03/18 04:05 Dose: 4 mg Oxycodone/Acetaminophen (Percocet 5/325 Mg Tab) 1 tab PO Q4H PRN PRN Reason: Pain, moderate (4-7) Stop: 09/06/18 14:04 Pantoprazole Sodium (Protonix Inj) 40 mg IVP DAILY [facility] Last Admin: 09/03/18 11:00 Dose: 40 mg - Labs Labs: 09/04/18 06:30 09/02/18 23:56 PT 14.0 SECONDS (9.4-12.5) H 09/02/18 23:56 INR 1.22 09/02/18 23:56 APTT 31.7 Seconds (25.1-36.5) 09/02/18 23:56 - Constitutional Appears: Non-toxic, No Acute Distress - Head Exam Head Exam: ATRAUMATIC, NORMAL INSPECTION - Eye Exam Eye Exam: EOMI, Normal appearance - ENT Exam ENT Exam: Mucous Membranes Moist - Neck Exam Neck Exam: Normal Inspection - Respiratory Exam Respiratory Exam: NORMAL BREATHING PATTERN. absent: Accessory Muscle Use, Respiratory Distress - Cardiovascular Exam Cardiovascular Exam: REGULAR RHYTHM - GI/Abdominal Exam GI & Abdominal Exam: Soft, Tenderness (around surgical incision site). absent: Distended Additional comments: clean dry bandage on RLQ surgical incision- no signs of bleeding or infection - Extremities Exam Extremities Exam: Normal Inspection - Neurological Exam Neurological Exam: Alert, Awake, CN II-XII Intact, Oriented x3 - Psychiatric Exam Psychiatric exam: Normal Affect, Normal Mood - Skin Skin Exam: Dry, Normal Color, Warm Assessment and Plan - Assessment and Plan (Free Text) Assessment: 72M POD1 incarcerated R Spigelian hernia open repair with 4.6 cm Ventralex mesh Plan: - Monitor bowel function - Advance diet as tolerated - PT- ambulation, OOB to chair - Post-op care to incision site - Analgesics PRN Further recs as per attending, Dr. Carrera.
[2018-09-04 09:10] LABS: ALB/GLOB RATIO 0.7 (1.1-1.8); ALBUMIN 2.6 g/dL (3.0-4.8); ALT/SGPT 27 U/L (7-56); AST/SGOT 42 U/L (17-59); BLOOD UREA NITROGEN 9 mg/dL (7-21); CALCIUM 7.7 mg/dL (8.4-10.5); GFR NON-AFRICAN AMERICAN > 60
[2018-09-04] MEDS ORDERED: Magnesium Sulfate 2 gm/50 ml 2 GM/50 ML BAG IVPB ONE (09:52)
[2018-09-04] MEDS: Enoxaparin 40 mg Syringe SC SCH (10:00)
[2018-09-04] MEDS: LEDIPASVIR PO SCH (10:43)
[2018-09-04] MEDS: SOFOSBUVIR PO SCH (10:43)
[2018-09-04 22:04] VITALS: RESP 20
[2018-09-05] MEDS: Sodium Chloride 0.9% 1,000 ML IV SCH (04:01)
[2018-09-05 07:06] LABS: BASO # 0.03 K/mm3 (0.0-2.0); BASO % 0.4 % (0.0-3.0); EOS # 0.1 (0.0-0.7); EOS % 0.7 % (1.5-5.0); GRAN # 4.91 (1.4-6.5); GRAN % 71.3 % (50.0-68.0); LYMPH # 0.9 (1.2-3.4); LYMPH % 12.8 % (22.0-35.0); MEAN CELL VOLUME 85.2 fl (80.0-105.0); MEAN CORPUSCULAR HEMOGLOBIN 27.6 pg (25.0-35.0); MEAN CORPUSCULAR HGB CONC 32.4 g/dl (31.0-37.0); MEAN PLATELET VOLUME 10.9 fl (7.0-11.0); MONO % 14.8 % (1.0-6.0); RBC 3.99 10^6/uL (3.5-6.1); WHITE BLOOD COUNT 6.9 10^3/uL (4.5-11.0)
--- NOTE | 2018-09-05 07:11 | CP.PCM.PN ---
Objective - Vital Signs/Intake and Output Vital Signs (last 24 hours): Temp Pulse Resp BP Pulse Ox 99.4 F 83 20 119/74 95 09/04/18 22:03 09/04/18 22:03 09/04/18 22:03 09/04/18 22:03 09/04/18 22:03 Intake and Output: 09/05/18 09/05/18 06:59 18:59 Intake Total 0 Output Total 300 Balance -300 - Medications Medications: Current Medications Dicyclomine HCl (Bentyl) 20 mg PO BID [facility] Last Admin: 09/04/18 17:11 Dose: 20 mg Docusate Sodium (Colace) 100 mg PO BID [facility] Last Admin: 09/04/18 17:10 Dose: 100 mg Enoxaparin Sodium (Lovenox) 40 mg SC DAILY [facility]; Protocol Last Admin: 09/04/18 10:00 Dose: 40 mg Hydromorphone HCl (Dilaudid) 0.5 mg IVP Q15M PRN PRN Reason: Pain, Moderate/Severe (4-10) Sodium Chloride (Sodium Chloride 0.9%) 1,000 mls @ 100 mls/hr IV .Q10H [facility] Last Admin: 09/05/18 04:01 Dose: 100 mls/hr Ibuprofen (Motrin Tab) 400 mg PO Q6H PRN PRN Reason: Pain, Mild (1-3) Morphine Sulfate (Morphine) 1 mg IVP Q6H PRN PRN Reason: Pain, severe (8-10) Morphine Sulfate (Morphine) 2 mg IVP Q4 PRN PRN Reason: Pain, moderate (4-7) Ledipasvir/Sofosbuvir [Harvoni 90-400 Mg Tablet] 1 Tab (Home Med) 1 tab PO DAILY [facility] Last Admin: 09/04/18 10:43 Dose: Not Given Ondansetron HCl (Zofran Inj) 4 mg IVP Q6H PRN PRN Reason: Nausea/Vomiting Last Admin: 09/03/18 04:05 Dose: 4 mg Oxycodone/Acetaminophen (Percocet 5/325 Mg Tab) 1 tab PO Q4H PRN PRN Reason: Pain, moderate (4-7) Stop: 09/06/18 14:04 Pantoprazole Sodium (Protonix Inj) 40 mg IVP DAILY [facility] Last Admin: 09/04/18 09:59 Dose: 40 mg - Labs Labs: 09/04/18 06:30 09/04/18 06:30 PT 14.0 SECONDS (9.4-12.5) H 09/02/18 23:56 INR 1.22 09/02/18 23:56 APTT 31.7 Seconds (25.1-36.5) 09/02/18 23:56
[2018-09-05 07:37] LABS: ALB/GLOB RATIO 0.7 (1.1-1.8); ALBUMIN 2.4 g/dL (3.0-4.8); ALT/SGPT 23 U/L (7-56); AST/SGOT 39 U/L (17-59); BLOOD UREA NITROGEN 7 mg/dL (7-21); CALCIUM 7.4 mg/dL (8.4-10.5); GFR NON-AFRICAN AMERICAN > 60
[2018-09-05] MEDS: Enoxaparin 40 mg Syringe SC SCH (11:11)
[2018-09-05] MEDS: SOFOSBUVIR PO SCH (11:16)
[2018-09-05] MEDS: LEDIPASVIR PO SCH (11:16)
--- NOTE | 2018-09-05 13:14 | CP.PCM.DIS ---
<Krystina Kim L - Last Filed: 09/05/18 16:50> Provider - Provider Date of Admission: 09/03/18 03:55 Attending physician: Gene Díaz MD Consults: 09/03/18 03:56 General Surgery Consult Stat Comment: Consulting Provider: Luis Carrera Consulting Physician: Luis Carrera Reason for Consult: sbo Time Spent in preparation of Discharge (in minutes): 35 Diagnosis - Discharge Diagnosis (1) Spigelian hernia with bowel obstruction Status: Resolved Hospital Course - Lab Results Lab Results: Micro Results 09/03/18 03:00 Urine Urine Culture - Final No Growth (<1,000 CFU/ML) Most Recent Lab Values WBC 6.9 10^3/uL (4.5-11.0) 09/05/18 06:30 RBC 3.99 10^6/uL (3.5-6.1) 09/05/18 06:30 Hgb 11.0 g/dL (14.0-18.0) L 09/05/18 06:30 Hct 34.0 % (42.0-52.0) L 09/05/18 06:30 MCV 85.2 fl (80.0-105.0) 09/05/18 06:30 MCH 27.6 pg (25.0-35.0) 09/05/18 06:30 MCHC 32.4 g/dl (31.0-37.0) 09/05/18 06:30 RDW 15.0 % (11.5-14.5) H 09/05/18 06:30 Plt Count 108 10^3/uL (120.0-450.0) L 09/05/18 06:30 MPV 10.9 fl (7.0-11.0) 09/05/18 06:30 Gran % 71.3 % (50.0-68.0) H 09/05/18 06:30 Lymph % (Auto) 12.8 % (22.0-35.0) L 09/05/18 06:30 Hemphill % (Auto) 14.8 % (1.0-6.0) H 09/05/18 06:30 Eos % (Auto) 0.7 % (1.5-5.0) L 09/05/18 06:30 Baso % (Auto) 0.4 % (0.0-3.0) 09/05/18 06:30 Gran # 4.91 (1.4-6.5) 09/05/18 06:30 Lymph # (Auto) 0.9 (1.2-3.4) L 09/05/18 06:30 Hemphill # (Auto) 1.0 (0.1-0.6) H 09/05/18 06:30 Eos # (Auto) 0.1 (0.0-0.7) 09/05/18 06:30 Baso # (Auto) 0.03 K/mm3 (0.0-2.0) 09/05/18 06:30 PT 14.0 SECONDS (9.4-12.5) H 09/02/18 23:56 INR 1.22 09/02/18 23:56 APTT 31.7 Seconds (25.1-36.5) 09/02/18 23:56 pO2 41 mm/Hg (30-55) 09/03/18 05:12 VBG pH 7.40 (7.32-7.43) 09/03/18 05:12 VBG pCO2 44.0 (40-60) 09/03/18 05:12 VBG HCO3 27.3 mmol/l (21-28) 09/03/18 05:12 VBG Total CO2 28.7 mmol.L (22-28) H 09/03/18 05:12 VBG O2 Sat (Calc) 81.4 % (40-65) H 09/03/18 05:12 VBG Base Excess 2.0 mmol/L (0.0-2.0) 09/03/18 05:12 VBG Potassium 3.9 mmol/L (3.6-5.2) 09/03/18 05:12 Sodium 136.0 mmol/L (132-148) 09/03/18 05:12 Chloride 104.0 mmol/L (98-107) 09/03/18 05:12 Glucose 132 mg/dl (75-110) H 09/03/18 05:12 Lactate 1.7 mmol/L (0.7-2.1) 09/03/18 05:12 FiO2 21.0 % 09/03/18 05:12 Sodium 137 mmol/L (132-148) 09/05/18 06:30 Potassium 3.8 mmol/L (3.6-5.0) 09/05/18 06:30 Chloride 110 mmol/L (98-107) H 09/05/18 06:30 Carbon Dioxide 26 mmol/L (21-33) 09/05/18 06:30 Anion Gap 5 (10-20) L 09/05/18 06:30 BUN 7 mg/dL (7-21) 09/05/18 06:30 Creatinine 0.6 mg/dl (0.8-1.5) L 09/05/18 06:30 Est GFR ( Amer) > 60 09/05/18 06:30 Est GFR (Non-Af Amer) > 60 09/05/18 06:30 Random Glucose 108 mg/dL (70-110) 09/05/18 06:30 Calcium 7.4 mg/dL (8.4-10.5) L 09/05/18 06:30 Phosphorus 2.2 mg/dL (2.5-4.5) L 09/05/18 06:30 Magnesium 2.0 mg/dL (1.7-2.2) 09/05/18 06:30 Total Bilirubin 1.6 mg/dL (0.2-1.3) H 09/05/18 06:30 AST 39 U/L (17-59) 09/05/18 06:30 ALT 23 U/L (7-56) 09/05/18 06:30 Alkaline Phosphatase 101 U/L (38-126) 09/05/18 06:30 Troponin I < 0.01 ng/mL D 09/02/18 23:56 Total Protein 5.9 g/dL (5.8-8.3) 09/05/18 06:30 Albumin 2.4 g/dL (3.0-4.8) L 09/05/18 06:30 Globulin 3.5 gm/dL 09/05/18 06:30 Albumin/Globulin Ratio 0.7 (1.1-1.8) L 09/05/18 06:30 Lipase 131 U/L (23-300) 09/02/18 23:56 Venous Blood Potassium 3.9 mmol/L (3.6-5.2) 09/03/18 05:12 Urine Color Yellow (YELLOW) 09/03/18 03:00 Urine Appearance Clear (CLEAR) 09/03/18 03:00 Urine pH 6.5 (4.7-8.0) 09/03/18 03:00 Ur Specific [place] 1.010 (1.005-1.035) 09/03/18 03:00 Urine Protein Negative mg/dL (<30 mg/dL) 09/03/18 03:00 Urine Glucose (UA) Negative mg/dL (NEGATIVE) 09/03/18 03:00 Urine Ketones Negative mg/dL (NEGATIVE) 09/03/18 03:00 Urine Blood Trace-intact (NEGATIVE) H 09/03/18 03:00 Urine Nitrate Negative (NEGATIVE) 09/03/18 03:00 Urine Bilirubin Negative (NEGATIVE) 09/03/18 03:00 Urine Urobilinogen 0.2 E.U./dL (<1 E.U./dL) 09/03/18 03:00 Ur Leukocyte Esterase Negative Stcaie/uL (NEGATIVE) 09/03/18 03:00 Urine RBC 1 - 3 /hpf (0-2) H 09/03/18 03:00 Urine WBC 0 - 2 /hpf (0-6) 09/03/18 03:00 Ur Epithelial Cells 0 - 2 /hpf (0-5) 09/03/18 03:00 Blood Type B POSITIVE 09/03/18 05:12 Blood Type Confirm B POSITIVE 09/03/18 10:10 Antibody Screen Negative 09/03/18 05:12 BBK History Checked No verified bt 09/03/18 05:12 - Hospital Course Hospital Course: On admission: 72 year old Azeri speaking male with 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 Patient was eating lentil based breakfast when patient had diffuse abdominal pain. Patient had 3 episodes of vomitus after presenting to the ER. Vomitus contained whole food and no blood. Patient's last bowel movement was the morning of 09/02. Patient has never had this pain before and no exacerbating or remitting factors were present. Patient improved throughout the day. Patient denied fever, change in food habits, travel history. Patient denied weight loss, chest pain, heart palpitations, shortness of breath, dysuria, hematuria, numbness/tingling. 12-point ROS was unremarkable except for what was mentioned above. During hospital stay: Patient was found to have right spigelian hernia and SBO on CT and was admitted. Surgery was consulted. Patient underwent surgical hernia repair with no complications. Patient was also found to have incidental finding on CT of calcified prostate gland suspicious for prostate cancer. Patient was referred to outpatient urology. Patient tolerated liquid and soft diet and was optimized for discharge. Please see EMR for full summary. - Date & Time of H&P Date of H&P: 09/03/18 Time of H&P: 05:05 Discharge Exam - Additional Findings Additional findings: - Constitutional Appears: Well, Non-toxic, No Acute Distress - Head Exam Head Exam: ATRAUMATIC, NORMAL INSPECTION, NORMOCEPHALIC - Eye Exam Eye Exam: EOMI Pupil Exam: PERRL - Respiratory Exam Respiratory Exam: Clear to Auscultation Bilateral, NORMAL BREATHING PATTERN - Cardiovascular Exam Cardiovascular Exam: REGULAR RHYTHM, RRR - GI/Abdominal Exam GI & Abdominal Exam: Soft, Tenderness (diffuse), Guarding. absent: Rebound, Distended. Additional comments: surgical dressing in RLQ clean/dry/intact - Extremities Exam Extremities exam: Positive for: full ROM - Neurological Exam Neurological exam: Alert, CN II-XII Intact, Oriented x3 - Skin Skin Exam: Dry, Intact, Normal Color Discharge Plan - Discharge Medications Prescriptions: Amoxicillin/Clavulanate [Augmentin 875 MG-125 MG] 1 tab PO BID #10 tab - Follow Up Plan Condition: GOOD Disposition: HOME/ ROUTINE Patient education suggested?: Yes Instructions: Preventing Falls, Abdominal Hernia Repair (DC), Postoperative Pain (DC), Influenza Virus Vaccine (Inactivated), Pneumococcal Polysaccharide Vaccine (23-Valent) Additional Instructions: Please follow up with your primary medical doctor within one week. Also follow up with your surgeon Dr. Carrera within one week and Dr. Graf for your incidental finding on CT of calcified prostate gland. Please resume your medications as prescribed. You will be given a prescription for an antibiotic (Augmentin)- take twice daily for 5 days. You may take over the counter motrin for pain control. Return to ED if symptoms return or worsen. Referrals: Junior Graf MD [Staff Provider] - Luis Carrera MD [Staff Provider] - <Gene Díaz - Last Filed: 09/06/18 08:55> Provider - Provider Date of Admission: 09/03/18 03:55 Attending physician: Gene Díaz MD Consults: 09/03/18 03:56 General Surgery Consult Stat Comment: Consulting Provider: Luis Carrera Consulting Physician: Luis Carrera Reason for Consult: [facility] Hospital Course - Lab Results Lab Results: Micro Results 09/03/18 03:00 Urine Urine Culture - Final No Growth (<1,000 CFU/ML) Most Recent Lab Values WBC 6.9 10^3/uL (4.5-11.0) 09/05/18 06:30 RBC 3.99 10^6/uL (3.5-6.1) 09/05/18 06:30 Hgb 11.0 g/dL (14.0-18.0) L 09/05/18 06:30 Hct 34.0 % (42.0-52.0) L 09/05/18 06:30 MCV 85.2 fl (80.0-105.0) 09/05/18 06:30 MCH 27.6 pg (25.0-35.0) 09/05/18 06:30 MCHC 32.4 g/dl (31.0-37.0) 09/05/18 06:30 RDW 15.0 % (11.5-14.5) H 09/05/18 06:30 Plt Count 108 10^3/uL (120.0-450.0) L 09/05/18 06:30 MPV 10.9 fl (7.0-11.0) 09/05/18 06:30 Gran % 71.3 % (50.0-68.0) H 09/05/18 06:30 Lymph % (Auto) 12.8 % (22.0-35.0) L 09/05/18 06:30 Hemphill % (Auto) 14.8 % (1.0-6.0) H 09/05/18 06:30 Eos % (Auto) 0.7 % (1.5-5.0) L 09/05/18 06:30 Baso % (Auto) 0.4 % (0.0-3.0) 09/05/18 06:30 Gran # 4.91 (1.4-6.5) 09/05/18 06:30 Lymph # (Auto) 0.9 (1.2-3.4) L 09/05/18 06:30 Hemphill # (Auto) 1.0 (0.1-0.6) H 09/05/18 06:30 Eos # (Auto) 0.1 (0.0-0.7) 09/05/18 06:30 Baso # (Auto) 0.03 K/mm3 (0.0-2.0) 09/05/18 06:30 PT 14.0 SECONDS (9.4-12.5) H 09/02/18 23:56 INR 1.22 09/02/18 23:56 APTT 31.7 Seconds (25.1-36.5) 09/02/18 23:56 pO2 41 mm/Hg (30-55) 09/03/18 05:12 VBG pH 7.40 (7.32-7.43) 09/03/18 05:12 VBG pCO2 44.0 (40-60) 09/03/18 05:12 VBG HCO3 27.3 mmol/l (21-28) 09/03/18 05:12 VBG Total CO2 28.7 mmol.L (22-28) H 09/03/18 05:12 VBG O2 Sat (Calc) 81.4 % (40-65) H 09/03/18 05:12 VBG Base Excess 2.0 mmol/L (0.0-2.0) 09/03/18 05:12 VBG Potassium 3.9 mmol/L (3.6-5.2) 09/03/18 05:12 Sodium 136.0 mmol/L (132-148) 09/03/18 05:12 Chloride 104.0 mmol/L (98-107) 09/03/18 05:12 Glucose 132 mg/dl (75-110) H 09/03/18 05:12 Lactate 1.7 mmol/L (0.7-2.1) 09/03/18 05:12 FiO2 21.0 % 09/03/18 05:12 Sodium 137 mmol/L (132-148) 09/05/18 06:30 Potassium 3.8 mmol/L (3.6-5.0) 09/05/18 06:30 Chloride 110 mmol/L (98-107) H 09/05/18 06:30 Carbon Dioxide 26 mmol/L (21-33) 09/05/18 06:30 Anion Gap 5 (10-20) L 09/05/18 06:30 BUN 7 mg/dL (7-21) 09/05/18 06:30 Creatinine 0.6 mg/dl (0.8-1.5) L 09/05/18 06:30 Est GFR ( Amer) > 60 09/05/18 06:30 Est GFR (Non-Af Amer) > 60 09/05/18 06:30 Random Glucose 108 mg/dL (70-110) 09/05/18 06:30 Calcium 7.4 mg/dL (8.4-10.5) L 09/05/18 06:30 Phosphorus 2.2 mg/dL (2.5-4.5) L 09/05/18 06:30 Magnesium 2.0 mg/dL (1.7-2.2) 09/05/18 06:30 Total Bilirubin 1.6 mg/dL (0.2-1.3) H 09/05/18 06:30 AST 39 U/L (17-59) 09/05/18 06:30 ALT 23 U/L (7-56) 09/05/18 06:30 Alkaline Phosphatase 101 U/L (38-126) 09/05/18 06:30 Troponin I < 0.01 ng/mL D 09/02/18 23:56 Total Protein 5.9 g/dL (5.8-8.3) 09/05/18 06:30 Albumin 2.4 g/dL (3.0-4.8) L 09/05/18 06:30 Globulin 3.5 gm/dL 09/05/18 06:30 Albumin/Globulin Ratio 0.7 (1.1-1.8) L 09/05/18 06:30 Lipase 131 U/L (23-300) 09/02/18 23:56 Venous Blood Potassium 3.9 mmol/L (3.6-5.2) 09/03/18 05:12 Urine Color Yellow (YELLOW) 09/03/18 03:00 Urine Appearance Clear (CLEAR) 09/03/18 03:00 Urine pH 6.5 (4.7-8.0) 09/03/18 03:00 Ur Specific [place] 1.010 (1.005-1.035) 09/03/18 03:00 Urine Protein Negative mg/dL (<30 mg/dL) 09/03/18 03:00 Urine Glucose (UA) Negative mg/dL (NEGATIVE) 09/03/18 03:00 Urine Ketones Negative mg/dL (NEGATIVE) 09/03/18 03:00 Urine Blood Trace-intact (NEGATIVE) H 09/03/18 03:00 Urine Nitrate Negative (NEGATIVE) 09/03/18 03:00 Urine Bilirubin Negative (NEGATIVE) 09/03/18 03:00 Urine Urobilinogen 0.2 E.U./dL (<1 E.U./dL) 09/03/18 03:00 Ur Leukocyte Esterase Negative Stacie/uL (NEGATIVE) 09/03/18 03:00 Urine RBC 1 - 3 /hpf (0-2) H 09/03/18 03:00 Urine WBC 0 - 2 /hpf (0-6) 09/03/18 03:00 Ur Epithelial Cells 0 - 2 /hpf (0-5) 09/03/18 03:00 Blood Type B POSITIVE 09/03/18 05:12 Blood Type Confirm B POSITIVE 09/03/18 10:10 Antibody Screen Negative 09/03/18 05:12 BBK History Checked No verified bt 09/03/18 05:12 Attending/Attestation - Attestation I have personally seen and examined this patient.: Yes I have fully participated in the care of the patient.: Yes I have reviewed all pertinent clinical information, including history, physical exam and plan: Yes Notes (Text): 09/06/18 08:52 Medical record note made by the resident after discussion with my direction and input after the patient was personally seen and examined by me. I have reviewed the chart and agree that the record accurately reflects by personal performance of the history, physical exam, data review, and medical decision-making, in the course for the patient. I have also personally directed the plan of care. 72 year old male with past medical history cirrhosis 2/2 to treated hepatitis C and hydrocele presents with diffuse abdominal pain, found to have right spigelian hernia with small intestinal obstruction. He was evaluated by surgery and underwent hernia repair.He is s/p hernia repair POD#2 Patient is tolerating soft diet with out any issue. He was also evaluated by physical therapy and discharge to home was recommended. Patient has been cleared by surgery for discharge. He will be discharged home and will follow up with PCP and Surgery. His diuretics are resumed at the time of discharge. Management plan was discussed in detail with patient. Education was provided.
[2018-09-05 14:11] VITALS: PULSE 96; TEMP 99.3; O2SAT 97
--- NOTE | 2018-09-05 16:48 | CP.PCM.PN ---
Subjective - Date & Time of Evaluation Date of Evaluation: 09/05/18 Time of Evaluation: 16:45 - Subjective Subjective: Surgery: Dr. Hayden Pt seen and examined. Tolerating diet. No complaints. + Flatus. Objective - Vital Signs/Intake and Output Vital Signs (last 24 hours): Temp Pulse Resp BP Pulse Ox 99.3 F 96 H 20 111/64 97 09/05/18 14:00 09/05/18 14:00 09/05/18 14:00 09/05/18 14:00 09/05/18 14:00 Intake and Output: 09/05/18 09/05/18 06:59 18:59 Intake Total 0 Output Total 300 Balance -300 - Medications Medications: Current Medications Dicyclomine HCl (Bentyl) 20 mg PO BID [facility] Last Admin: 09/04/18 17:11 Dose: 20 mg Docusate Sodium (Colace) 100 mg PO BID [facility] Last Admin: 09/05/18 11:12 Dose: 100 mg Enoxaparin Sodium (Lovenox) 40 mg SC DAILY [facility]; Protocol Last Admin: 09/05/18 11:11 Dose: 40 mg Furosemide (Lasix) 40 mg PO BID [facility] Ibuprofen (Motrin Tab) 400 mg PO Q6H PRN PRN Reason: Pain, Mild (1-3) Morphine Sulfate (Morphine) 1 mg IVP Q6H PRN PRN Reason: Pain, severe (8-10) Ledipasvir/Sofosbuvir [Harvoni 90-400 Mg Tablet] 1 Tab (Home Med) 1 tab PO DAILY [facility] Last Admin: 09/05/18 11:16 Dose: Not Given Ondansetron HCl (Zofran Inj) 4 mg IVP Q6H PRN PRN Reason: Nausea/Vomiting Last Admin: 09/03/18 04:05 Dose: 4 mg Oxycodone/Acetaminophen (Percocet 5/325 Mg Tab) 1 tab PO Q4H PRN PRN Reason: Pain, moderate (4-7) Stop: 09/06/18 14:04 Pantoprazole Sodium (Protonix Ec Tab) 40 mg PO ACB [facility] Spironolactone (Aldactone) 50 mg PO BID [facility] - Labs Labs: 09/05/18 06:30 09/05/18 06:30 PT 14.0 SECONDS (9.4-12.5) H 09/02/18 23:56 INR 1.22 09/02/18 23:56 APTT 31.7 Seconds (25.1-36.5) 09/02/18 23:56 - Constitutional Appears: Non-toxic, No Acute Distress - Head Exam Head Exam: ATRAUMATIC, NORMOCEPHALIC - Eye Exam Eye Exam: EOMI - ENT Exam ENT Exam: Mucous Membranes Moist - Neck Exam Neck Exam: Full ROM - Respiratory Exam Respiratory Exam: NORMAL BREATHING PATTERN. absent: Accessory Muscle Use, Respiratory Distress - GI/Abdominal Exam GI & Abdominal Exam: Soft. absent: Distended, Firm, Guarding, Tenderness Additional comments: Incision C/D/I - Extremities Exam Extremities Exam: absent: Calf Tenderness, Pedal Edema - Neurological Exam Neurological Exam: Alert, Awake, Oriented x3 Assessment and Plan - Assessment and Plan (Free Text) Assessment: 72M POD#2 Open R spigelian hernia repair w. mesh -clear for D/C from surgical standpoint -f/u wAvelino hayden in 1 week -d/w attending Panfilo PGY4
[2018-09-05 17:33] VITALS: BP 120/74
[2018-09-06] MEDS ORDERED: Pantoprazole 40 mg EC Tab PO SCH (07:30)
== END 2018-09-05 18:52 | disposition home or self-care (01) | DRG 227 ==
LOC: ED 21:35 → ERH 09-03 03:55 → 5RNO 09-03 07:17
PROVIDERS: ADMIT Hospitalist; ATTEND Internal Medicine
PROC: 0WUF0JZ Supplement Abdominal Wall with Synthetic Substitute, Open Approach (ICD-10-PCS; principal; 2018-09-03 12:30)
DX: K43.6 Other and unspecified ventral hernia with obstruction, without gangrene (principal); R18.8 Other ascites; K74.60 Unspecified cirrhosis of liver; B19.20 Unspecified viral hepatitis C without hepatic coma; N43.3 Hydrocele, unspecified; N42.89 Other specified disorders of prostate; M25.561 Pain in right knee; K80.80 Other cholelithiasis without obstruction

== ENCOUNTER 2018-10-02 13:51 | Outpatient (CLI) | payer MEDICAID, SELFPAY | END 2018-10-02 13:52 | disposition home or self-care (01) | LOC: LAB 13:51 ==